=== PATIENT | male | born 1945 | race Caucasian/White ===

== ENCOUNTER 2018-08-26 09:43 | Emergency (ER) | payer MEDICARE, BC ==
[2018-08-26 10:15] VITALS: RESP 18; TEMP 98.3
[2018-08-26] MEDS ORDERED: SODIUM CHLORIDE 0.9% 1,000 ML IV STA (10:33)
--- NOTE | 2018-08-26 10:37 | ED ---
General Adult HPI - General Chief complaint: Nausea/Vomiting/Diarrhea Stated complaint: diarrhea Time Seen by Provider: 08/26/18 10:21 Source: patient, RN notes reviewed Mode of arrival: ambulatory Limitations: no limitations - History of Present Illness Initial comments: Patient 73-year-old male presented to the emergency room today with chief complaint of diarrhea times one week. Patient does admit that he's been having episodes for 5 times per day. He does admit that he's had some cramping in lower abdomen greater on the right side. He states it's a 3/10. He does admit that he's felt that his abdomen has been somewhat decreased. Patient's states does not drink enough fluids. Patient was also admits that he's had some confusion. States the 17th turning the ER. States that he was using a car came to try to open up the house door. Patient does admit that he did notice some new symptoms the other day. States this feels better today. Patient denies any recent fever, chills, shortness of breath, chest pain, back pain, nausea or vomiting, numbness or tingling, dysuria or hematuria, constipation, headaches or visual changes, or any other complaints. - Related Data Home Medications Medication Instructions Recorded Confirmed Aspirin EC [Ecotrin] 325 mg PO DAILY 08/26/18 08/26/18 Carvedilol [Coreg] 12.5 mg PO BID 08/26/18 08/26/18 Midodrine [ProAmatine] 5 mg PO TID 08/26/18 08/26/18 Omeprazole 20 mg PO DAILY 08/26/18 08/26/18 Pravastatin Sodium [Pravachol] 40 mg PO DAILY 08/26/18 08/26/18 amLODIPine [Norvasc] 10 mg PO DAILY 08/26/18 08/26/18 Previous Rx's Medication Instructions Recorded Loperamide [Imodium] 2 mg PO DIRECTED #20 capsule 08/26/18 Ondansetron Odt [Zofran ODT] 4 mg PO Q8HR PRN #20 tab 08/26/18 Allergies Allergy/AdvReac Type Severity Reaction Status Date / Time morphine AdvReac Confusion Verified 08/26/18 10:29 Review of Systems ROS Statement: Those systems with pertinent positive or pertinent negative responses have been documented in the HPI. ROS Other: All systems not noted in ROS Statement are negative. Past Medical History Past Medical History: Hyperlipidemia, Hypertension, Myocardial Infarction ([place]) Additional Past Medical History / Comment(s): Cancer of head, neck, throat- resolved. History of Any Multi-Drug Resistant Organisms: None Reported Past Surgical History: Heart Catheterization With Stent Past Psychological History: No Psychological Hx Reported Smoking Status: Never smoker Past Alcohol Use History: None Reported Past Drug Use History: None Reported General Exam - General Exam Comments Initial Comments: General: The patient is awake and alert, in no distress, and does not appear acutely ill. Eye: Pupils are equal, round and reactive to light. Extra-ocular movements are intact. No nystagmus. There is normal conjunctiva bilaterally. No signs of icterus. Ears, nose, mouth and throat: There are moist mucous membranes and no oral lesions. Neck: The neck is supple, there is no tenderness or JVD. Cardiovascular: There is a regular rate and rhythm. No murmur, rub or gallop is appreciated. Respiratory: Lungs are clear to auscultation, respirations are non-labored, breath sounds are equal. No wheezes, stridor, rales, or rhonchi. Gastrointestinal: Soft on palpation. Patient does have tenderness right lower quadrant. No rebound, guarding or CVA tenderness. Musculoskeletal: Normal ROM, no tenderness. Sensation intact. Strength 5/5. Pulses equal bilaterally 2+. Neurological: A&O x 3. CN II-XII intact, There are no obvious motor or sensory deficits. Coordination appears grossly intact. Speech is normal. Skin: Skin is warm and dry and no rashes or lesions are noted. Psychiatric: Cooperative, appropriate mood & affect, normal judgment. Limitations: no limitations Course Vital Signs 08/26/18 08/26/18 10:09 12:57 Temperature 98.3 F Pulse Rate 86 100 Respiratory 18 18 Rate Blood Pressure 91/57 152/102 O2 Sat by Pulse 97 98 Oximetry Medical Decision Making - Medical Decision Making Patient's exam at this time shows no signs of distress. He is feeling better in the emergency room with IV fluids. Patient's CT of the abdomen and pelvis show evidence of colitis. Results were discussed with the patient. Patient's labs been reviewed. Discussed with attending physician Dr. Coffey. At this time patient discharged home. Patient treated with Imodium for diarrhea and Zofran for nausea. Advised following up with the family physician over the next 2 days return if symptoms increase worsen or for any other concerns. - Lab Data Result diagrams: 08/26/18 10:45 08/26/18 10:45 Lab Results 08/26/18 08/26/18 08/26/18 Range/Units 10:45 10:45 10:45 WBC 8.8 (3.8-10.6) k/uL RBC 4.58 (4.30-5.90) m/uL Hgb 14.3 (13.0-17.5) gm/dL Hct 43.2 (39.0-53.0) % MCV 94.4 (80.0-100.0) fL MCH 31.3 (25.0-35.0) pg MCHC 33.2 (31.0-37.0) g/dL RDW 13.1 (11.5-15.5) % Plt Count 210 (150-450) k/uL Neutrophils % 83 % Lymphocytes % 8 % Monocytes % 6 % Eosinophils % 0 % Basophils % 0 % Neutrophils # 7.3 (1.3-7.7) k/uL Lymphocytes # 0.7 L (1.0-4.8) k/uL Monocytes # 0.6 (0-1.0) k/uL Eosinophils # 0.0 (0-0.7) k/uL Basophils # 0.0 (0-0.2) k/uL PT 10.4 (9.0-12.0) sec INR 1.1 (<1.2) APTT 26.7 (22.0-30.0) sec Sodium 134 L (137-145) mmol/L Potassium 4.3 (3.5-5.1) mmol/L Chloride 101 (98-107) mmol/L Carbon Dioxide 24 (22-30) mmol/L Anion Gap 9 mmol/L BUN 24 H (9-20) mg/dL Creatinine 0.95 (0.66-1.25) mg/dL Est GFR (CKD-EPI)AfAm >90 (>60 ml/min/1.73 sqM) Est GFR (CKD-EPI)NonAf 78 (>60 ml/min/1.73 sqM) Glucose 110 H (74-99) mg/dL Calcium 8.9 (8.4-10.2) mg/dL Total Bilirubin 0.7 (0.2-1.3) mg/dL AST 25 (17-59) U/L ALT 30 (21-72) U/L Alkaline Phosphatase 83 (38-126) U/L Total Protein 6.7 (6.3-8.2) g/dL Albumin 3.5 (3.5-5.0) g/dL Amylase <30 L (30-110) U/L Lipase 25 (23-300) U/L Urine Color Urine Appearance (Clear) Urine pH (5.0-8.0) Ur Specific [place] (1.001-1.035) Urine Protein (Negative) Urine Glucose (UA) (Negative) Urine Ketones (Negative) Urine Blood (Negative) Urine Nitrite (Negative) Urine Bilirubin (Negative) Urine Urobilinogen (<2.0) mg/dL Ur Leukocyte Esterase (Negative) Urine RBC (0-5) /hpf Urine WBC (0-5) /hpf Ur Squamous Epith Cells (0-4) /hpf Urine Mucus (None) /hpf 08/26/18 Range/Units 12:54 WBC (3.8-10.6) k/uL RBC (4.30-5.90) m/uL Hgb (13.0-17.5) gm/dL Hct (39.0-53.0) % MCV (80.0-100.0) fL MCH (25.0-35.0) pg MCHC (31.0-37.0) g/dL RDW (11.5-15.5) % Plt Count (150-450) k/uL Neutrophils % % Lymphocytes % % Monocytes % % Eosinophils % % Basophils % % Neutrophils # (1.3-7.7) k/uL Lymphocytes # (1.0-4.8) k/uL Monocytes # (0-1.0) k/uL Eosinophils # (0-0.7) k/uL Basophils # (0-0.2) k/uL PT (9.0-12.0) sec INR (<1.2) APTT (22.0-30.0) sec Sodium (137-145) mmol/L Potassium (3.5-5.1) mmol/L Chloride (98-107) mmol/L Carbon Dioxide (22-30) mmol/L Anion Gap mmol/L BUN (9-20) mg/dL Creatinine (0.66-1.25) mg/dL Est GFR (CKD-EPI)AfAm (>60 ml/min/1.73 sqM) Est GFR (CKD-EPI)NonAf (>60 ml/min/1.73 sqM) Glucose (74-99) mg/dL Calcium (8.4-10.2) mg/dL Total Bilirubin (0.2-1.3) mg/dL AST (17-59) U/L ALT (21-72) U/L Alkaline Phosphatase (38-126) U/L Total Protein (6.3-8.2) g/dL Albumin (3.5-5.0) g/dL Amylase (30-110) U/L Lipase (23-300) U/L Urine Color Yellow Urine Appearance Clear (Clear) Urine pH 5.5 (5.0-8.0) Ur Specific [place] 1.011 (1.001-1.035) Urine Protein 1+ H (Negative) Urine Glucose (UA) Negative (Negative) Urine Ketones Negative (Negative) Urine Blood Trace H (Negative) Urine Nitrite Negative (Negative) Urine Bilirubin Negative (Negative) Urine Urobilinogen <2.0 (<2.0) mg/dL Ur Leukocyte Esterase Negative (Negative) Urine RBC 1 (0-5) /hpf Urine WBC <1 (0-5) /hpf Ur Squamous Epith Cells <1 (0-4) /hpf Urine Mucus Rare H (None) /hpf Disposition Clinical Impression: Colitis Disposition: HOME SELF-CARE Condition: Good Instructions: Colitis (ED) Additional Instructions: Please use medication as discussed. Please follow-up with family doctor in the next 2 days of symptoms have not improved. Please return to emergency room if the symptoms increase or worsen or for any other concerns. Prescriptions: Loperamide [Imodium] 2 mg PO DIRECTED #20 capsule Ondansetron Odt [Zofran ODT] 4 mg PO Q8HR PRN #20 tab PRN Reason: Nausea Is patient prescribed a controlled substance at d/c from ED?: No Referrals: Gerald Nguyen MD [Primary Care Provider] - 1-2 days Time of Disposition: 14:11
[2018-08-26 11:31] LABS: Basophils % (A) 0 %; Eosinophils % (A) 0 %; HCT 43.2 % (39.0-53.0); HGB 14.3 gm/dL (13.0-17.5); Lymphocytes # (A) 0.7 k/uL (1.0-4.8); Lymphocytes % (A) 8 %; MCH 31.3 pg (25.0-35.0); MCHC 33.2 g/dL (31.0-37.0); MCV 94.4 fL (80.0-100.0); Mean Platelet Volume 7.3; Monocytes # (A) 0.6 k/uL (0-1.0); Monocytes % (A) 6 %; Neutrophils # (A) 7.3 k/uL (1.3-7.7); Neutrophils % (A) 83 %; Platelet Count 210 k/uL (150-450); RBC 4.58 m/uL (4.30-5.90); RDW 13.1 % (11.5-15.5); WBC 8.8 k/uL (3.8-10.6)
[2018-08-26 11:47] LABS: ALT 30 U/L (21-72); AST 25 U/L (17-59); Albumin 3.5 g/dL (3.5-5.0); Alkaline Phosphatase 83 U/L (38-126); Amylase <30 U/L (30-110); Anion Gap 9 mmol/L; Blood Urea Nitrogen 24 mg/dL (9-20); Calcium 8.9 mg/dL (8.4-10.2); Carbon Dioxide 24 mmol/L (22-30); Chloride 101 mmol/L (98-107); Glucose 110 mg/dL (74-99); Lipase 25 U/L (23-300); Potassium 4.3 mmol/L (3.5-5.1); Sodium 134 mmol/L (137-145); Total Bilirubin 0.7 mg/dL (0.2-1.3); Total Protein 6.7 g/dL (6.3-8.2)
[2018-08-26 11:55] LABS: INR 1.1 (<1.2); Partial Thromboplastin Time 26.7 sec (22.0-30.0); Prothrombin Time 10.4 sec (9.0-12.0)
[2018-08-26 13:13] LABS: Appearance,Urine Clear (Clear); Bilirubin,Urine Negative (Negative); Blood,Urine Trace (Negative); Color,Urine Yellow; Glucose,Urine (UA) Negative (Negative); Ketones,Urine Negative (Negative); Leukocyte Esterase,Urine Negative (Negative); Mucus,Urine Rare /hpf; Nitrite,Urine Negative (Negative); PH, Urine 5.5 (5.0-8.0); Protein,Urine 1+ (Negative); RBC,Urine 1 /hpf (0-5); Specific Gravity,Urine 1.011 (1.001-1.035); Squamous Epithelial Cell,Urine <1 /hpf (0-4); Urobilinogen,Urine <2.0 mg/dL (<2.0)
--- NOTE | 2018-08-26 13:20 | CT ---
EXAMINATION TYPE: CT abdomen pelvis w con DATE OF EXAM: 08/26/2018 COMPARISON: None HISTORY: Periumbilical pain and diarrhea. CT DLP: 749.6 mGycm Automated exposure control for dose reduction was used. TECHNIQUE: Helical acquisition of images from the lung bases through the pelvis have been completed. CONTRAST: Performed without Oral Contrast and with IV Contrast, patient injected with 100 mL of Isovue 300. FINDINGS: Small umbilical hernia contains fat. LUNG BASES: Some probable dependent atelectatic changes are present. Nodular density in axial image 1 in the left upper lobe measures only 2 to 3 mm laterally, shows some questionable some central incre ased density AORTA: No significant abnormality is appreciated. LIVER/GB: Mild prominence of the intrahepatic biliary ducts, there is no evident mass, gallbladder is somewhat distended PANCREAS: No significant abnormality is seen. SPLEEN: No significant abnormality is seen. ADRENALS: No significant abnormality is seen. KIDNEYS: No significant abnormality is seen. REPRODUCTIVE ORGANS: No significant abnormality is seen BOWEL: Colonic wall thickening is present. Fluid-filled appearance is noted within multiple loops of colon. Appendix is normal FREE AIR: No Free Air visible. ASCITES: None visible. PELVIC ADENOPATHY: None visualized. RETROPERITONEAL ADENOPATHY: No Retroperitoneal Adenopathy visible. URINARY BLADDER: No significant abnormality is seen. OSSEOUS STRUCTURES: Degenerative disc changes are present, there is facet arthropathy especially at the lower lumbar spine. Multilevel Schmorl's node formation in the visualized spine. IMPRESSION: CORRELATE FOR POSSIBLE COLITIS. Follow-up as indicated.
[2018-08-26 14:21] VITALS: BP 145/87; PULSE 78
== END 2018-08-26 14:20 | disposition home or self-care (01) ==
LOC: EC 09:43
DX: K52.9 Noninfective gastroenteritis and colitis, unspecified (principal); R41.0 Disorientation, unspecified; E78.5 Hyperlipidemia, unspecified; I10 Essential (primary) hypertension; I25.2 Old myocardial infarction; Z85.89 Personal history of malignant neoplasm of other organs and systems; Z79.82 Long term (current) use of aspirin; Z79.899 Other long term (current) drug therapy; Z88.5 Allergy status to narcotic agent; Z95.5 Presence of coronary angioplasty implant and graft
CPT/HCPCS: 99284; 96360; 36415; 80053; 82150; 83690; 85025; 85610; 85730; 81001; 74177; Q9967

== ENCOUNTER → 2019-04-07 | Outpatient (CLI) | payer MEDICARE, BC ==
[2019-04-07 13:15] LABS: Basophils # (A) 0.1 k/uL (0-0.2); Basophils % (A) 1 %; Eosinophils # (A) 0.2 k/uL (0-0.7); Eosinophils % (A) 3 %; HCT 45.1 % (39.0-53.0); HGB 14.3 gm/dL (13.0-17.5); Lymphocytes # (A) 1.1 k/uL (1.0-4.8); Lymphocytes % (A) 15 %; MCHC 31.7 g/dL (31.0-37.0); MCV 94.6 fL (80.0-100.0); Mean Platelet Volume 7.2; Monocytes # (A) 0.3 k/uL (0-1.0); Monocytes % (A) 4 %; Neutrophils # (A) 5.4 k/uL (1.3-7.7); Neutrophils % (A) 76 %; Platelet Count 298 k/uL (150-450); RBC 4.76 m/uL (4.30-5.90); RDW 14.7 % (11.5-15.5); WBC 7.2 k/uL (3.8-10.6)
[2019-04-07 19:12] LABS: African American GFR (CKD) 68.1 (60.0-200.0); Albumin 4.5 g/dL (3.80-4.90); Albumin/Globulin Ratio 1.88 (1.60-3.17); Anion Gap 8.6 mmol/L (4.00-12.00); BUN/Creat Ratio 21.67 Ratio (12.00-20.00); Calcium 9.4 mg/dL (8.7-10.3); Carbon Dioxide 28.4 mmol/L (21.6-31.8); Globulin 2.4 g/dL (1.6-3.3); Potassium 4.7 mmol/L (3.5-5.5); Total Bilirubin 0.5 mg/dL (0.2-1.2); Total Protein 6.9 g/dL (6.2-8.2)
[2019-04-07 19:18] LABS: T4, Free (Free Thyroxine) 1.3 ng/dL (0.80-1.80)
[2019-04-07 20:21] LABS: Vitamin D 25 Hydroxy <4.2 ng/mL (30.0-100.0)
== END | disposition home or self-care (01) ==
LOC: LABWHC1 12:25
PROVIDERS: ATTEND Nurse Practitioner Acute Care
DX: R41.3 Other amnesia (principal); R51 Headache; R55 Syncope and collapse; E55.9 Vitamin D deficiency, unspecified
CPT/HCPCS: 36415; 80053; 82306; 82607; 84207; 84439; 84443; 84481; 85025

== ENCOUNTER 2019-12-23 09:47 | Inpatient (IN) | payer MEDICARE, BC ==
[2019-12-23] MEDS ORDERED: SODIUM CHLORIDE 0.9% 500 ML 500 ML IV STA (10:20)
[2019-12-23] MEDS ORDERED: IPRATROPIUM-ALBUTEROL 3 ML NEB INHALATION STA (11:02)
--- NOTE | 2019-12-23 11:23 | XR ---
EXAMINATION TYPE: XR chest 2V DATE OF EXAM: 12/23/2019 COMPARISON: None HISTORY: 74-year-old male shortness of breath, cough, difficulty breathing TECHNIQUE: AP and lateral views FINDINGS: Heart normal size. Mild elongation thoracic aorta. Mild interstitial prominence as a chronic appearan ce. Nodularity of the left base, suspected nipple shadow. Follow-up can be performed utilizing nipple markers. Otherwise, no consolidation or pleural effusion. IMPRESSION: No acute process seen. Left basilar nodule, suspected nipple shadow. Follow-up in 4-6 weeks utilizing nipple markers to reassess.
[2019-12-23 11:28] LABS: Basophils % (A) 0 %; Eosinophils % (A) 0 %; HCT 42.2 % (39.0-53.0); Lymphocytes # (A) 0.7 k/uL (1.0-4.8); Lymphocytes % (A) 5 %; MCH 30.6 pg (25.0-35.0); MCHC 33.2 g/dL (31.0-37.0); MCV 92.4 fL (80.0-100.0); Mean Platelet Volume 7.5; Monocytes # (A) 0.3 k/uL (0-1.0); Monocytes % (A) 2 %; Neutrophils # (A) 14.4 k/uL (1.3-7.7); Neutrophils % (A) 93 %; Platelet Count 456 k/uL (150-450); RBC 4.57 m/uL (4.30-5.90); RDW 12.7 % (11.5-15.5); WBC 15.5 k/uL (3.8-10.6)
[2019-12-23 11:30] LABS: Albumin 3.7 g/dL (3.5-5.0); Calcium 9.3 mg/dL (8.4-10.2); Potassium 4.8 mmol/L (3.5-5.1); Total Bilirubin 0.4 mg/dL (0.2-1.3)
[2019-12-23 11:35] LABS: INR 1.1 (<1.2); Prothrombin Time 10.9 sec (9.0-12.0)
--- NOTE | 2019-12-23 11:52 | ED ---
General Adult HPI - General Chief complaint: Upper Respiratory Infection Stated complaint: pneumonia Time Seen by Provider: 12/23/19 10:20 Source: patient, family, RN notes reviewed Mode of arrival: ambulatory Limitations: no limitations - History of Present Illness Initial comments: 34-year-old male presents emergency Department chief complaint of increasing shortness breath, cough congestion. Patient has been sick for last 3 weeks. Patient has a productive cough she has been on antibiotics in which they recently increased his antibiotics and steroids. Patient states that helping. Family brings notices had increased shortness of breath also given leg swelling. Denies any chest pain he's had intermittent fevers. Patient was sent over emergency Department from PCPs office. Patient denies any leg swelling, abdominal pain. Patient has a history of throat, neck cancer. Patient states this was several years ago. - Related Data Home Medications Medication Instructions Recorded Confirmed Aspirin EC [Ecotrin] 325 mg PO DAILY 08/26/18 08/26/18 Carvedilol [Coreg] 12.5 mg PO BID 08/26/18 08/26/18 Midodrine [ProAmatine] 5 mg PO TID 08/26/18 08/26/18 Omeprazole 20 mg PO DAILY 08/26/18 08/26/18 Pravastatin Sodium [Pravachol] 40 mg PO DAILY 08/26/18 08/26/18 amLODIPine [Norvasc] 10 mg PO DAILY 08/26/18 08/26/18 Previous Rx's Medication Instructions Recorded Loperamide [Imodium] 2 mg PO DIRECTED #20 capsule 08/26/18 Ondansetron Odt [Zofran ODT] 4 mg PO Q8HR PRN #20 tab 08/26/18 Allergies Allergy/AdvReac Type Severity Reaction Status Date / Time morphine AdvReac Confusion Verified 08/26/18 10:29 Review of Systems ROS Statement: Those systems with pertinent positive or pertinent negative responses have been documented in the HPI. ROS Other: All systems not noted in ROS Statement are negative. Past Medical History Past Medical History: Hyperlipidemia, Hypertension, Myocardial Infarction ([place]) Additional Past Medical History / Comment(s): Cancer of head, neck, throat-resolved. History of Any Multi-Drug Resistant Organisms: None Reported Past Surgical History: Heart Catheterization With Stent Past Psychological History: No Psychological Hx Reported Smoking Status: Never smoker Past Alcohol Use History: None Reported Past Drug Use History: None Reported General Exam Limitations: no limitations General appearance: alert, in no apparent distress Head exam: Present: atraumatic, normocephalic, normal inspection Eye exam: Present: normal appearance, PERRL, EOMI. Absent: scleral icterus, conjunctival injection, periorbital swelling ENT exam: Present: normal exam, normal oropharynx, mucous membranes moist, TM's normal bilaterally Neck exam: Present: normal inspection, full ROM. Absent: tenderness, meningismus, lymphadenopathy Respiratory exam: Present: wheezes, rhonchi. Absent: respiratory distress, rales, stridor Cardiovascular Exam: Present: regular rate, normal rhythm, normal heart sounds. Absent: systolic murmur, diastolic murmur, rubs, gallop, clicks GI/Abdominal exam: Present: soft, normal bowel sounds. Absent: distended, tenderness, guarding, rebound, rigid Course Vital Signs 12/23/19 12/23/19 12/23/19 10:06 10:46 10:50 Temperature 97.7 F Pulse Rate 85 89 Respiratory 18 18 18 Rate Blood Pressure 95/63 140/101 O2 Sat by Pulse 96 97 Oximetry 12/23/19 12/23/19 11:14 11:35 Temperature Pulse Rate 91 93 Respiratory Rate Blood Pressure O2 Sat by Pulse Oximetry Medical Decision Making - Medical Decision Making 74-year-old male presented for dyspnea. Patient had persistent wheezing, exertional dyspnea difficulty ambulating without shortness of breath or talking or shortness of breath. Patient will be admitted for tracheobronchitis fell outpatient treatment. - Lab Data Result diagrams: 12/23/19 10:55 12/23/19 10:55 Lab Results 12/23/19 12/23/19 12/23/19 Range/Units 10:55 10:55 10:55 WBC 15.5 H (3.8-10.6) k/uL RBC 4.57 (4.30-5.90) m/uL Hgb 14.0 (13.0-17.5) gm/dL Hct 42.2 (39.0-53.0) % MCV 92.4 (80.0-100.0) fL MCH 30.6 (25.0-35.0) pg MCHC 33.2 (31.0-37.0) g/dL RDW 12.7 (11.5-15.5) % Plt Count 456 H (150-450) k/uL Neutrophils % 93 % Lymphocytes % 5 % Monocytes % 2 % Eosinophils % 0 % Basophils % 0 % Neutrophils # 14.4 H (1.3-7.7) k/uL Lymphocytes # 0.7 L (1.0-4.8) k/uL Monocytes # 0.3 (0-1.0) k/uL Eosinophils # 0.0 (0-0.7) k/uL Basophils # 0.0 (0-0.2) k/uL PT (9.0-12.0) sec INR (<1.2) APTT (22.0-30.0) sec Sodium 134 L (137-145) mmol/L Potassium 4.8 (3.5-5.1) mmol/L Chloride 102 (98-107) mmol/L Carbon Dioxide 21 L (22-30) mmol/L Anion Gap 11 mmol/L BUN 34 H (9-20) mg/dL Creatinine 1.04 (0.66-1.25) mg/dL Est GFR (CKD-EPI)AfAm 81 (>60 ml/min/1.73 sqM) Est GFR (CKD-EPI)NonAf 70 (>60 ml/min/1.73 sqM) Glucose 143 H (74-99) mg/dL Plasma Lactic Acid Elvin 1.3 (0.7-2.0) mmol/L Calcium 9.3 (8.4-10.2) mg/dL Magnesium 2.0 (1.6-2.3) mg/dL Total Bilirubin 0.4 (0.2-1.3) mg/dL AST 18 (17-59) U/L ALT 12 (4-49) U/L Alkaline Phosphatase 93 (38-126) U/L Troponin I (0.000-0.034) ng/mL NT-Pro-B Natriuret Pep pg/mL Total Protein 7.0 (6.3-8.2) g/dL Albumin 3.7 (3.5-5.0) g/dL Influenza Type A RNA (Not Detectd) Influenza Type B (PCR) (Not Detectd) 12/23/19 12/23/19 12/23/19 Range/Units 10:55 10:55 10:55 WBC (3.8-10.6) k/uL RBC (4.30-5.90) m/uL Hgb (13.0-17.5) gm/dL Hct (39.0-53.0) % MCV (80.0-100.0) fL MCH (25.0-35.0) pg MCHC (31.0-37.0) g/dL RDW (11.5-15.5) % Plt Count (150-450) k/uL Neutrophils % % Lymphocytes % % Monocytes % % Eosinophils % % Basophils % % Neutrophils # (1.3-7.7) k/uL Lymphocytes # (1.0-4.8) k/uL Monocytes # (0-1.0) k/uL Eosinophils # (0-0.7) k/uL Basophils # (0-0.2) k/uL PT 10.9 (9.0-12.0) sec INR 1.1 (<1.2) APTT 23.0 (22.0-30.0) sec Sodium (137-145) mmol/L Potassium (3.5-5.1) mmol/L Chloride (98-107) mmol/L Carbon Dioxide (22-30) mmol/L Anion Gap mmol/L BUN (9-20) mg/dL Creatinine (0.66-1.25) mg/dL Est GFR (CKD-EPI)AfAm (>60 ml/min/1.73 sqM) Est GFR (CKD-EPI)NonAf (>60 ml/min/1.73 sqM) Glucose (74-99) mg/dL Plasma Lactic Acid Elvin (0.7-2.0) mmol/L Calcium (8.4-10.2) mg/dL Magnesium (1.6-2.3) mg/dL Total Bilirubin (0.2-1.3) mg/dL AST (17-59) U/L ALT (4-49) U/L Alkaline Phosphatase (38-126) U/L Troponin I <0.012 (0.000-0.034) ng/mL NT-Pro-B Natriuret Pep 423 pg/mL Total Protein (6.3-8.2) g/dL Albumin (3.5-5.0) g/dL Influenza Type A RNA (Not Detectd) Influenza Type B (PCR) (Not Detectd) 12/23/19 Range/Units 11:10 WBC (3.8-10.6) k/uL RBC (4.30-5.90) m/uL Hgb (13.0-17.5) gm/dL Hct (39.0-53.0) % MCV (80.0-100.0) fL MCH (25.0-35.0) pg MCHC (31.0-37.0) g/dL RDW (11.5-15.5) % Plt Count (150-450) k/uL Neutrophils % % Lymphocytes % % Monocytes % % Eosinophils % % Basophils % % Neutrophils # (1.3-7.7) k/uL Lymphocytes # (1.0-4.8) k/uL Monocytes # (0-1.0) k/uL Eosinophils # (0-0.7) k/uL Basophils # (0-0.2) k/uL PT (9.0-12.0) sec INR (<1.2) APTT (22.0-30.0) sec Sodium (137-145) mmol/L Potassium (3.5-5.1) mmol/L Chloride (98-107) mmol/L Carbon Dioxide (22-30) mmol/L Anion Gap mmol/L BUN (9-20) mg/dL Creatinine (0.66-1.25) mg/dL Est GFR (CKD-EPI)AfAm (>60 ml/min/1.73 sqM) Est GFR (CKD-EPI)NonAf (>60 ml/min/1.73 sqM) Glucose (74-99) mg/dL Plasma Lactic Acid [place] (0.7-2.0) mmol/L Calcium (8.4-10.2) mg/dL Magnesium (1.6-2.3) mg/dL Total Bilirubin (0.2-1.3) mg/dL AST (17-59) U/L ALT (4-49) U/L Alkaline Phosphatase (38-126) U/L Troponin I (0.000-0.034) ng/mL NT-Pro-B Natriuret Pep pg/mL Total Protein (6.3-8.2) g/dL Albumin (3.5-5.0) g/dL Influenza Type A RNA Not Detected (Not Detectd) Influenza Type B (PCR) Not Detected (Not Detectd) Disposition Clinical Impression: Tracheobronchitis, Acute bronchospasm, Dyspnea, Failure of outpatient treatment Disposition: ADMITTED IP TO THIS HOSP Condition: Fair Referrals: Gerald Nguyen MD [Primary Care Provider] - 1-2 days
[2019-12-23] MEDS ORDERED: methylPREDNISolone SOD SUCCI 125 MG/2 ML VIAL IV STA (13:02)
[2019-12-23] MEDS ORDERED: AZITHROMYCIN 500 MG in SODIUM CHLORIDE 0.9% 250 ML IVPB STA (13:03)
[2019-12-23] MEDS ORDERED: cefTRIAXone IN SWFI 1,000 MG/10 ML SYRINGE IVP STA (13:03)
--- NOTE | 2019-12-23 15:27 | P.CNPUL ---
History of Present Illness Consult date: 12/23/19 Requesting physician: Reji Irby Reason for consult: dyspnea, cough Chief complaint: Wheezing for the last 3 weeks History of present illness: This is a 74-year-old white male with history of throat cancer, diagnosed and treated over 20 years ago. Patient had surgery done at the [facility]. He never smoked. Patient is known to have history of hypertension, GERD, hypercholesterolemia, presented to his primary care physician recently with 3 weeks history of cough and wheezing. Cough is described as productive with whitish phlegm. But mostly the wheezing has been persistent. Patient denies any specific exposure. Denies any previous history of COPD or asthmatic bronchitis or bronchial asthma. Denies any active GERD symptoms. Patient was given by his primary care physician a course of antibiotics and steroids burst and taper. However has not been making much improvement. Hence the patient was sent to the ER. Chest x-ray showed no evidence of active disease. There was a questionable left lung nodule but seems to be more of a nipple shadow. His CBC showed leukocytosis with WBC count of 15.5. Hemoglobin 14.0. Electrolytes were normal. Liver profile was normal. Lactic acid was normal. Influenza screen was negative. Patient was admitted, and this consult was initiated. Review of Systems Constitutional: Negative, denies fever chills or weight loss. HEENT: Negative.. Pulmonary: As noted in HPI, mostly cough and wheezing. Cardiac: Denies any chest pain or orthopnea PND. GI: Denies any nausea vomiting abdominal pain melena or hematemesis. Genitourinary: Denies any dysuria hematuria frequency urgency. Skin negative denies any rashes. Hematologic: No clotting bleeding or bruising Neurologic: Denies headache blurred vision dizziness or syncope. Endocrine: Denies any heat or cold intolerance. Musculoskeletal: Denies any muscle weakness or limitation in range of motion. Psychiatric: Denies any symptoms of active depression. Past Medical History Past Medical History: GERD/Reflux, Hyperlipidemia, Hypertension, Myocardial Infarction ([place]), Prostate Disorder, Rheumatoid Arthritis ([place]) Additional Past Medical History / Comment(s): Cancer of head, neck, throat- resolved, had in 1999 did receive radiation, hypotension (BP fluctuates a lot), Last Myocardial Infarction Date:: 10-29-01 History of Any Multi-Drug Resistant Organisms: None Reported Past Surgical History: Heart Catheterization With Stent Additional Past Surgical History / Comment(s): had a carotid stent placed during CA treatment. 42 lymph nodes removed. Date of Last Stent Placement:: 10-29-01 Past Psychological History: No Psychological Hx Reported Smoking Status: Never smoker Past Alcohol Use History: None Reported Past Drug Use History: None Reported - Past Family History Father Additional Family Medical History / Comment(s): heart disease Mother Additional Family Medical History / Comment(s): heart disease Medications and Allergies Home Medications Medication Instructions Recorded Confirmed Type Omeprazole 20 mg PO DAILY 08/26/18 12/23/19 History Pravastatin Sodium [Pravachol] 40 mg PO DAILY 08/26/18 12/23/19 History Albuterol Nebulized [Ventolin 2.5 mg INHALATION RT-TID PRN 12/23/19 12/23/19 History Nebulized] Carvedilol [Coreg] 3.125 mg PO BID 12/23/19 12/23/19 History Gas Relief 1 tab PO DAILY PRN 12/23/19 12/23/19 History HYDROcodone/APAP 5-325MG [[place] 1 tab PO BID PRN 12/23/19 12/23/19 History 5-325] Levofloxacin [Levaquin] 500 mg PO DAILY 12/23/19 12/23/19 History Midodrine HCl [ProAmantine] 2.5 mg PO TID 12/23/19 12/23/19 History Naproxen 500 mg PO BID PRN 12/23/19 12/23/19 History Renew Life 1 tab PO DAILY 12/23/19 12/23/19 History Tamsulosin HCl [Flomax] 0.4 mg PO BID 12/23/19 12/23/19 History amLODIPine [Norvasc] 2.5 mg PO DAILY 12/23/19 12/23/19 History predniSONE See Taper PO DAILY 12/23/19 12/23/19 History Allergies Allergy/AdvReac Type Severity Reaction Status Date / Time morphine AdvReac Confusion Verified 12/23/19 14:12 Physical Exam Vitals: Vital Signs Temp Pulse Pulse Resp BP BP Pulse Ox 12/23/19 15:00 98.4 F 72 16 136/56 94 L 12/23/19 14:09 95/68 12/23/19 13:26 89 16 141/95 98 12/23/19 11:35 93 12/23/19 11:14 91 12/23/19 10:50 18 12/23/19 10:46 89 18 140/101 97 12/23/19 10:06 97.7 F 85 18 95/63 96 Intake and Output 12/23/19 12/23/19 12/23/19 06:59 14:59 22:59 Other: Weight 69.4 kg Physical Exam: Revealed a 74-year-old white male in no distress. Head: Atraumatic, normocephalic. HEENT:[Neck is supple.] [No neck masses.] [No thyromegaly.] [No JVD.] Chest: [Symmetrical chest expansion, diffuse rhonchi and wheezes noted bilaterally more so on forced expiratory maneuver. Cardiac Exam: [Normal S1 and S2, no S3 gallop, no murmur.] Abdomen: [Soft, nontender, no megaly, no rebound, no guarding, normal bowel sounds.] Extremities: [No clubbing, no edema, no cyanosis.] Neurological Exam: [No focal neurologic deficit.] Results - Laboratory Findings CBC and BMP: 12/23/19 10:55 12/23/19 10:55 PT/INR, D-dimer PT 10.9 sec (9.0-12.0) 12/23/19 10:55 INR 1.1 (<1.2) 12/23/19 10:55 Abnormal lab findings: Abnormal Labs 12/23/19 12/23/19 10:55 10:55 WBC 15.5 H Plt Count 456 H Neutrophils # 14.4 H Lymphocytes # 0.7 L Sodium 134 L Carbon Dioxide 21 L BUN 34 H Glucose 143 H - Diagnostic Findings Chest x-ray: image reviewed (Chest x-ray is basically unremarkable, left lower lobe nodule likely a nipple shadow.) Assessment and Plan Assessment: Impression: Acute tracheobronchitis and reactive bronchospasm. Failed outpatient therapy. History of head and neck cancer, diagnosed and treated over 20 years ago. Benign essential hypertension History of coronary artery disease and previous [place], previous stent placement. Dyslipidemia. Recommendation: Antibiotics, patient is presently on Rocephin and Zithromax. Steroids patient is presently on methylprednisolone 60 mg IV push every 6 hours. Bronchodilators/add Pulmicort. Consider bronchoscopy if the patient does not improve in the next 48 hours. Resume home meds including Coreg. And resume pravastatin. We will reevaluate the patient in the next 24 hours, and depending on his response to treatment further decisions to be made. Time with Patient: Greater than 30
[2019-12-23] MEDS: MIDODRINE 5 MG TAB PO SCH ×2 (16:24→21:09)
[2019-12-23 16:31] LABS: Glucose,Whole Blood 158 mg/dL (75-99)
[2019-12-23] MEDS: CARVEDILOL 12.5 MG TAB PO SCH (16:56)
[2019-12-23] MEDS: INSULIN ASPART (NovoLOG) 100 UNIT/ML VIAL SQ SCH ×2 (16:56→21:10)
[2019-12-23] MEDS ORDERED: methylPREDNISolone SOD SUCCI 125 MG/2 ML VIAL IV SCH (18:00)
[2019-12-23] MEDS: IPRATROPIUM-ALBUTEROL 3 ML NEB INHALATION SCH ×2 (18:57→18:58)
[2019-12-23] MEDS: BUDESONIDE 1 MG/2 ML NEBU INHALATION SCH (18:58)
[2019-12-23 20:07] LABS: Glucose,Whole Blood 148 mg/dL (75-99)
[2019-12-23] MEDS: ENOXAPARIN 40 MG/0.4 ML SYRINGE SQ SCH (21:17)
--- NOTE | 2019-12-23 21:17 | P.HPIM ---
History of Present Illness H&P Date: 12/23/19 Chief Complaint: Congested cough History of presenting complaint: This is a very pleasant [address] HUNT. Chronic stable medical conditions include GERD, hypertension, hyperlipidemia, coronary artery distended, rheumatoid arthritis. Patient also had a history of head and neck cancer back in 1999 treated with radiation treatment. Patient for 2 weeks has been struggling with wheezing shortness of breath cough congestion and clear sputum. Has a course of antibiotic steroids by his family doctor. Not much improvement. Because of steroids appetite is actually rather good. Significant congested still hence admitted for the same. No muscle achiness. Review of systems: GEN.: Tired EYES: None HEENT: None NECK: None RESPIRATORY: As above] CARDIOVASCULAR: None GASTROINTESTINAL: None GENITOURINARY: None MUSCULOSKELETAL: Joint pains LYMPHATICS: None HEMATOLOGICAL: None PSYCHIATRY: None NEUROLOGICAL: None Past medical history to include: GERD, hyperlipidemia, hypertension, rheumatoid arthritis, head neck and throat cancer resolved in 1999 and radiation treatment, prostate disorder, carotid stent, coronary artery disease with stent Social history: Does not smoke or drink alcohol. . Retired from [employer] Physical examination: VITAL SIGNS: BMI 97.7, 85, 18, 140/101, 97% on room air GENERAL: BMI 24, sitting up, not in distress. EYES: Pupils equal. Conjunctiva normal. HEENT: External appearance of nose and ears normal, oral cavity grossly normal. NECK: JVD not raised; masses not palpable. HEART: First and second heart sounds are normal; no edema. LUNGS: Respiratory rate increased, decreased breath sound expiratory coarse crackles. ABDOMEN: Soft, nontender, liver spleen not palpable, no masses palpable. PSYCH: Alert and oriented x3; mood and affect normal. NEUROLOGICAL: Cranial nerves grossly intact; no facial asymmetry, power and sensation grossly intact. LYMPHATICS: No lymph nodes palpable in the axilla and neck Investigations: White count 15.5 hemoglobin 14 platelets 456 potassium 4.8 bun 34 creatinine 1.04 ProBNP 423 troponin I negative Influenza A and B both negative Chest x-ray film personally reviewed by me-some scanty infiltrate EKG tracing personally reviewed by me-normal sinus rhythm Assessment: -This is a patient with 2 weeks of respiratory symptoms including cough congestion clear sputum no fever or chills. Has received antibiotic steroids as an outpatient. No fevers. Appetite is good. Patient most likely is had a viral pneumonitis. Patient still congested in the chest. Clear sputum. Antibiotics may be of little benefit. Often times this can on a course of 4-5 weeks. -GERD -Essential hypertension -Hyperlipidemia -Coronary artery disease with stent -Rheumatoid arthritis Plan: Patient be started on bronchodilators, IV and inhaled steroids. Add Mucinex 1200 mg twice a day. Also has some Claritin-D. Other home medications resumed. Lovenox for DVT prophylaxis. Care was discussed with the patient question were answered. Past Medical History Past Medical History: GERD/Reflux, Hyperlipidemia, Hypertension, Myocardial Infarction ([place]), Prostate Disorder, Rheumatoid Arthritis (RA) Additional Past Medical History / Comment(s): Cancer of head, neck, throat- resolved, had in 1999 did receive radiation, hypotension (BP fluctuates a lot), Last Myocardial Infarction Date:: 10-29-01 History of Any Multi-Drug Resistant Organisms: None Reported Past Surgical History: Heart Catheterization With Stent Additional Past Surgical History / Comment(s): had a carotid stent placed during CA treatment. 42 lymph nodes removed. Date of Last Stent Placement:: 10-29-01 Past Psychological History: No Psychological Hx Reported Smoking Status: Never smoker Past Alcohol Use History: None Reported Past Drug Use History: None Reported - Past Family History Father Additional Family Medical History / Comment(s): heart disease Mother Additional Family Medical History / Comment(s): heart disease Medications and Allergies Home Medications Medication Instructions Recorded Confirmed Type Omeprazole 20 mg PO DAILY 08/26/18 12/23/19 History Pravastatin Sodium [Pravachol] 40 mg PO DAILY 08/26/18 12/23/19 History Albuterol Nebulized [Ventolin 2.5 mg INHALATION RT-TID PRN 12/23/19 12/23/19 History Nebulized] Carvedilol [Coreg] 3.125 mg PO BID 12/23/19 12/23/19 History Gas Relief 1 tab PO DAILY PRN 12/23/19 12/23/19 History HYDROcodone/APAP 5-325MG [[place] 1 tab PO BID PRN 12/23/19 12/23/19 History 5-325] Levofloxacin [Levaquin] 500 mg PO DAILY 12/23/19 12/23/19 History Midodrine HCl [ProAmantine] 2.5 mg PO TID 12/23/19 12/23/19 History Naproxen 500 mg PO BID PRN 12/23/19 12/23/19 History Renew Life 1 tab PO DAILY 12/23/19 12/23/19 History Tamsulosin HCl [Flomax] 0.4 mg PO BID 12/23/19 12/23/19 History amLODIPine [Norvasc] 2.5 mg PO DAILY 12/23/19 12/23/19 History predniSONE See Taper PO DAILY 12/23/19 12/23/19 History Allergies Allergy/AdvReac Type Severity Reaction Status Date / Time morphine AdvReac Confusion Verified 12/23/19 14:12 Physical Exam Vitals: Vital Signs Temp Pulse Pulse Resp BP BP Pulse Ox 12/23/19 19:13 80 12/23/19 18:59 78 12/23/19 15:00 98.4 F 72 16 136/56 94 L 12/23/19 14:09 95/68 12/23/19 13:26 89 16 141/95 98 12/23/19 11:35 93 12/23/19 11:14 91 12/23/19 10:50 18 12/23/19 10:46 89 18 140/101 97 12/23/19 10:06 97.7 F 85 18 95/63 96 Intake and Output 12/23/19 12/23/19 12/23/19 06:59 14:59 22:59 Intake Total 220 Balance 220 Intake: Oral 220 Other: Weight 69.4 kg Results CBC & Chem 7: 12/23/19 10:55 12/23/19 10:55 Labs: Abnormal Lab Results - Last 24 Hours (Table) 12/23/19 12/23/19 12/23/19 Range/Units 10:55 10:55 16:29 WBC 15.5 H (3.8-10.6) k/uL Plt Count 456 H (150-450) k/uL Neutrophils # 14.4 H (1.3-7.7) k/uL Lymphocytes # 0.7 L (1.0-4.8) k/uL Sodium 134 L (137-145) mmol/L Carbon Dioxide 21 L (22-30) mmol/L BUN 34 H (9-20) mg/dL Glucose 143 H (74-99) mg/dL POC Glucose (mg/dL) 158 H (75-99) mg/dL 12/23/19 Range/Units 20:03 WBC (3.8-10.6) k/uL Plt Count (150-450) k/uL Neutrophils # (1.3-7.7) k/uL Lymphocytes # (1.0-4.8) k/uL Sodium (137-145) mmol/L Carbon Dioxide (22-30) mmol/L BUN (9-20) mg/dL Glucose (74-99) mg/dL POC Glucose (mg/dL) 148 H (75-99) mg/dL Thrombosis Risk Factor Assmnt - Choose All That Apply Any of the Below Risk Factors Present?: Yes Each Factor Represents 1 point: Serious lung disease incl. pneumonia (< 1month) Each Risk Factor Represents 3 Points: Age 75 years or older Other congenital or acquired thrombophilia - If yes, enter type in comment: No Thrombosis Risk Factor Assessment Total Risk Factor Score: 4 Thrombosis Risk Factor Assessment Level: Moderate Risk
[2019-12-23] MEDS: LORATADINE-PSEUDOEPH 5-120 MG 1 EACH TAB.ER.12H PO SCH (21:44)
[2019-12-23] MEDS: guaiFENesin 600 MG TABLET.ER PO SCH (22:09)
[2019-12-23] MEDS: methylPREDNISolone SOD SUCCI 40 MG/ML 1 ML VIAL IV SCH (23:17)
[2019-12-24 06:49] LABS: Glucose,Whole Blood 182 mg/dL (75-99)
[2019-12-24] MEDS: BUDESONIDE 1 MG/2 ML NEBU INHALATION SCH ×2 (07:19→19:20)
[2019-12-24] MEDS: IPRATROPIUM-ALBUTEROL 3 ML NEB INHALATION SCH ×4 (07:19→19:20)
[2019-12-24] MEDS: CARVEDILOL 12.5 MG TAB PO SCH ×2 (07:35→16:44)
[2019-12-24] MEDS: amLODIPine 10 MG TAB PO SCH (07:35)
[2019-12-24] MEDS: AZITHROMYCIN 500 MG TAB PO SCH (07:35)
[2019-12-24] MEDS: methylPREDNISolone SOD SUCCI 40 MG/ML 1 ML VIAL IV SCH (07:36)
[2019-12-24] MEDS: MIDODRINE 5 MG TAB PO SCH ×3 (07:36→21:00)
[2019-12-24] MEDS: guaiFENesin 600 MG TABLET.ER PO SCH ×2 (07:36→21:00)
[2019-12-24] MEDS: PRAVASTATIN SODIUM 40 MG TAB PO SCH (07:36)
[2019-12-24] MEDS: LORATADINE-PSEUDOEPH 5-120 MG 1 EACH TAB.ER.12H PO SCH ×2 (07:36→21:00)
[2019-12-24] MEDS: ENOXAPARIN 40 MG/0.4 ML SYRINGE SQ SCH (07:36)
[2019-12-24] MEDS: INSULIN ASPART (NovoLOG) 100 UNIT/ML VIAL SQ SCH ×4 (07:37→21:00)
[2019-12-24 11:41] LABS: Glucose,Whole Blood 155 mg/dL (75-99)
--- NOTE | 2019-12-24 12:08 | P.PN ---
Subjective Progress Note Date: 12/24/19 Principal diagnosis: Acute tracheobronchitis and reactive bronchospasm. This is a 74-year-old white male with history of throat cancer, diagnosed and treated over 20 years ago. Patient had surgery done at the [facility]. He never smoked. Patient is known to have history of hypertension, GERD, hypercholesterolemia, presented to his primary care physician recently with 3 weeks history of cough and wheezing. Cough is described as productive with whitish phlegm. But mostly the wheezing has been persistent. Patient denies any specific exposure. Denies any previous history of COPD or asthmatic bronchitis or bronchial asthma. Denies any active GERD symptoms. Patient was given by his primary care physician a course of antibiotics and steroids burst and taper. However has not been making much improvement. Hence the patient was sent to the ER. Chest x-ray showed no evidence of active disease. There was a questionable left lung nodule but seems to be more of a nipple shadow. His CBC showed leukocytosis with WBC count of 15.5. Hemoglobin 14.0. Electrolytes were normal. Liver profile was normal. Lactic acid was normal. Influenza screen was negative. Patient was admitted, and this consult was initiated. Reevaluated today on 12/24/2019, patient is about the same. Continues to cough and wheeze. Cough is productive with whitish phlegm, denies any fever no chills no hemoptysis no chest pain. Patient feels chest tightness mostly. Patient r emains on antibiotics, steroids, bronchodilators, minimal improvement if any. Hence I discussed with the patient that if he continues to do the same over the next 24 hours, we will likely arrange for bronchoscopy and airways evaluation early Sunday. Objective - Vital Signs Vital signs: Vital Signs Temp 97.4 F L 12/24/19 04:30 Pulse 76 12/24/19 10:55 Resp 20 12/24/19 04:30 BP 150/89 12/24/19 04:30 Pulse Ox 98 12/24/19 04:30 Intake & Output 12/23/19 12/24/19 12/24/19 18:59 06:59 18:59 Intake Total 220 400 390 Balance 220 400 390 Weight 69.4 kg Intake: Oral 220 400 390 Other: Voiding Method Toilet # Voids 1 2 - Exam Physical Exam: Revealed a 74-year-old white male in no distress. Head: Atraumatic, normocephalic. HEENT:[Neck is supple.] [No neck masses.] [No thyromegaly.] [No JVD.] Postsurgical changes noted in the neck area on the right side. Chest: [Symmetrical chest expansion, diffuse rhonchi and wheezes noted bilatera lly more so on forced expiratory maneuver. Cardiac Exam: [Normal S1 and S2, no S3 gallop, no murmur.] Abdomen: [Soft, nontender, no megaly, no rebound, no guarding, normal bowel sounds.] Extremities: [No clubbing, no edema, no cyanosis.] Neurological Exam: [No focal neurologic deficit.] Psychiatric: Normal mood, affect and normal mental status examination. Skin: No rashes. - Labs CBC & Chem 7: 12/23/19 10:55 12/23/19 10:55 Labs: Abnormal Lab Results - Last 24 Hours (Table) 12/23/19 12/23/19 12/24/19 Range/Units 16:29 20:03 06:47 POC Glucose (mg/dL) 158 H 148 H 182 H (75-99) mg/dL 12/24/19 Range/Units 11:39 POC Glucose (mg/dL) 155 H (75-99) mg/dL Assessment and Plan Assessment: Impression: Acute tracheobronchitis and reactive bronchospasm. Failed outpatient therapy. History of head and neck cancer, diagnosed and treated over 20 years ago. Benign essential hypertension History of coronary artery disease and previous [place], previous stent placement. Dyslipidemia. Recommendation: Continue antibiotics, bronchodilators, steroids. Consider bronchoscopy if the patient does not improve in the next 24 hours.. Resume home meds . Not ready for any discharge planning at this point, Will likely consider bronchoscopy next Sunday. Time with Patient: Less than 30
[2019-12-24] MEDS: methylPREDNISolone SOD SUCCI 125 MG/2 ML VIAL IV SCH ×2 (16:44→23:34)
[2019-12-24 16:47] LABS: Glucose,Whole Blood 95 mg/dL (75-99)
[2019-12-24 19:57] LABS: Glucose,Whole Blood 172 mg/dL (75-99)
--- NOTE | 2019-12-24 20:38 | P.PN ---
Progress Note - Text Progress Note Date: 12/24/19 Chief Complaint: Congested cough History of presenting complaint: This is a very pleasant [address] HUNT. Chronic stable medical conditions include GERD, hypertension, hyperlipidemia, coronary artery distended, rheumatoid arthritis. Patient also had a history of head and neck cancer back in 1999 treated with radiation treatment. Patient for 2 weeks has been struggling with wheezing shortness of breath cough congestion and clear sputum. Has a course of antibiotic steroids by his family doctor. Not much improvement. Because of steroids appetite is actually rather good. Significant congested still hence admitted for the same. No muscle achiness. Admitted with bilateral pneumonitis and secondary bronchospasm. Today-feeling a bit better. Some patchiness in the chest. Sitting up in a chair. Did tolerate some breakfast. She'll bit congested. Review of systems: Was done for constitutional, cardiovascular, GI, pulmonary. relevant finding as above Active Medications Albuterol/Ipratropium (Duoneb 0.5 Mg-3 Mg/3 Ml Soln) 3 ml INHALATION RT-QID [facility] Last Admin: 12/24/19 19:20 Dose: 3 ml Documented by: Amlodipine Besylate (Norvasc) 10 mg PO DAILY [facility] Last Admin: 12/24/19 07:35 Dose: 10 mg Documented by: Azithromycin (Zithromax) 500 mg PO DAILY [facility] Last Admin: 12/24/19 07:35 Dose: 500 mg Documented by: Budesonide (Pulmicort) 1 mg INHALATION RT-BID [facility] Last Admin: 12/24/19 19:20 Dose: 1 mg Documented by: Carvedilol (Coreg) 12.5 mg PO BID-W/MEALS [facility] Last Admin: 12/24/19 16:44 Dose: 12.5 mg Documented by: Enoxaparin Sodium (Lovenox) 40 mg SQ DAILY [facility] Last Admin: 12/24/19 07:36 Dose: 40 mg Documented by: Guaifenesin (Mucinex) 1,200 mg PO Q12HR [facility] Last Admin: 12/24/19 07:36 Dose: 1,200 mg Documented by: Ceftriaxone Sodium 1 gm/ (Sodium Chloride) 50 mls @ 100 mls/hr IVPB Q24HR [facility] Last Admin: 12/24/19 07:36 Dose: 100 mls/hr Documented by: Insulin Aspart (Novolog) 0 unit SQ ACHS [facility]; Protocol Last Admin: 12/24/19 16:45 Dose: Not Given Documented by: Loratadine/Pseudoephedrine Sulfate (Claritin-D 12 Hr) 1 each PO Q12HR [facility] Last Admin: 12/24/19 07:36 Dose: 1 each Documented by: Methylprednisolone Sodium Succinate (Solu-Medrol) 60 mg IV Q6HR [facility] Last Admin: 12/24/19 16:44 Dose: 60 mg Documented by: Midodrine (Proamatine) 5 mg PO TID [facility] Last Admin: 12/24/19 15:00 Dose: 5 mg Documented by: Pravastatin Sodium (Pravachol) 40 mg PO DAILY [facility] Last Admin: 12/24/19 07:36 Dose: 40 mg Documented by: Physical examination: VITAL SIGNS: 97.4, 93, 20, 150/89, 98% on 2 L GENERAL: Sitting on a chair, breathing a bit better EYES: Pupils equal. Conjunctiva normal. HEENT: External appearance of nose and ears normal, oral cavity grossly normal. NECK: JVD not raised; masses not palpable. HEART: First and second heart sounds are normal; no edema. LUNGS: Respiratory rate increased, decreased breath sound less crackles. ABDOMEN: Soft, nontender, liver spleen not palpable, no masses palpable. PSYCH: Alert and oriented x3; mood and affect normal. Investigations: White count 15.5 hemoglobin 14 platelets 456 potassium 4.8 bun 34 creatinine 1.04 ProBNP 423 troponin I negative Influenza A and B both negative Chest x-ray film personally reviewed by me-some scanty infiltrate EKG tracing personally reviewed by me-normal sinus rhythm Assessment: -This is a patient with 2 weeks of respiratory symptoms including cough congestion clear sputum no fever or chills. Has received antibiotic steroids as an outpatient. No fevers. Appetite is good. Patient most likely is had a viral pneumonitis. Patient still congested in the chest. Clear sputum. Antibiotics may be of little benefit. Often times this can on a course of 4-5 weeks. -GERD -Essential hypertension -Hyperlipidemia -Coronary artery disease with stent -Rheumatoid arthritis Plan: Continue current medication treatment plan. We'll make the oxygen humidified. Told the patient chooses respiratory spirometer. Continue with bronchodilator steroids antibiotics. Discussed with the patient
[2019-12-25] MEDS: methylPREDNISolone SOD SUCCI 125 MG/2 ML VIAL IV SCH ×4 (05:43→23:24)
[2019-12-25 07:23] LABS: Glucose,Whole Blood 157 mg/dL (75-99)
[2019-12-25] MEDS: ENOXAPARIN 40 MG/0.4 ML SYRINGE SQ SCH (07:48)
[2019-12-25] MEDS: guaiFENesin 600 MG TABLET.ER PO SCH ×2 (07:48→20:43)
[2019-12-25] MEDS: amLODIPine 10 MG TAB PO SCH (07:48)
[2019-12-25] MEDS: PRAVASTATIN SODIUM 40 MG TAB PO SCH (07:48)
[2019-12-25] MEDS: MIDODRINE 5 MG TAB PO SCH ×3 (07:49→20:43)
[2019-12-25] MEDS: CARVEDILOL 12.5 MG TAB PO SCH ×2 (07:49→16:29)
[2019-12-25] MEDS: AZITHROMYCIN 500 MG TAB PO SCH (07:49)
[2019-12-25] MEDS: INSULIN ASPART (NovoLOG) 100 UNIT/ML VIAL SQ SCH ×4 (07:49→21:14)
[2019-12-25] MEDS: LORATADINE-PSEUDOEPH 5-120 MG 1 EACH TAB.ER.12H PO SCH ×2 (07:50→20:41)
[2019-12-25] MEDS: IPRATROPIUM-ALBUTEROL 3 ML NEB INHALATION SCH ×4 (08:06→20:25)
[2019-12-25] MEDS: BUDESONIDE 1 MG/2 ML NEBU INHALATION SCH ×2 (08:06→20:25)
[2019-12-25 11:50] LABS: Glucose,Whole Blood 163 mg/dL (75-99)
--- NOTE | 2019-12-25 13:27 | P.PN ---
Subjective Progress Note Date: 12/25/19 Principal diagnosis: Acute tracheobronchitis and reactive bronchospasm. This is a 74-year-old white male with history of throat cancer, diagnosed and treated over 20 years ago. Patient had surgery done at the [facility]. He never smoked. Patient is known to have history of hypertension, GERD, hypercholesterolemia, presented to his primary care physician recently with 3 weeks history of cough and wheezing. Cough is described as productive with whitish phlegm. But mostly the wheezing has been persistent. Patient denies any specific exposure. Denies any previous history of COPD or asthmatic bronchitis or bronchial asthma. Denies any active GERD symptoms. Patient was given by his primary care physician a course of antibiotics and steroids burst and taper. However has not been making much improvement. Hence the patient was sent to the ER. Chest x-ray showed no evidence of active disease. There was a questionable left lung nodule but seems to be more of a nipple shadow. His CBC showed leukocytosis with WBC count of 15.5. Hemoglobin 14.0. Electrolytes were normal. Liver profile was normal. Lactic acid was normal. Influenza screen was negative. Patient was admitted, and this consult was initiated. Reevaluated today on 12/24/2019, patient is about the same. Continues to cough and wheeze. Cough is productive with whitish phlegm, denies any fever no chills no hemoptysis no chest pain. Patient feels chest tightness mostly. Patient r emains on antibiotics, steroids, bronchodilators, minimal improvement if any. Hence I discussed with the patient that if he continues to do the same over the next 24 hours, we will likely arrange for bronchoscopy and airways evaluation early Sunday. Patient was reevaluated today on 12/25/2019, slight improvement, nonetheless, the patient continues to have cough and wheezing. On physical examination definite wheezing bilaterally. Patient is slightly improved with steroids and bronchodilators, and I will go ahead and recommended bronchoscopy and evaluation of his airways. In the meantime I will recommend a jean-baptiste CT of the chest. Objective - Vital Signs Vital signs: Vital Signs Temp 97.7 F 12/25/19 05:16 Pulse 84 12/25/19 11:57 Resp 20 12/25/19 08:00 BP 103/65 12/25/19 05:16 Pulse Ox 95 12/25/19 05:16 Intake & Output 02/12/25/19 12/25/19 18:59 06:59 18:59 Intake Total 390 600 Balance 390 600 Intake: Oral 390 600 Other: Voiding Method Toilet Toilet Toilet # Voids 2 1 - Exam Physical Exam: Revealed a 74-year-old white male in no distress. Head: Atraumatic, normocephalic. HEENT:[Neck is supple.] [No neck masses.] [No thyromegaly.] [No JVD.] Postsurgical changes noted in the neck area on the right side. Chest: [Symmetrical chest expansion, rhonchi and wheezes persist bilaterally. Cardiac Exam: [Normal S1 and S2, no S3 gallop, no murmur.] Abdomen: [Soft, nontender, no megaly, no rebound, no guarding, normal bowel sounds.] Extremities: [No clubbing, no edema, no cyanosis.] Neurological Exam: [No focal neurologic deficit.] Psychiatric: Normal mood, affect and normal mental status examination. Skin: No rashes. - Labs CBC & Chem 7: 12/23/19 10:55 12/23/19 10:55 Labs: Abnormal Lab Results - Last 24 Hours (Table) 12/24/19 12/25/19 12/25/19 Range/Units 19:53 07:08 11:44 POC Glucose (mg/dL) 172 H 157 H 163 H (75-99) mg/dL Microbiology - Last 24 Hours (Table) 12/23/19 10:55 Blood Culture - Preliminary Blood No Growth after 48 hours Assessment and Plan Assessment: Impression: Acute tracheobronchitis and reactive bronchospasm. Failed outpatient therapy. History of head and neck cancer, diagnosed and treated over 20 years ago. Benign essential hypertension History of coronary artery disease and previous [place], previous stent placement. Dyslipidemia. Recommendation: Continue antibiotics, bronchodilators, steroids. Arrange for a high-resolution CT of the chest today. Patient was made aware that he is improved a bit, but not as much as expected, hence he is agreeable to proceed with bronchoscopy and airways evaluation tomorrow. If the patient makes a significant improvement in the next 24 hours, then we'll cancel bronchoscopy. Time with Patient: Less than 30
[2019-12-25 17:08] LABS: Glucose,Whole Blood 209 mg/dL (75-99)
[2019-12-25 21:11] LABS: Glucose,Whole Blood 149 mg/dL (75-99)
--- NOTE | 2019-12-25 23:01 | P.PN ---
Progress Note - Text Progress Note Date: 12/25/19 Chief Complaint: Congested cough History of presenting complaint: This is a very pleasant [address] HUNT. Chronic stable medical conditions include GERD, hypertension, hyperlipidemia, coronary artery disease, rheumatoid arthritis. Patient also had a history of head and neck cancer back in 1999 treated with radiation treatment. Patient for 2 weeks has been struggling with wheezing shortness of breath cough congestion and clear sputum. Has a course of antibiotic steroids by his family doctor. Not much improvement. Because of steroids appetite is actually rather good. Significant congested still hence admitted for the same. No muscle achiness. Admitted with bilateral pneumonitis and secondary bronchospasm. Today-still rather congested. Sitting up, short of breath. Did tolerate some diet. Review of systems: Was done for constitutional, cardiovascular, GI, pulmonary. relevant finding as above Active Medications Albuterol/Ipratropium (Duoneb 0.5 Mg-3 Mg/3 Ml Soln) 3 ml INHALATION RT-QID [facility] Last Admin: 12/25/19 20:25 Dose: 3 ml Documented by: Amlodipine Besylate (Norvasc) 10 mg PO DAILY [facility] Last Admin: 12/25/19 07:48 Dose: 10 mg Documented by: Azithromycin (Zithromax) 500 mg PO DAILY [facility] Last Admin: 12/25/19 07:49 Dose: 500 mg Documented by: Budesonide (Pulmicort) 1 mg INHALATION RT-BID [facility] Last Admin: 12/25/19 20:25 Dose: 1 mg Documented by: Carvedilol (Coreg) 12.5 mg PO BID-W/MEALS [facility] Last Admin: 12/25/19 16:29 Dose: 12.5 mg Documented by: Enoxaparin Sodium (Lovenox) 40 mg SQ DAILY [facility] Last Admin: 12/25/19 07:48 Dose: Not Given Documented by: Guaifenesin (Mucinex) 1,200 mg PO Q12HR [facility] Last Admin: 12/25/19 20:43 Dose: 1,200 mg Documented by: Ceftriaxone Sodium 1 gm/ (Sodium Chloride) 50 mls @ 100 mls/hr IVPB Q24HR [facility] Last Admin: 12/25/19 07:47 Dose: 100 mls/hr Documented by: Insulin Aspart (Novolog) 0 unit SQ ACHS [facility]; Protocol Last Admin: 12/25/19 21:14 Dose: 2 unit Documented by: Loratadine/Pseudoephedrine Sulfate (Claritin-D 12 Hr) 1 each PO Q12HR [facility] Last Admin: 12/25/19 20:41 Dose: Not Given Documented by: Methylprednisolone Sodium Succinate (Solu-Medrol) 60 mg IV Q6HR [facility] Last Admin: 12/25/19 17:10 Dose: 60 mg Documented by: Midodrine (Proamatine) 5 mg PO TID [facility] Last Admin: 12/25/19 20:43 Dose: 5 mg Documented by: Pantoprazole Sodium (Protonix) 40 mg PO AC-BRKFST [facility] Pravastatin Sodium (Pravachol) 40 mg PO DAILY [facility] Last Admin: 12/25/19 07:48 Dose: 40 mg Documented by: Physical examination: VITAL SIGNS: 97, 84, 20, 103/69, 97% on room air GENERAL: Sitting on a chair, congested chest EYES: Pupils equal. Conjunctiva normal. HEENT: External appearance of nose and ears normal, oral cavity grossly normal. NECK: JVD not raised; masses not palpable. HEART: First and second heart sounds are normal; no edema. LUNGS: Respiratory rate increased, decreased breath sound crackles still present. ABDOMEN: Soft, nontender, liver spleen not palpable, no masses palpable. PSYCH: Alert and oriented x3; mood and affect normal. Investigations: White count 15.5 hemoglobin 14 platelets 456 potassium 4.8 bun 34 creatinine 1.04 ProBNP 423 troponin I negative Influenza A and B both negative Chest x-ray film personally reviewed by me-some scanty infiltrate EKG tracing personally reviewed by me-normal sinus rhythm Assessment: -Probable viral pneumonitis was still significant chest congestion. Slow to respond.. -GERD -Essential hypertension -Hyperlipidemia -Coronary artery disease with stent -Rheumatoid arthritis Plan: Discussed with patient. Agree with pulmonary with proceeding with bronchoscopy with lavage. Other medications including steroids to continue.
[2019-12-26] MEDS: methylPREDNISolone SOD SUCCI 125 MG/2 ML VIAL IV SCH ×3 (05:11→17:10)
[2019-12-26] MEDS: INSULIN ASPART (NovoLOG) 100 UNIT/ML VIAL SQ SCH ×4 (07:05→20:45)
[2019-12-26] MEDS: ENOXAPARIN 40 MG/0.4 ML SYRINGE SQ SCH (07:08)
[2019-12-26 07:17] LABS: Glucose,Whole Blood 167 mg/dL (75-99)
[2019-12-26] MEDS: LORATADINE-PSEUDOEPH 5-120 MG 1 EACH TAB.ER.12H PO SCH ×2 (07:45→20:29)
[2019-12-26] MEDS: guaiFENesin 600 MG TABLET.ER PO SCH ×2 (07:48→20:35)
[2019-12-26] MEDS: MIDODRINE 5 MG TAB PO SCH ×3 (07:49→20:35)
[2019-12-26] MEDS: AZITHROMYCIN 500 MG TAB PO SCH (07:49)
[2019-12-26] MEDS: amLODIPine 10 MG TAB PO SCH (07:49)
[2019-12-26] MEDS: PANTOPRAZOLE 40 MG TABLET PO SCH (07:50)
[2019-12-26] MEDS: PRAVASTATIN SODIUM 40 MG TAB PO SCH (07:50)
[2019-12-26] MEDS: CARVEDILOL 12.5 MG TAB PO SCH ×2 (07:50→16:04)
[2019-12-26] MEDS: BUDESONIDE 1 MG/2 ML NEBU INHALATION SCH ×2 (08:45→20:14)
[2019-12-26] MEDS: IPRATROPIUM-ALBUTEROL 3 ML NEB INHALATION SCH ×4 (08:45→20:14)
[2019-12-26 11:11] LABS: Glucose,Whole Blood 154 mg/dL (75-99)
--- NOTE | 2019-12-26 11:56 | P.PN ---
Subjective Progress Note Date: 12/26/19 Principal diagnosis: Acute tracheobronchitis and reactive bronchospasm This is a 74-year-old white male with history of throat cancer, diagnosed and treated over 20 years ago. Patient had surgery done at the [facility]. He never smoked. Patient is known to have history of hypertension, GERD, hypercholesterolemia, presented to his primary care physician recently with 3 weeks history of cough and wheezing. Cough is described as productive with whitish phlegm. But mostly the wheezing has been persistent. Patient denies any specific exposure. Denies any previous history of COPD or asthmatic bronchitis or bronchial asthma. Denies any active GERD symptoms. Patient was given by his primary care physician a course of antibiotics and steroids burst and taper. However has not been making much improvement. Hence the patient was sent to the ER. Chest x-ray showed no evidence of active disease. There was a questionable left lung nodule but seems to be more of a nipple shadow. His CBC showed leukocytosis with WBC count of 15.5. Hemoglobin 14.0. Electrolytes were normal. Liver profile was normal. Lactic acid was normal. Influenza screen was negative. Patient was admitted, and this consult was initiated. Reevaluated today on 12/24/2019, patient is about the same. Continues to cough and wheeze. Cough is productive with whitish phlegm, denies any fever no chills no hemoptysis no chest pain. Patient feels chest tightness mostly. Patient r emains on antibiotics, steroids, bronchodilators, minimal improvement if any. Hence I discussed with the patient that if he continues to do the same over the next 24 hours, we will likely arrange for bronchoscopy and airways evaluation early Sunday. Patient was reevaluated today on 12/25/2019, slight improvement, nonetheless, the patient continues to have cough and wheezing. On physical examination definite wheezing bilaterally. Patient is slightly improved with steroids and bronchodilators, and I will go ahead and recommended bronchoscopy and evaluation of his airways. In the meantime I will recommend a jean-baptiste CT of the chest. The patient is seen today 12/26/2019 in follow-up on the regular medical floor. He is currently awake and alert in no acute distress. Breathing a bit easier t nehemias compared to yesterday. Not quite back to his baseline. Maintaining O2 saturations in the 90s on room air. He's afebrile. Hemodynamically stable. Blood culture reveals no growth. Blood glucose 154. He is continued on bronchodilators, Solu-Medrol, Mucinex, Claritin, ceftriaxone and azithromycin. Objective - Vital Signs Vital signs: Vital Signs Temp 98.0 F 12/26/19 05:20 Pulse 86 12/26/19 10:14 Resp 18 12/26/19 08:25 BP 115/76 12/26/19 10:14 Pulse Ox 97 12/26/19 08:47 Intake & Output 12/25/19 12/26/19 12/26/19 18:59 06:59 18:59 Other: Voiding Method Toilet Toilet Toilet # Voids 2 2 - Exam GENERAL EXAM: Alert, pleasant 74-year-old gentleman, on room air, comfortable in no apparent distress. HEAD: Normocephalic. EYES: Normal reaction of pupils, equal size. NOSE: Clear with pink turbinates. THROAT: No erythema or exudates. NECK: No masses, no JVD. CHEST: No chest wall deformity. LUNGS: Equal air entry with few scattered rhonchi bilaterally CVS: S1 and S2 normal with no audible murmur, regular rhythm. ABDOMEN: No hepatosplenomegaly, normal bowel sounds, no guarding or rigidity. SPINE: No scoliosis or deformity SKIN: No rashes CENTRAL NERVOUS SYSTEM: No focal deficits, tone is normal in all 4 extremities. EXTREMITIES: There is no peripheral edema. No clubbing, no cyanosis. Peripheral pulses are intact. - Labs CBC & Chem 7: 12/23/19 10:55 12/23/19 10:55 Labs: Abnormal Lab Results - Last 24 Hours (Table) 12/25/19 12/25/19 12/26/19 Range/Units 17:06 21:08 07:15 POC Glucose (mg/dL) 209 H 149 H 167 H (75-99) mg/dL 12/26/19 Range/Units 11:09 POC Glucose (mg/dL) 154 H (75-99) mg/dL Microbiology - Last 24 Hours (Table) 12/23/19 10:55 Blood Culture - Preliminary Blood No Growth after 48 hours Assessment and Plan Assessment: Acute tracheobronchitis and reactive bronchospasm. Failed outpatient therapy. History of head and neck cancer, diagnosed and treated over 20 years ago. Benign essential hypertension History of coronary artery disease and previous [place], previous stent placement. Dyslipidemia. Plan: The patient was seen and evaluated by Dr. Liz. Plan is for bronchoscopy with BAL today. Continue the current medications. We'll continue to follow. I, the cosigning physician, performed a history & physical examination of the patient. Lungs sounds with bilateral scattered rhonchi. Maintaining good O2 saturations in the 90s on room air. I discussed the assessment and plan of care with my nurse practitioner, Suha Wiseman. I attest to the above note as dictated by her.
[2019-12-26] MEDS ORDERED: SODIUM CHLORIDE 0.9% 500 ML 500 ML IV ONE (14:55)
[2019-12-26] MEDS ORDERED: PROPOFOL 10 MG/ML 20 ML VIAL IV ONE (14:55)
[2019-12-26] MEDS ORDERED: LIDOCAINE 1% INJ 10MG/ML (20 ML MDV) ONE (14:55)
[2019-12-26] MEDS ORDERED: LIDOCAINE 2% INJ 20 MG/ML INTRATRACH ONE ×2 (14:59→15:06)
[2019-12-26 16:38] LABS: Appearance,BF Cloudy; Color,BF Colorless; Nucleated Cells, Body Fluid 7710 /uL; RBC, Body Fluid 425 /uL
[2019-12-26 16:50] LABS: Polynuclear WBC,Body Fluid 100 %; Total Cells Counted,Body Fluid 100
[2019-12-26 16:58] LABS: Glucose,Whole Blood 189 mg/dL (75-99)
[2019-12-26] MEDS: ALPRAZolam 0.25 MG TAB PO PRN (17:50)
--- NOTE | 2019-12-26 17:50 | P.PN ---
Progress Note - Text Progress Note Date: 12/26/19 Chief Complaint: Congested cough History of presenting complaint: This is a very pleasant [address] HUNT. Chronic stable medical conditions include GERD, hypertension, hyperlipidemia, coronary artery disease, rheumatoid arthritis. Patient also had a history of head and neck cancer back in 1999 treated with radiation treatment. Patient for 2 weeks has been struggling with wheezing shortness of breath cough congestion and clear sputum. Has a course of antibiotic steroids by his family doctor. Not much improvement. Because of steroids appetite is actually rather good. Significant congested still hence admitted for the same. No muscle achiness. Admitted with bilateral pneumonitis and secondary bronchospasm. Today-continues to be congested in the chest. 2 still bit better than since admission. Due for bronchoscopy with lavage this afternoon. and daughter the bedside.. Review of systems: Was done for constitutional, cardiovascular, GI, pulmonary. relevant finding as above Active Medications Albuterol/Ipratropium (Duoneb 0.5 Mg-3 Mg/3 Ml Soln) 3 ml INHALATION RT-QID [facility] Last Admin: 12/26/19 16:05 Dose: 3 ml Documented by: Alprazolam (Xanax) 0.25 mg PO TID PRN PRN Reason: Anxiety Amlodipine Besylate (Norvasc) 10 mg PO DAILY [facility] Last Admin: 12/26/19 07:49 Dose: 10 mg Documented by: Azithromycin (Zithromax) 500 mg PO DAILY [facility] Last Admin: 12/26/19 07:49 Dose: 500 mg Documented by: Budesonide (Pulmicort) 1 mg INHALATION RT-BID [facility] Last Admin: 12/26/19 08:45 Dose: 1 mg Documented by: Carvedilol (Coreg) 12.5 mg PO BID-W/MEALS [facility] Last Admin: 12/26/19 16:04 Dose: 12.5 mg Documented by: Enoxaparin Sodium (Lovenox) 40 mg SQ DAILY [facility] Last Admin: 12/26/19 07:08 Dose: Not Given Documented by: Guaifenesin (Mucinex) 1,200 mg PO Q12HR [facility] Last Admin: 12/26/19 07:48 Dose: 1,200 mg Documented by: Ceftriaxone Sodium 1 gm/ (Sodium Chloride) 50 mls @ 100 mls/hr IVPB Q24HR [facility] Last Admin: 12/26/19 07:23 Dose: 100 mls/hr Documented by: Insulin Aspart (Novolog) 0 unit SQ ACHS [facility]; Protocol Last Admin: 12/26/19 17:11 Dose: 5 unit Documented by: Loratadine/Pseudoephedrine Sulfate (Claritin-D 12 Hr) 1 each PO Q12HR [facility] Last Admin: 12/26/19 07:45 Dose: Not Given Documented by: Methylprednisolone Sodium Succinate (Solu-Medrol) 60 mg IV Q6HR [facility] Last Admin: 12/26/19 17:10 Dose: 60 mg Documented by: Midodrine (Proamatine) 5 mg PO TID [facility] Last Admin: 12/26/19 16:04 Dose: 5 mg Documented by: Pantoprazole Sodium (Protonix) 40 mg PO AC-BRKFST [facility] Last Admin: 12/26/19 07:50 Dose: 40 mg Documented by: Pravastatin Sodium (Pravachol) 40 mg PO DAILY [facility] Last Admin: 12/26/19 07:50 Dose: 40 mg Documented by: Physical examination: VITAL SIGNS: GENERAL: Sitting on a chair, congested chest EYES: Pupils equal. Conjunctiva normal. HEENT: External appearance of nose and ears normal, oral cavity grossly normal. NECK: JVD not raised; masses not palpable. HEART: First and second heart sounds are normal; no edema. LUNGS: Respiratory rate increased, decreased breath sound crackles present. ABDOMEN: Soft, nontender, liver spleen not palpable, no masses palpable. PSYCH: Alert and oriented x3; mood and affect normal. Investigations: White count 15.5 hemoglobin 14 platelets 456 potassium 4.8 bun 34 creatinine 1.04 ProBNP 423 troponin I negative Influenza A and B both negative Chest x-ray film personally reviewed by me-some scanty infiltrate EKG tracing personally reviewed by me-normal sinus rhythm Assessment: -Probable viral pneumonitis was still significant chest congestion. Slow to respond.. -GERD -Essential hypertension -Hyperlipidemia -Coronary artery disease with stent -Rheumatoid arthritis Plan: Continue current medication. Pending bronchoscopy with lavage this afternoon. Discussed with patient and .
--- NOTE | 2019-12-26 17:57 | OP ---
OPERATIVE REPORT OPERATIVE PROCEDURE: Bronchoscopy and bronchoalveolar lavage/random washings. PREOPERATIVE DIAGNOSIS: Tracheobronchitis, reactive bronchospasm. POSTOPERATIVE DIAGNOSIS: Acute tracheitis, acute bronchitis, and foreign body on the epiglottis. ANESTHESIA USED: IV conscious sedation. BRONCHOSCOPY PROCEDURE: The patient was given preparation as per bronchoscopy protocol. Then he was brought into the bronchoscopy suite, placed in a supine position. Oxygen was applied via the Ventimask over his mouth and nasal cannula. We monitored his oxygen saturation continuously. Blood pressure was intermittently monitored and cardiac rhythm was continuously monitored. After adequate IV conscious sedation, the bronchoscope was inserted through the left naris down to the area of the epiglottis and the vocal cords. Upon evaluation of the epiglottis, there was a small 0.5 cm foreign body noted on the epiglottis, blue in color. I was able to remove the foreign body with the tip of the bronchoscope and by washing/irrigation. We eventually removed it from his mouth. Then lidocaine was applied over the vocal cords, and the bronchoscope was advanced further down to the trachea. There was evidence of inflammatory changes around the area of the vocal cords and there were also inflammatory changes noted in the trachea. Purulent secretions were noted in the distal trachea and in the different lobes. Pictures were taken. Random washing and bronchoalveolar lavage was done of the right upper lobe, right middle lobe, right lower lobe, left upper lobe, lingula and left lower lobe. Fluid was sent for different diagnostic studies, including cytology and for cultures. The foreign body removed from the area of the epiglottis was also sent to Pathology. The procedure was well tolerated. No evidence of any immediate complications. At the end of the procedure I performed direct evaluation of the epiglottis by using a GlideScope, and no evidence of significant pathology was noted except for inflammatory changes noted around the epiglottis and the area of the vocal cords. Procedure again was tolerated. No evidence of any immediate complications. MMODL / IJN: [id number] /
[2019-12-26 20:45] LABS: Glucose,Whole Blood 224 mg/dL (75-99)
[2019-12-27] MEDS: methylPREDNISolone SOD SUCCI 125 MG/2 ML VIAL IV SCH ×5 (01:30→23:49)
[2019-12-27] MEDS: ALPRAZolam 0.25 MG TAB PO PRN ×3 (01:34→23:49)
[2019-12-27 07:02] LABS: Glucose,Whole Blood 154 mg/dL (75-99)
[2019-12-27] MEDS: ENOXAPARIN 40 MG/0.4 ML SYRINGE SQ SCH (08:01)
[2019-12-27] MEDS: BUDESONIDE 1 MG/2 ML NEBU INHALATION SCH ×2 (08:22→20:26)
[2019-12-27] MEDS: IPRATROPIUM-ALBUTEROL 3 ML NEB INHALATION SCH ×4 (08:22→20:26)
[2019-12-27] MEDS: PANTOPRAZOLE 40 MG TABLET PO SCH (08:28)
[2019-12-27] MEDS: CARVEDILOL 12.5 MG TAB PO SCH ×2 (08:28→17:28)
[2019-12-27] MEDS: INSULIN ASPART (NovoLOG) 100 UNIT/ML VIAL SQ SCH ×4 (08:28→21:14)
[2019-12-27] MEDS: guaiFENesin 600 MG TABLET.ER PO SCH ×2 (08:28→21:13)
[2019-12-27] MEDS: amLODIPine 10 MG TAB PO SCH (08:28)
[2019-12-27] MEDS: MIDODRINE 5 MG TAB PO SCH ×3 (08:29→21:13)
[2019-12-27] MEDS: PRAVASTATIN SODIUM 40 MG TAB PO SCH (08:29)
[2019-12-27] MEDS: AZITHROMYCIN 500 MG TAB PO SCH (08:29)
[2019-12-27] MEDS: LORATADINE-PSEUDOEPH 5-120 MG 1 EACH TAB.ER.12H PO SCH ×2 (08:30→21:13)
[2019-12-27 11:24] LABS: Glucose,Whole Blood 255 mg/dL (75-99)
--- NOTE | 2019-12-27 12:22 | P.PN ---
Subjective Progress Note Date: 12/27/19 Principal diagnosis: Acute tracheobronchitis and reactive bronchospasm. This is a 74-year-old white male with history of throat cancer, diagnosed and treated over 20 years ago. Patient had surgery done at the [facility]. He never smoked. Patient is known to have history of hypertension, GERD, hypercholesterolemia, presented to his primary care physician recently with 3 weeks history of cough and wheezing. Cough is described as productive with whitish phlegm. But mostly the wheezing has been persistent. Patient denies any specific exposure. Denies any previous history of COPD or asthmatic bronchitis or bronchial asthma. Denies any active GERD symptoms. Patient was given by his primary care physician a course of antibiotics and steroids burst and taper. However has not been making much improvement. Hence the patient was sent to the ER. Chest x-ray showed no evidence of active disease. There was a questionable left lung nodule but seems to be more of a nipple shadow. His CBC showed leukocytosis with WBC count of 15.5. Hemoglobin 14.0. Electrolytes were normal. Liver profile was normal. Lactic acid was normal. Influenza screen was negative. Patient was admitted, and this consult was initiated. Reevaluated today on 12/24/2019, patient is about the same. Continues to cough and wheeze. Cough is productive with whitish phlegm, denies any fever no chills no hemoptysis no chest pain. Patient feels chest tightness mostly. Patient r emains on antibiotics, steroids, bronchodilators, minimal improvement if any. Hence I discussed with the patient that if he continues to do the same over the next 24 hours, we will likely arrange for bronchoscopy and airways evaluation early Sunday. Patient was reevaluated today on 12/25/2019, slight improvement, nonetheless, the patient continues to have cough and wheezing. On physical examination definite wheezing bilaterally. Patient is slightly improved with steroids and bronchodilators, and I will go ahead and recommended bronchoscopy and evaluation of his airways. In the meantime I will recommend a jean-baptiste CT of the chest. Patient was reevaluated today on 12/27/19, slightly better, but continues to have coughing and wheezing. Underwent a bronchoscopy, and the findings were shared with the patient and his yesterday. Patient clearly had significant inflammatory changes in his airways, and in the area around the vocal cords, most likely related to acute infection and clearly the patient must have had radiation change from previous head and neck cancer. 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 Today the patient is not quite ready for discharge planning, I do plan to have a high-resolution CT of the chest on this patient. Objective - Vital Signs Vital signs: Vital Signs Temp 97.0 F L 12/27/19 05:03 Pulse 88 12/27/19 11:38 Resp 20 12/27/19 05:03 BP 114/79 12/27/19 05:03 Pulse Ox 97 12/27/19 05:03 Intake & Output 12/26/19 12/27/19 12/27/19 18:59 06:59 18:59 Intake Total 300 300 Balance 300 300 Intake: IV 300 Oral 300 Other: Voiding Method Toilet Toilet # Voids 3 3 # Bowel Movements 0 - Exam Physical Exam: Revealed a 74-year-old white male in no distress. Head: Atraumatic, normocephalic. HEENT:[Neck is supple.] [No neck masses.] [No thyromegaly.] [No JVD.] Postsurgical changes noted in the neck area on the right side. Chest: [Symmetrical chest expansion, rhonchi and wheezes noted bilaterally. Cardiac Exam: [Normal S1 and S2, no S3 gallop, no murmur.] Abdomen: [Soft, nontender, no megaly, no rebound, no guarding, normal bowel sounds.] Extremities: [No clubbing, no edema, no cyanosis.] Neurological Exam: [No focal neurologic deficit.] Psychiatric: Normal mood, affect and normal mental status examination. Skin: No rashes. - Labs CBC & Chem 7: 12/23/19 10:55 12/23/19 10:55 Labs: Abnormal Lab Results - Last 24 Hours (Table) 12/26/19 12/26/19 12/27/19 Range/Units 16:56 20:43 06:52 POC Glucose (mg/dL) 189 H 224 H 154 H (75-99) mg/dL 12/27/19 Range/Units 11:16 POC Glucose (mg/dL) 255 H (75-99) mg/dL Microbiology - Last 24 Hours (Table) 12/26/19 15:17 Gram Stain - Preliminary Bronchial Washings - Random Bronchial Washings Culture - Preliminary 12/26/19 15:17 Acid Fast Bacilli Culture - Preliminary Bronchial Washings - Random 12/26/19 15:17 Fungal Culture - Preliminary Bronchial Washings - Random 12/23/19 10:55 Blood Culture - Preliminary Blood No Growth after 72 hours Assessment and Plan Assessment: Impression: Acute tracheobronchitis and reactive bronchospasm. Failed outpatient therapy. History of head and neck cancer, diagnosed and treated over 20 years ago. Benign essential hypertension History of coronary artery disease and previous [place], previous stent placement. Dyslipidemia. Status post bronchoscopy and BAL, postoperative day #1 Tracheobronchomalacia. Recommendation: Continue antibiotics, bronchodilators, steroids. Arrange for a high-resolution CT of the chest today. Consider discharge planning in the next 24 hours and outpatient follow-up. We'll reevaluate in a.m. Time with Patient: Less than 30
[2019-12-27] MEDS: ACETAMINOPHEN TAB 325 MG TAB PO PRN (12:38)
[2019-12-27] MEDS: SENNOSIDES 8.6 MG TAB PO SCH (12:38)
--- NOTE | 2019-12-27 13:38 | CT ---
EXAMINATION TYPE: CT chest wo con DATE OF EXAM: 12/27/2019 COMPARISON: None. HISTORY: Chronic cough , history of pharyngeal cancer CT DLP: 293 mGycm. Automated Exposure Control for Dose Reduction was Utilized. TECHNIQUE: CT scan of the thorax is performed without IV contrast. FINDINGS: There is mild upper lobe bronchiectasis present bilaterally. There is some inflammatory bernice nge in the anterior segment of the right upper lobe. This may represent early pneumonia. There is als o patchy groundglass opacity in the apical posterior segment of the left upper lobe. There is atelect atic change present at the lung bases. There is a calcified granuloma in the apical posterior segment of the left upper lobe. There is no significant axillary, mediastinal or hilar adenopathy. There is no pleural or pericardial fluid. The heart is not enlarged. IMPRESSION: 1. MILD BRONCHIECTATIC CHANGE IN THE UPPER LOBES BILATERALLY. 2. EVIDENCE OF OLD GRANULOMATOUS DISEASE. 3. AT LEAST 2 AREAS OF GROUNDGLASS OPACITY WHICH MAY REPRESENT EARLY PNEUMONIA.
[2019-12-27 17:14] LABS: Glucose,Whole Blood 194 mg/dL (75-99)
[2019-12-27 20:11] LABS: Glucose,Whole Blood 208 mg/dL (75-99)
[2019-12-28] MEDS: methylPREDNISolone SOD SUCCI 125 MG/2 ML VIAL IV SCH ×4 (05:46→23:58)
[2019-12-28 06:53] LABS: Glucose,Whole Blood 152 mg/dL (75-99)
[2019-12-28] MEDS: ENOXAPARIN 40 MG/0.4 ML SYRINGE SQ SCH (07:31)
[2019-12-28] MEDS: LORATADINE-PSEUDOEPH 5-120 MG 1 EACH TAB.ER.12H PO SCH ×2 (07:31→20:32)
[2019-12-28] MEDS: IPRATROPIUM-ALBUTEROL 3 ML NEB INHALATION SCH ×4 (07:45→20:44)
[2019-12-28] MEDS: BUDESONIDE 1 MG/2 ML NEBU INHALATION SCH ×2 (07:45→20:44)
[2019-12-28] MEDS: ACETAMINOPHEN TAB 325 MG TAB PO PRN ×2 (08:03→20:36)
[2019-12-28] MEDS: ALPRAZolam 0.25 MG TAB PO PRN ×2 (08:03→20:36)
[2019-12-28] MEDS: INSULIN ASPART (NovoLOG) 100 UNIT/ML VIAL SQ SCH ×4 (08:03→20:32)
[2019-12-28] MEDS: PRAVASTATIN SODIUM 40 MG TAB PO SCH (08:04)
[2019-12-28] MEDS: SENNOSIDES 8.6 MG TAB PO SCH (08:04)
[2019-12-28] MEDS: guaiFENesin 600 MG TABLET.ER PO SCH ×2 (08:04→20:31)
[2019-12-28] MEDS: amLODIPine 10 MG TAB PO SCH (08:04)
[2019-12-28] MEDS: MIDODRINE 5 MG TAB PO SCH ×3 (08:04→20:31)
[2019-12-28] MEDS: PANTOPRAZOLE 40 MG TABLET PO SCH (08:04)
[2019-12-28] MEDS: CARVEDILOL 12.5 MG TAB PO SCH ×2 (08:04→17:43)
[2019-12-28] MEDS: AZITHROMYCIN 500 MG TAB PO SCH (08:04)
[2019-12-28 11:50] LABS: Glucose,Whole Blood 224 mg/dL (75-99)
[2019-12-28] MEDS ORDERED: SODIUM CHLORIDE 0.9% 500 ML 500 ML IV ONE (12:19)
--- NOTE | 2019-12-28 12:51 | P.PN ---
Subjective Progress Note Date: 12/28/19 Principal diagnosis: Acute tracheobronchitis and reactive bronchospasm This is a 74-year-old white male with history of throat cancer, diagnosed and treated over 20 years ago. Patient had surgery done at the [facility]. He never smoked. Patient is known to have history of hypertension, GERD, hypercholesterolemia, presented to his primary care physician recently with 3 weeks history of cough and wheezing. Cough is described as productive with whitish phlegm. But mostly the wheezing has been persistent. Patient denies any specific exposure. Denies any previous history of COPD or asthmatic bronchitis or bronchial asthma. Denies any active GERD symptoms. Patient was given by his primary care physician a course of antibiotics and steroids burst and taper. However has not been making much improvement. Hence the patient was sent to the ER. Chest x-ray showed no evidence of active disease. There was a questionable left lung nodule but seems to be more of a nipple shadow. His CBC showed leukocytosis with WBC count of 15.5. Hemoglobin 14.0. Electrolytes were normal. Liver profile was normal. Lactic acid was normal. Influenza screen was negative. Patient was admitted, and this consult was initiated. Reevaluated today on 12/24/2019, patient is about the same. Continues to cough and wheeze. Cough is productive with whitish phlegm, denies any fever no chills no hemoptysis no chest pain. Patient feels chest tightness mostly. Patient r emains on antibiotics, steroids, bronchodilators, minimal improvement if any. Hence I discussed with the patient that if he continues to do the same over the next 24 hours, we will likely arrange for bronchoscopy and airways evaluation early Sunday. Patient was reevaluated today on 12/25/2019, slight improvement, nonetheless, the patient continues to have cough and wheezing. On physical examination definite wheezing bilaterally. Patient is slightly improved with steroids and bronchodilators, and I will go ahead and recommended bronchoscopy and evaluation of his airways. In the meantime I will recommend a jean-baptiste CT of the chest. The patient is seen today 12/26/2019 in follow-up on the regular medical floor. He is currently awake and alert in no acute distress. Breathing a bit easier t nehemias compared to yesterday. Not quite back to his baseline. Maintaining O2 saturations in the 90s on room air. He's afebrile. Hemodynamically stable. Blood culture reveals no growth. Blood glucose 154. He is continued on bronchodilators, Solu-Medrol, Mucinex, Claritin, ceftriaxone and azithromycin. The patient is seen today 12/28/2019 in follow-up on the regular medical floor. He did undergo bronchoscopy with BAL. Cultures revealed Ladan only thus far. He remains on DuoNeb inhalations, Pulmicort and Perforomist inhalations, IV Solu-Medrol, antibiotics in the form of ceftriaxone and azithromycin. He is still somewhat bronchospastic and wheezy today. He is maintaining good O2 sa turations in the 90s on room air. Objective - Vital Signs Vital signs: Vital Signs Temp 97.6 F 12/28/19 05:19 Pulse 84 12/28/19 11:28 Resp 20 12/28/19 05:19 BP 126/86 12/28/19 07:10 Pulse Ox 98 12/28/19 07:46 Intake & Output 12/27/19 12/28/19 12/28/19 18:59 06:59 18:59 Intake Total 600 300 Balance 600 300 Intake: Oral 600 300 Other: Voiding Method Toilet # Voids 1 2 - Exam GENERAL EXAM: Alert, pleasant 74-year-old gentleman, on room air, comfortable in no apparent distress. HEAD: Normocephalic. EYES: Normal reaction of pupils, equal size. NOSE: Clear with pink turbinates. THROAT: No erythema or exudates. NECK: No masses, no JVD. CHEST: No chest wall deformity. LUNGS: Equal air entry with end expiratory wheeze bilaterally CVS: S1 and S2 normal with no audible murmur, regular rhythm. ABDOMEN: No hepatosplenomegaly, normal bowel sounds, no guarding or rigidity. SPINE: No scoliosis or deformity SKIN: No rashes CENTRAL NERVOUS SYSTEM: No focal deficits, tone is normal in all 4 extremities. EXTREMITIES: There is no peripheral edema. No clubbing, no cyanosis. Peripheral pulses are intact. - Labs CBC & Chem 7: 12/23/19 10:55 12/23/19 10:55 Labs: Abnormal Lab Results - Last 24 Hours (Table) 12/27/19 12/27/19 12/28/19 Range/Units 17:11 20:10 06:43 POC Glucose (mg/dL) 194 H 208 H 152 H (75-99) mg/dL 12/28/19 Range/Units 11:37 POC Glucose (mg/dL) 224 H (75-99) mg/dL Microbiology - Last 24 Hours (Table) 12/26/19 15:17 Gram Stain - Final Bronchial Washings - Random Bronchial Washings Culture - Final Ladan albicans 12/26/19 15:17 Acid Fast Bacilli Smear - Final Bronchial Washings - Random Acid Fast Bacilli Culture - Preliminary 12/23/19 10:55 Blood Culture - Preliminary Blood No Growth after 96 hours Assessment and Plan Assessment: Acute tracheobronchitis and reactive bronchospasm. Failed outpatient therapy. Status post bronchoscopy with BAL. Ladan in the cultures only thus far. History of head and neck cancer, diagnosed and treated over 20 years ago. Benign essential hypertension History of coronary artery disease and previous [place], previous stent placement. Dyslipidemia. Plan: The patient was seen and evaluated by Dr. Liz. He is improved but not quite back to his baseline. Continue the current medications. We'll continue to follow. Probable discharge in the a.m. I, the cosigning physician, performed a history & physical examination of the patient. Lungs sounds with bilateral end expiratory wheeze. Maintaining good O2 saturations in the 90s on room air. I discussed the assessment and plan of care with my nurse practitioner, Suha Wiseman. I attest to the above note as dictated by her.
--- NOTE | 2019-12-28 12:57 | P.PN ---
Progress Note - Text Progress Note Date: 12/28/19 This is for further documentation on this patient, CT of the chest which was done yesterday is strongly suspicious for multilobar areas of pneumonia, not seen on chest x-ray. This is again most likely community-acquired pneumonia. Patient has been treated with Zithromax and Rocephin appropriately. Cultures from the bronchoscopy are pending.
[2019-12-28 16:38] LABS: Glucose,Whole Blood 313 mg/dL (75-99)
[2019-12-28 20:27] LABS: Glucose,Whole Blood 176 mg/dL (75-99)
--- NOTE | 2019-12-28 23:10 | P.PN ---
Subjective Progress Note Date: 12/27/19 Principal diagnosis: acute COPD exacerbation This is a very pleasant [address] HUNT. Chronic stable medical conditions include GERD, hypertension, hyperlipidemia, coronary artery disease, rheumatoid arthritis. Patient also had a history of head and neck cancer back in 1999 treated with radiation treatment. Patient for 2 weeks has been struggling with wheezing shortness of breath cough congestion and clear sputum. Has a course of antibiotic steroids by his family doctor. Not much improvement. Because of steroids appetite is actually rather good. Significant congested still hence admitted for the same. No muscle achiness. Admitted with bilateral pneumonitis and secondary bronchospasm. 12/26/19-continues to be congested in the chest. 2 still bit better than since admission. Due for bronchoscopy with lavage this afternoon. and daughter the bedside.. 12/27/2019 Patient is currently sitting in the bed. Still having exertional short ofbreath, cough and wheezing. Patient had bronchoscopy. BAL fluid cultures showed Ladan. Denied any fever or chills. No complaints of significant sputum production. High-resolution CT of the chest was ordered. Pulmonary is following. Patient is being continued on IV steroids, antibiotics and DuoNeb's and oxygen therapy. Review of systems: Was done for constitutional, cardiovascular, GI, pulmonary. relevant finding as above Active Medications Acetaminophen (Tylenol Tab) 650 mg PO Q6HR PRN PRN Reason: Fever and/ or Pain Last Admin: 12/27/19 12:38 Dose: 650 mg Documented by: Albuterol/Ipratropium (Duoneb 0.5 Mg-3 Mg/3 Ml Soln) 3 ml INHALATION RT-QID [facility] Last Admin: 12/27/19 20:26 Dose: 3 ml Documented by: Alprazolam (Xanax) 0.25 mg PO TID PRN PRN Reason: Anxiety Last Admin: 12/27/19 11:48 Dose: 0.25 mg Documented by: Amlodipine Besylate (Norvasc) 10 mg PO DAILY [facility] Last Admin: 12/27/19 08:28 Dose: 10 mg Documented by: Azithromycin (Zithromax) 500 mg PO DAILY [facility] Last Admin: 12/27/19 08:29 Dose: 500 mg Documented by: Budesonide (Pulmicort) 1 mg INHALATION RT-BID [facility] Last Admin: 12/27/19 20:26 Dose: 1 mg Documented by: Carvedilol (Coreg) 12.5 mg PO BID-W/MEALS [facility] Last Admin: 12/27/19 17:28 Dose: 12.5 mg Documented by: Enoxaparin Sodium (Lovenox) 40 mg SQ DAILY [facility] Last Admin: 12/27/19 08:01 Dose: Not Given Documented by: Guaifenesin (Mucinex) 1,200 mg PO Q12HR [facility] Last Admin: 12/27/19 21:13 Dose: 1,200 mg Documented by: Ceftriaxone Sodium 1 gm/ (Sodium Chloride) 50 mls @ 100 mls/hr IVPB Q24HR [facility] Last Admin: 12/27/19 08:29 Dose: 100 mls/hr Documented by: Insulin Aspart (Novolog) 0 unit SQ [facility]; Protocol Last Admin: 12/27/19 21:14 Dose: 6 unit Documented by: Loratadine/Pseudoephedrine Sulfate (Claritin-D 12 Hr) 1 each PO Q12HR [facility] Last Admin: 12/27/19 21:13 Dose: Not Given Documented by: Methylprednisolone Sodium Succinate (Solu-Medrol) 60 mg IV Q6HR [facility] Last Admin: 12/27/19 17:28 Dose: 60 mg Documented by: Midodrine (Proamatine) 5 mg PO TID [facility] Last Admin: 12/27/19 21:13 Dose: 5 mg Documented by: Pantoprazole Sodium (Protonix) 40 mg PO AC-BRKFST [facility] Last Admin: 12/27/19 08:28 Dose: 40 mg Documented by: Pravastatin Sodium (Pravachol) 40 mg PO DAILY [facility] Last Admin: 12/27/19 08:29 Dose: 40 mg Documented by: Senna (Senokot) 8.6 mg PO DAILY [facility] Last Admin: 12/27/19 12:38 Dose: 8.6 mg Documented by: Objective - Vital Signs Vital signs: Vital Signs Temp 97.6 F 12/27/19 12:29 Pulse 58 L 12/27/19 12:29 Resp 18 12/27/19 12:29 BP 109/73 12/27/19 12:29 Pulse Ox 94 L 12/27/19 12:29 Intake & Output 12/26/19 12/27/19 12/27/19 18:59 06:59 18:59 Intake Total 300 600 Balance 300 600 Intake: IV 300 Oral 600 Other: Voiding Method Toilet Toilet # Voids 3 3 1 # Bowel Movements 0 - Exam PHYSICAL EXAMINATION: Patient is lying in the bed comfortably, no acute distress, awake alert and oriented.. HEENT: Normocephalic. Neck is supple. Pupils reactive. Nostrils clear. Oral cavity is moist. Ears reveal no drainage. Neck reveals no JVD, carotid bruits, or thyromegaly. CHEST EXAMINATION: Trachea is central. Symmetrical expansion. bilateral diffuse wheezing and rhonchi present. CARDIAC: Normal S1, S2 with no gallops. No murmurs ABDOMEN: Soft. Bowel sounds normal. No organomegaly. No abdominal bruits. Extremities: reveal no edema. No clubbing or cyanosis Neurologically awake, alert, oriented x3 with well-coordinated movements. No focal deficits noted Skin: No rash or skin lesions. Psychiatric: Coperative. Nonsuicidal, anxious. Musculoskeletal: No joint swelling or deformity. Normal range of motion. - Labs CBC & Chem 7: 12/23/19 10:55 12/23/19 10:55 Labs: Abnormal Lab Results - Last 24 Hours (Table) 12/26/19 12/26/19 12/27/19 Range/Units 16:56 20:43 06:52 POC Glucose (mg/dL) 189 H 224 H 154 H (75-99) mg/dL 12/27/19 Range/Units 11:16 POC Glucose (mg/dL) 255 H (75-99) mg/dL Microbiology - Last 24 Hours (Table) 12/23/19 10:55 Blood Culture - Preliminary Blood No Growth after 96 hours 12/26/19 15:17 Gram Stain - Preliminary Bronchial Washings - Random Bronchial Washings Culture - Preliminary Ladan albicans 12/26/19 15:17 Acid Fast Bacilli Culture - Preliminary Bronchial Washings - Random 12/26/19 15:17 Fungal Culture - Preliminary Bronchial Washings - Random Assessment and Plan Assessment: -acute tracheobronchitis and reactive bronchospasm -Probable viral pneumonitis was still significant chest congestion. Slow to respond.. -status post bronchoscopy. Postoperative day 1. Cultures showed Ladan. -Tracheobronchomalacia -History of head and neck cancer about 20 years ago. Status post rad. -GERD -Essential hypertension -Hyperlipidemia -Coronary artery disease with stent -Rheumatoid arthritis Plan: Continue current medication. status post bronchoscopy. follow-up culture reports. High-resolution CT was ordered .continued onIV steroids, and DuoNeb's and antibiotics in the form of ceftriaxone and azithromycin. Discussed with patient and . Time with Patient: Greater than 30
--- NOTE | 2019-12-28 23:17 | P.PN ---
Subjective Progress Note Date: 12/28/19 Principal diagnosis: acute COPD exacerbation This is a very pleasant 74 [address] HUNT. Chronic stable medical conditions include GERD, hypertension, hyperlipidemia, coronary artery disease, rheumatoid arthritis. Patient also had a history of head and neck cancer back in 1999 treated with radiation treatment. Patient for 2 weeks has been struggling with wheezing shortness of breath cough congestion and clear sputum. Has a course of antibiotic steroids by his family doctor. Not much improvement. Because of steroids appetite is actually rather good. Significant congested still hence admitted for the same. No muscle achiness. Admitted with bilateral pneumonitis and secondary bronchospasm. 12/26/19-continues to be congested in the chest. 2 still bit better than since admission. Due for bronchoscopy with lavage this afternoon. and daughter the bedside.. 12/27/2019 Patient is currently sitting in the bed. Still having exertional short ofbreath, cough and wheezing. Patient had bronchoscopy. BAL fluid cultures showed Ladan. Denied any fever or chills. No complaints of significant sputum production. High-resolution CT of the chest was ordered. Pulmonary is following. Patient is being continued on IV steroids, antibiotics and DuoNeb's and oxygen therapy. 12/28/2019 Patient says that his breathing is better today. Minimal expiratory wheezing present. Bilateral air entry improved. Patient had high resolution CT showed early pneumonia.atient is being continued on antibiotics in ceftriaxone and azithromycin for possible CAP. patient is currently saturating well on room air. Afebrile. No complaints ofchest pain or worsening shortness of breath. Review of systems: Was done for constitutional, cardiovascular, GI, pulmonary. relevant finding as above Active Medications Acetaminophen (Tylenol Tab) 650 mg PO Q6HR PRN PRN Reason: Fever and/ or Pain Last Admin: 12/27/19 12:38 Dose: 650 mg Documented by: Albuterol/Ipratropium (Duoneb 0.5 Mg-3 Mg/3 Ml Soln) 3 ml INHALATION RT-QID [facility] Last Admin: 12/27/19 20:26 Dose: 3 ml Documented by: Alprazolam (Xanax) 0.25 mg PO TID PRN PRN Reason: Anxiety Last Admin: 12/27/19 11:48 Dose: 0.25 mg Documented by: Amlodipine Besylate (Norvasc) 10 mg PO DAILY [facility] Last Admin: 12/27/19 08:28 Dose: 10 mg Documented by: Azithromycin (Zithromax) 500 mg PO DAILY [facility] Last Admin: 12/27/19 08:29 Dose: 500 mg Documented by: Budesonide (Pulmicort) 1 mg INHALATION RT-BID [facility] Last Admin: 12/27/19 20:26 Dose: 1 mg Documented by: Carvedilol (Coreg) 12.5 mg PO BID-W/MEALS [facility] Last Admin: 12/27/19 17:28 Dose: 12.5 mg Documented by: Enoxaparin Sodium (Lovenox) 40 mg SQ DAILY [facility] Last Admin: 12/27/19 08:01 Dose: Not Given Documented by: Guaifenesin (Mucinex) 1,200 mg PO Q12HR [facility] Last Admin: 12/27/19 21:13 Dose: 1,200 mg Documented by: Ceftriaxone Sodium 1 gm/ (Sodium Chloride) 50 mls @ 100 mls/hr IVPB Q24HR [facility] Last Admin: 12/27/19 08:29 Dose: 100 mls/hr Documented by: Insulin Aspart (Novolog) 0 unit SQ [facility]; Protocol Last Admin: 12/27/19 21:14 Dose: 6 unit Documented by: Loratadine/Pseudoephedrine Sulfate (Claritin-D 12 Hr) 1 each PO Q12HR [facility] Last Admin: 12/27/19 21:13 Dose: Not Given Documented by: Methylprednisolone Sodium Succinate (Solu-Medrol) 60 mg IV Q6HR [facility] Last Admin: 12/27/19 17:28 Dose: 60 mg Documented by: Midodrine (Proamatine) 5 mg PO TID [facility] Last Admin: 12/27/19 21:13 Dose: 5 mg Documented by: Pantoprazole Sodium (Protonix) 40 mg PO AC-BRKFST [facility] Last Admin: 12/27/19 08:28 Dose: 40 mg Documented by: Pravastatin Sodium (Pravachol) 40 mg PO DAILY [facility] Last Admin: 12/27/19 08:29 Dose: 40 mg Documented by: Senna (Senokot) 8.6 mg PO DAILY [facility] Last Admin: 12/27/19 12:38 Dose: 8.6 mg Documented by: Objective - Vital Signs Vital signs: Vital Signs Temp 97.6 F 03/01/20 13:05 Pulse 72 12/28/19 13:05 Resp 20 12/28/19 13:05 BP 85/53 12/28/19 13:05 Pulse Ox 98 12/28/19 13:05 Intake & Output 12/27/19 12/28/19 12/28/19 18:59 06:59 18:59 Intake Total 600 600 Balance 600 600 Intake: Oral 600 600 Other: Voiding Method Toilet # Voids 1 2 1 - Exam PHYSICAL EXAMINATION: Patient is lying in the bed comfortably, no acute distress, awake alert and oriented.. HEENT: Normocephalic. Neck is supple. Pupils reactive. Nostrils clear. Oral cavity is moist. Ears reveal no drainage. Neck reveals no JVD, carotid bruits, or thyromegaly. CHEST EXAMINATION: Trachea is central. Symmetrical expansion. minimal expiratory wheeze, bilateral air entry improved. CARDIAC: Normal S1, S2 with no gallops. No murmurs ABDOMEN: Soft. Bowel sounds normal. No organomegaly. No abdominal bruits. Extremities: reveal no edema. No clubbing or cyanosis Neurologically awake, alert, oriented x3 with well-coordinated movements. No focal deficits noted Skin: No rash or skin lesions. Psychiatric: Coperative. Nonsuicidal, anxious. Musculoskeletal: No joint swelling or deformity. Normal range of motion. - Labs CBC & Chem 7: 12/23/19 10:55 12/23/19 10:55 Labs: Abnormal Lab Results - Last 24 Hours (Table) 12/27/19 12/27/19 12/28/19 Range/Units 17:11 20:10 06:43 POC Glucose (mg/dL) 194 H 208 H 152 H (75-99) mg/dL 12/28/19 Range/Units 11:37 POC Glucose (mg/dL) 224 H (75-99) mg/dL Microbiology - Last 24 Hours (Table) 12/23/19 10:55 Blood Culture - Preliminary Blood No Growth after 120 hours 12/26/19 15:17 Gram Stain - Final Bronchial Washings - Random Bronchial Washings Culture - Final Ladan albicans 12/26/19 15:17 Acid Fast Bacilli Smear - Final Bronchial Washings - Random Acid Fast Bacilli Culture - Preliminary Assessment and Plan Assessment: -multifocal pneumonia and reactive bronchospasm -minimal bronchiectatic changes of the upper lobes -Probable viral pneumonitis was still significant chest congestion. Slow to respond.. -status post bronchoscopy. Postoperative day 2. Cultures showed Ladan. -Tracheobronchomalacia -History of head and neck cancer about 20 years ago. Status post rad. -GERD -Essential hypertension -Hyperlipidemia -Coronary artery disease with stent -Rheumatoid arthritis Plan: Continue current medication. status post bronchoscopy. follow-up culture reports. High-resolution CT was ordered .continued on IV steroids, and DuoNeb's and antibiotics in the form of ceftriaxone and azithromycin. Discussed with patient and . Time with Patient: Greater than 30
[2019-12-29] MEDS: methylPREDNISolone SOD SUCCI 125 MG/2 ML VIAL IV SCH ×3 (05:04→17:32)
[2019-12-29 07:17] LABS: Glucose,Whole Blood 216 mg/dL (75-99)
[2019-12-29] MEDS: BUDESONIDE 1 MG/2 ML NEBU INHALATION SCH ×2 (07:27→19:17)
[2019-12-29] MEDS: IPRATROPIUM-ALBUTEROL 3 ML NEB INHALATION SCH ×4 (07:27→19:17)
[2019-12-29] MEDS: ENOXAPARIN 40 MG/0.4 ML SYRINGE SQ SCH (07:42)
[2019-12-29] MEDS: AZITHROMYCIN 500 MG TAB PO SCH (07:42)
[2019-12-29] MEDS: amLODIPine 10 MG TAB PO SCH (07:42)
[2019-12-29] MEDS: guaiFENesin 600 MG TABLET.ER PO SCH ×2 (07:43→21:05)
[2019-12-29] MEDS: LORATADINE-PSEUDOEPH 5-120 MG 1 EACH TAB.ER.12H PO SCH ×2 (07:43→21:05)
[2019-12-29] MEDS: SENNOSIDES 8.6 MG TAB PO SCH (07:43)
[2019-12-29] MEDS: MIDODRINE 5 MG TAB PO SCH ×3 (07:43→21:06)
[2019-12-29] MEDS: INSULIN ASPART (NovoLOG) 100 UNIT/ML VIAL SQ SCH ×4 (07:44→21:05)
[2019-12-29] MEDS: CARVEDILOL 12.5 MG TAB PO SCH ×2 (07:44→17:32)
[2019-12-29] MEDS: PANTOPRAZOLE 40 MG TABLET PO SCH (07:44)
[2019-12-29] MEDS: PRAVASTATIN SODIUM 40 MG TAB PO SCH (07:44)
[2019-12-29] MEDS: ALPRAZolam 0.25 MG TAB PO PRN (09:24)
[2019-12-29 12:02] LABS: Glucose,Whole Blood 213 mg/dL (75-99)
--- NOTE | 2019-12-29 12:19 | P.PN ---
Subjective Progress Note Date: 12/29/19 Principal diagnosis: Community acquired pneumonia This is a 74-year-old white male with history of throat cancer, diagnosed and treated over 20 years ago. Patient had surgery done at the [facility]. He never smoked. Patient is known to have history of hypertension, GERD, hypercholesterolemia, presented to his primary care physician recently with 3 weeks history of cough and wheezing. Cough is described as productive with whitish phlegm. But mostly the wheezing has been persistent. Patient denies any specific exposure. Denies any previous history of COPD or asthmatic bronchitis or bronchial asthma. Denies any active GERD symptoms. Patient was given by his primary care physician a course of antibiotics and steroids burst and taper. However has not been making much improvement. Hence the patient was sent to the ER. Chest x-ray showed no evidence of active disease. There was a questionable left lung nodule but seems to be more of a nipple shadow. His CBC showed leukocytosis with WBC count of 15.5. Hemoglobin 14.0. Electrolytes were normal. Liver profile was normal. Lactic acid was normal. Influenza screen was negative. Patient was admitted, and this consult was initiated. Reevaluated today on 12/24/2019, patient is about the same. Continues to cough and wheeze. Cough is productive with whitish phlegm, denies any fever no chills no hemoptysis no chest pain. Patient feels chest tightness mostly. Patient remains on antibiotics, steroids, bronchodilators, minimal improvement if any. Hence I discussed with the patient that if he continues to do the same over the next 24 hours, we will likely arrange for bronchoscopy and airways evaluation early Sunday. Patient was reevaluated today on 12/25/2019, slight improvement, nonetheless, the patient continues to have cough and wheezing. On physical examination definite wheezing bilaterally. Patient is slightly improved with steroids and bronchodilators, and I will go ahead and recommended bronchoscopy and evaluation of his airways. In the meantime I will recommend a jean-baptiste CT of the chest. The patient is seen today 12/26/2019 in follow-up on the regular medical floor. He is currently awake and alert in no acute distress. Breathing a bit easier today compared to yesterday. Not quite back to his baseline. Maintaining O2 saturations in the 90s on room air. He's afebrile. Hemodynamically stable. Blood culture reveals no growth. Blood glucose 154. He is continued on bronchodilators, Solu-Medrol, Mucinex, Claritin, ceftriaxone and azithromycin. The patient is seen today 12/28/2019 in follow-up on the regular medical floor. He did undergo bronchoscopy with BAL. Cultures revealed Ladan only thus far. He remains on DuoNeb inhalations, Pulmicort and Perforomist inhalations, IV Solu-Medrol, antibiotics in the form of ceftriaxone and azithromycin. He is still somewhat bronchospastic and wheezy today. He is maintaining good O2 saturations in the 90s on room air. On 12/29/2019 patient is seen in follow-up on general medical floor, he is doing well, he is breathing easier, his voice is still hoarse, and he is still has some mild diffuse wheezes, but doing much better, room air pulse ox is 98%, he is afebrile, hemodynamically patient is stable, CT chest showed mild bronchiectatic changes in the upper lobes, and some limited areas of groundglass patchy opacity/pneumonitis or areas of multilobar pneumonia not previously seen on chest x-rays. Patient is status post bronchoscopy with BAL on 12/20/2019 and his bronchial wash cultures were positive for Ladan albicans only so far. No evidence of oral candidiasis on physical exam, clinically patient is doing well. He is requesting to go home today Objective - Vital Signs Vital signs: Vital Signs Temp 97.4 F L 12/29/19 04:30 Pulse 80 12/29/19 11:18 Resp 22 12/29/19 08:00 BP 116/78 12/29/19 04:30 Pulse Ox 98 12/29/19 07:27 Intake & Output 12/28/19 12/29/19 12/29/19 18:59 06:59 18:59 Intake Total 960 988 6465 Balance 047 880 0051 Intake: Intake, IV Titration 50 Amount cefTRIAXone 1 gm In 50 Sodium Chloride 0.9% 50 ml @ 100 mls/hr IVPB Q24HR [facility] Rx#:[id number] Oral 140 880 2264 Other: # Voids 1 1 2 - Exam GENERAL EXAM: Alert, very pleasant, 74-year-old on room air, with a pulse ox of 98% comfortable in no apparent distress. Patient has hoarse voice HEAD: Normocephalic/atraumatic. EYES: Normal reaction of pupils, equal size. Conjunctiva pink, sclera white. NOSE: Clear with pink turbinates. THROAT: No erythema or exudates. NECK: No masses, no JVD, no thyroid enlargement, no adenopathy. CHEST: No chest wall deformity. Symmetrical expansion. LUNGS: Equal air entry with scattered wheeze, rhonchi or dullness. CVS: Regular rate and rhythm, normal S1 and S2, no gallops, no murmurs, no rubs ABDOMEN: Soft, nontender. No hepatosplenomegaly, normal bowel sounds, no guarding or rigidity. EXTREMITIES: No clubbing, no edema, no cyanosis, 2+ pulses and upper and lower extremities. MUSCULOSKELETAL: Muscle strength and tone normal. SPINE: No scoliosis or deformity SKIN: No rashes CENTRAL NERVOUS SYSTEM: Alert and oriented -3. No focal deficits, tone is normal in all 4 extremities. PSYCHIATRIC: Alert and oriented -3. Appropriate affect. Intact judgment and insight. - Labs CBC & Chem 7: 12/23/19 10:55 12/23/19 10:55 Labs: Abnormal Lab Results - Last 24 Hours (Table) 12/28/19 12/28/19 12/29/19 Range/Units 16:35 20:24 07:11 POC Glucose (mg/dL) 313 H 176 H 216 H (75-99) mg/dL 12/29/19 Range/Units 12:00 POC Glucose (mg/dL) 213 H (75-99) mg/dL Microbiology - Last 24 Hours (Table) 12/23/19 10:55 Blood Culture - Preliminary Blood No Growth after 120 hours 12/26/19 15:17 Gram Stain - Final Bronchial Washings - Random Bronchial Washings Culture - Final Ladan albicans Assessment and Plan Plan: Assessment: #1. Acute tracheobronchitis and reactive bronchospasm. CT chest was completed and showed areas of patchy opacities bilaterally, suspicious for areas of pneumonitis/alveolitis, strongly suspicious for multifocal pneumonia related to community-acquired pneumonia. Failed outpatient therapy. Status post bronchoscopy with BAL. Ladan in the cultures only thus far. #2. History of head and neck cancer, diagnosed and treated over 20 years ago. #3. Benign essential hypertension #4 History of coronary artery disease and previous [place], previous stent placement. #5. Dyslipidemia. Plan: From pulmonary perspective patient could be considered for discharge home today, he has been treated with a course of Zithromax and Rocephin, he can continue on outpatient course of oral antibiotics and he will need prednisone taper, he will need breathing treatments, DuoNeb 4 times daily and as needed for shortness of breath. We like to see him in the outpatient basis for follow-up chest x-ray in the office with Dr. Rm in 7-10 days I performed a history & physical examination of the patient and discussed their management with my nurse practitioner, Delisa You. I reviewed the nurse practitioner's note and agree with the documented findings and plan of care. Lung sounds are positive for scattered wheezes. The findings and the impression was discussed with the patient. I attest to the documentation by the nurse practitioner. Time with Patient: Less than 30
[2019-12-29] MEDS: ACETAMINOPHEN TAB 325 MG TAB PO PRN (14:13)
[2019-12-29] MEDS: FLUCONAZOLE IN NACL,ISO-OSM 100 MG in SALINE 1 50ML.BAG IVPB SCH (15:46)
[2019-12-29 17:01] LABS: Glucose,Whole Blood 156 mg/dL (75-99)
--- NOTE | 2019-12-29 17:28 | PN ---
PROGRESS NOTE DATE OF SERVICE: 12/29/2019 This 74-year-old gentleman who was admitted with COPD, acute exacerbation, also had multifocal pneumonia. The patient also is complaining of generalized significant weakness at this time. The patient underwent bronchoscopy last week by Dr. Liz. Acute tracheitis and acute bronchitis and some foreign body in the epiglottis were suspected. Biopsies are pending at this time. Past medical history reviewed. REVIEW OF SYSTEMS: CARDIOVASCULAR SYSTEM: No angina, palpitations. RESPIRATORY SYSTEM: As mentioned earlier. GI: As mentioned earlier. : No dysuria or retention. NERVOUS SYSTEM: Diffusely weak. CURRENT MEDICATIONS: Reviewed. They include: 1. Tylenol p.r.n. 2. DuoNeb q.i.d. and p.r.n. 3. Xanax 0.25 t.i.d. 4. Norvasc 10 mg p.o. daily. 5. Zithromax 500 mg p.o. daily. 6. Pulmicort 1 mg b.i.d. 7. Coreg 2.5 mg b.i.d. 8. Rocephin 1 gram daily. 9. Lovenox 40 mg subcutaneously daily. 10.Mucinex 1200 mg p.o. b.i.d. 11.Losartan/pseudoephedrine 1 b.i.d. 12.Solu-Medrol 60 IV q.6. 13.ProAmatine 5 mg p.o. t.i.d. 14.Protonix 40 mg daily. 15.Pravachol 40 mg p.o. daily. 16.Senna 8.6 mg p.o. daily. PHYSICAL EXAMINATION: Patient alert, oriented x3. Pulse is 81, blood pressure 94/73, respiration 14, temperature normal, pulse ox 97% on 2.5 L. HEENT: Conjunctivae normal. NECK: No jugular venous distention. CARDIOVASCULAR SYSTEM: S1, S2 muffled. RESPIRATORY SYSTEM: Breath sounds diminished at the bases. Bilateral scattered rhonchi and crackles. Expiratory wheezing also present. ABDOMEN: Soft, non-tender. LEGS: No edema. No swelling. NERVOUS SYSTEM: No focal deficit. LABS: Accu-Cheks 216, 213. WBC 15.5, sodium 134, potassium 4.8. ASSESSMENT: 1. Multifocal pneumonia with reactive bronchospasm on admission. 2. Minimal bronchiectatic changes in the upper lobes. 3. Status post bronchoscopy. 4. Possible viral pneumonitis as well as chest congestion. 5. Tracheobronchomalacia. 6. History of head and neck cancer 20 years ago. 7. Gastroesophageal reflux disease. 8. Gait dysfunction. 9. Hypertension. 10.Hyperlipidemia. 11.History of coronary artery disease, stent. 12.History of rheumatoid arthritis. RECOMMENDATIONS AND DISCUSSION: In this 74-year-old gentleman who presented with multiple complex medical issues, we will monitor the patient closely, continue the current medications, continue with symptomatic treatment, continue with IV steroids. I would recommend adding Diflucan to the current regimen. Otherwise, continue the rest of the medications. PT/OT evaluation. Possible ECF rehab. Discussed with the patient. Discussed with the family. Further recommendations to follow. [id number] / IJN: [id number] /
[2019-12-29 20:39] LABS: Glucose,Whole Blood 183 mg/dL (75-99)
[2019-12-30] MEDS: ALPRAZolam 0.25 MG TAB PO PRN ×2 (00:30→07:47)
[2019-12-30] MEDS: methylPREDNISolone SOD SUCCI 125 MG/2 ML VIAL IV SCH ×3 (00:30→12:02)
[2019-12-30 05:16] VITALS: BP 100/64; RESP 20; TEMP 97.1
[2019-12-30 07:09] LABS: Glucose,Whole Blood 157 mg/dL (75-99)
[2019-12-30] MEDS: IPRATROPIUM-ALBUTEROL 3 ML NEB INHALATION SCH ×2 (07:25→11:04)
[2019-12-30] MEDS: BUDESONIDE 1 MG/2 ML NEBU INHALATION SCH (07:25)
[2019-12-30] MEDS: amLODIPine 10 MG TAB PO SCH (07:48)
[2019-12-30] MEDS: PANTOPRAZOLE 40 MG TABLET PO SCH (07:48)
[2019-12-30] MEDS: ENOXAPARIN 40 MG/0.4 ML SYRINGE SQ SCH (07:48)
[2019-12-30] MEDS: CARVEDILOL 12.5 MG TAB PO SCH (07:48)
[2019-12-30] MEDS: MIDODRINE 5 MG TAB PO SCH (07:48)
[2019-12-30] MEDS: PRAVASTATIN SODIUM 40 MG TAB PO SCH (07:49)
[2019-12-30] MEDS: SENNOSIDES 8.6 MG TAB PO SCH (07:49)
[2019-12-30] MEDS: guaiFENesin 600 MG TABLET.ER PO SCH (07:49)
[2019-12-30] MEDS: INSULIN ASPART (NovoLOG) 100 UNIT/ML VIAL SQ SCH ×2 (07:49→12:03)
[2019-12-30] MEDS: AZITHROMYCIN 500 MG TAB PO SCH (07:49)
[2019-12-30] MEDS: LORATADINE-PSEUDOEPH 5-120 MG 1 EACH TAB.ER.12H PO SCH (07:50)
[2019-12-30] MEDS: FLUCONAZOLE IN NACL,ISO-OSM 100 MG in SALINE 1 50ML.BAG IVPB SCH (08:38)
[2019-12-30 09:38] LABS: Basophils % (A) 0 %; Eosinophils % (A) 0 %; HCT 40.7 % (39.0-53.0); HGB 13.2 gm/dL (13.0-17.5); Lymphocytes # (A) 0.2 k/uL (1.0-4.8); Lymphocytes % (A) 2 %; MCH 30.1 pg (25.0-35.0); MCHC 32.4 g/dL (31.0-37.0); MCV 92.9 fL (80.0-100.0); Mean Platelet Volume 7.8; Monocytes # (A) 0.2 k/uL (0-1.0); Monocytes % (A) 2 %; Neutrophils % (A) 96 %; Platelet Count 340 k/uL (150-450); RBC 4.38 m/uL (4.30-5.90); RDW 12.4 % (11.5-15.5); WBC 10.4 k/uL (3.8-10.6)
[2019-12-30 09:45] LABS: Calcium 8.4 mg/dL (8.4-10.2); Potassium 4.5 mmol/L (3.5-5.1)
[2019-12-30 11:07] VITALS: PULSE 84
[2019-12-30 11:55] LABS: Glucose,Whole Blood 165 mg/dL (75-99)
[2019-12-30] MEDS: ACETAMINOPHEN TAB 325 MG TAB PO PRN (12:02)
--- NOTE | 2019-12-30 13:10 | P.PN ---
Subjective Progress Note Date: 12/30/19 Principal diagnosis: Community acquired pneumonia This is a 74-year-old white male with history of throat cancer, diagnosed and treated over 20 years ago. Patient had surgery done at the [facility]. He never smoked. Patient is known to have history of hypertension, GERD, hypercholesterolemia, presented to his primary care physician recently with 3 weeks history of cough and wheezing. Cough is described as productive with whitish phlegm. But mostly the wheezing has been persistent. Patient denies any specific exposure. Denies any previous history of COPD or asthmatic bronchitis or bronchial asthma. Denies any active GERD symptoms. Patient was given by his primary care physician a course of antibiotics and steroids burst and taper. However has not been making much improvement. Hence the patient was sent to the ER. Chest x-ray showed no evidence of active disease. There was a questionable left lung nodule but seems to be more of a nipple shadow. His CBC showed leukocytosis with WBC count of 15.5. Hemoglobin 14.0. Electrolytes were normal. Liver profile was normal. Lactic acid was normal. Influenza screen was negative. Patient was admitted, and this consult was initiated. Reevaluated today on 12/24/2019, patient is about the same. Continues to cough and wheeze. Cough is productive with whitish phlegm, denies any fever no chills no hemoptysis no chest pain. Patient feels chest tightness mostly. Patient remains on antibiotics, steroids, bronchodilators, minimal improvement if any. Hence I discussed with the patient that if he continues to do the same over the next 24 hours, we will likely arrange for bronchoscopy and airways evaluation early Sunday. Patient was reevaluated today on 12/25/2019, slight improvement, nonetheless, the patient continues to have cough and wheezing. On physical examination definite wheezing bilaterally. Patient is slightly improved with steroids and bronchodilators, and I will go ahead and recommended bronchoscopy and evaluation of his airways. In the meantime I will recommend a jean-baptiste CT of the chest. The patient is seen today 12/26/2019 in follow-up on the regular medical floor. He is currently awake and alert in no acute distress. Breathing a bit easier today compared to yesterday. Not quite back to his baseline. Maintaining O2 saturations in the 90s on room air. He's afebrile. Hemodynamically stable. Blood culture reveals no growth. Blood glucose 154. He is continued on bronchodilators, Solu-Medrol, Mucinex, Claritin, ceftriaxone and azithromycin. The patient is seen today 12/28/2019 in follow-up on the regular medical floor. He did undergo bronchoscopy with BAL. Cultures revealed Ladan only thus far. He remains on DuoNeb inhalations, Pulmicort and Perforomist inhalations, IV Solu-Medrol, antibiotics in the form of ceftriaxone and azithromycin. He is still somewhat bronchospastic and wheezy today. He is maintaining good O2 saturations in the 90s on room air. On 12/29/2019 patient is seen in follow-up on general medical floor, he is doing well, he is breathing easier, his voice is still hoarse, and he is still has some mild diffuse wheezes, but doing much better, room air pulse ox is 98%, he is afebrile, hemodynamically patient is stable, CT chest showed mild bronchiectatic changes in the upper lobes, and some limited areas of groundglass patchy opacity/pneumonitis or areas of multilobar pneumonia not previously seen on chest x-rays. Patient is status post bronchoscopy with BAL on 12/20/2019 and his bronchial wash cultures were positive for Ladan albicans only so far. No evidence of oral candidiasis on physical exam, clinically patient is doing well. He is requesting to go home today On 12/30/2019 patient seen in follow-up on general medical floor, he continues to improve, he sits up in the chair, in no acute distress to have some scattered wheezes, but good air entry noted bilaterally, vital signs are stable, remained pulse ox of 99%, no fever or chills. Bronchial lavage cultures have been reviewed only showing Ladan albicans, no signs of oral candidiasis, she remains on Zithromax and Rocephin and fluconazole was added and attending physician. Objective - Vital Signs Vital signs: Vital Signs Temp 97.1 F L 12/30/19 04:40 Pulse 84 12/30/19 11:16 Resp 20 12/30/19 04:40 BP 100/64 12/30/19 04:40 Pulse Ox 99 12/30/19 04:40 Intake & Output 12/29/19 12/30/19 12/30/19 18:59 06:59 18:59 Intake Total 1230 Balance 1230 Intake: Intake, IV Titration 50 Amount cefTRIAXone 1 gm In 50 Sodium Chloride 0.9% 50 ml @ 100 mls/hr IVPB Q24HR [facility] Rx#:[id number] Oral 1180 Other: Voiding Method Toilet Toilet Toilet # Voids 2 2 - Exam GENERAL EXAM: Alert, very pleasant, 74-year-old on room air, with a pulse ox of 98% comfortable in no apparent distress. Patient has hoarse voice HEAD: Normocephalic/atraumatic. EYES: Normal reaction of pupils, equal size. Conjunctiva pink, sclera white. NOSE: Clear with pink turbinates. THROAT: No erythema or exudates. NECK: No masses, no JVD, no thyroid enlargement, no adenopathy. CHEST: No chest wall deformity. Symmetrical expansion. LUNGS: Equal air entry with scattered wheeze, rhonchi or dullness. CVS: Regular rate and rhythm, normal S1 and S2, no gallops, no murmurs, no rubs ABDOMEN: Soft, nontender. No hepatosplenomegaly, normal bowel sounds, no guarding or rigidity. EXTREMITIES: No clubbing, no edema, no cyanosis, 2+ pulses and upper and lower extremities. MUSCULOSKELETAL: Muscle strength and tone normal. SPINE: No scoliosis or deformity SKIN: No rashes CENTRAL NERVOUS SYSTEM: Alert and oriented -3. No focal deficits, tone is normal in all 4 extremities. PSYCHIATRIC: Alert and oriented -3. Appropriate affect. Intact judgment and insight. - Labs CBC & Chem 7: 12/30/19 08:37 12/30/19 08:37 Labs: Abnormal Lab Results - Last 24 Hours (Table) 12/29/19 12/29/19 12/30/19 Range/Units 16:59 20:37 07:06 Neutrophils # (1.3-7.7) k/uL Lymphocytes # (1.0-4.8) k/uL Sodium (137-145) mmol/L BUN (9-20) mg/dL Glucose (74-99) mg/dL POC Glucose (mg/dL) 156 H 183 H 157 H (75-99) mg/dL 12/30/19 12/30/19 12/30/19 Range/Units 08:37 08:37 11:53 Neutrophils # 10.0 H (1.3-7.7) k/uL Lymphocytes # 0.2 L (1.0-4.8) k/uL Sodium 133 L (137-145) mmol/L BUN 42 H (9-20) mg/dL Glucose 179 H (74-99) mg/dL POC Glucose (mg/dL) 165 H (75-99) mg/dL Microbiology - Last 24 Hours (Table) 12/26/19 15:17 Fungal Culture - Preliminary Bronchial Washings - Random Ladan albicans 12/23/19 10:55 Blood Culture - Final Blood No Growth after 144 hours Assessment and Plan Plan: Assessment: #1. Acute tracheobronchitis and reactive bronchospasm. CT chest was completed and showed areas of patchy opacities bilaterally, suspicious for areas of pneumonitis/alveolitis, strongly suspicious for multifocal pneumonia related to community-acquired pneumonia. Failed outpatient therapy. Status post bronchoscopy with BAL. Ladan in the cultures only thus far. #2. History of head and neck cancer, diagnosed and treated over 20 years ago. #3. Benign essential hypertension #4 History of coronary artery disease and previous SC, previous stent placement. #5. Dyslipidemia. Plan: Patient remains stable, still has some mild wheezing and mild congestion, but overall has significantly improved since admission, no fever chills, bronchial lavage cultures have been reviewed, showing Ladan albicans, patient has been treated with a combination of Zithromax Rocephin, and fluconazole, no acute events overnight, tolerating activity, stable for discharge home today, with outpatient follow-up with his PCP I performed a history & physical examination of the patient and discussed their management with my nurse practitioner, Delisa You. I reviewed the nurse practitioner's note and agree with the documented findings and plan of care. Lung sounds are positive for scattered wheezes. The findings and the impression was discussed with the patient. I attest to the documentation by the nurse practitioner. Time with Patient: Less than 30
[2019-12-30] MEDS ORDERED: predniSONE 20 MG TAB PO SCH (13:45)
--- NOTE | 2019-12-30 23:16 | P.DS ---
Providers Date of admission: 12/25/19 09:17 Expected date of discharge: 12/30/19 Attending physician: Reji Irby Consults: 12/23/19 13:02 Consult Physician Routine Consulting Provider: Rody Liz Consult Reason/Comments: dyspnea Do you want consulting provider notified?: Yes Primary care physician: Gerald Nguyen [facility] Course: Chief Complaint: Congested cough History of presenting complaint: This is a very pleasant [address] NGUYEN. Chronic stable medical conditions include GERD, hypertension, hyperlipidemia, coronary artery disease, rheumatoid arthritis. Patient also had a history of head and neck cancer back in 1999 treated with radiation treatment. Patient for 2 weeks has been struggling with wheezing shortness of breath cough congestion and clear sputum. Has a course of antibiotic steroids by his family doctor. Not much improvement. Because of steroids appetite is actually rather good. Significant congested still hence admitted for the same. No muscle achiness. Admitted with bilateral pneumonitis and secondary bronchospasm. Patient underwent a bronchoscopy. Significant inflammation and bronchial washings p ositive for Ladan albicans. Diflucan antibiotics were continued. Also cause copy reveals soft tissue fragments. Today-breathing better. Because of tries was cut back. Patient been walking in the hallway. Discussed with him and the . Questions were answered. Cleared by pulmonary Discussion and discharge planning more than 35 minutes Consultation: Dr. Liz and colleagues Physical examination: VITAL SIGNS: 97.1, 85, 20, 100/64, 99% on room air GENERAL: Sitting up, more comfortable EYES: Pupils equal. Conjunctiva normal. HEENT: External appearance of nose and ears normal, oral cavity grossly normal. NECK: JVD not raised; masses not palpable. HEART: First and second heart sounds are normal; no edema. LUNGS: Respiratory rate increased, decreased breath less congestion ABDOMEN: Soft, nontender, liver spleen not palpable, no masses palpable. PSYCH: Alert and oriented x3; mood and affect normal. Investigations: White count 10.4 hemoglobin 13.2 potassium 4.5 creatinine 1.0 to Previous testing White count 15.5 hemoglobin 14 platelets 456 potassium 4.8 bun 34 creatinine 1.04 ProBNP 423 troponin I negative Influenza A and B both negative Chest x-ray film personally reviewed by me-some scanty infiltrate EKG tracing personally reviewed by me-normal sinus rhythm Bronchial washings-Ladan albicans Assessment: -Multifocal pneumonia possibly community-acquired -GERD -Essential hypertension -Hyperlipidemia -Coronary artery disease with stent -Rheumatoid arthritis Disposition: Home Patient Condition at Discharge: Stable Plan - Discharge Summary Discharge Rx Participant: No New Discharge Prescriptions: New Cefuroxime Axetil [Ceftin] 500 mg PO BID 5 Days #10 tab Loratadine-Pseudoeph 5-120 mg [Claritin-D 12 Hour] 1 each PO Q12HR #14 tab.er.12h Carvedilol [Coreg*] 12.5 mg PO BID-W/MEALS #60 tab Fluconazole [Diflucan] 200 mg PO DAILY #7 tab predniSONE 10 mg PO DAILY #30 tab amLODIPine [Norvasc] 5 mg PO DAILY #30 tab Continue Pravastatin Sodium [Pravachol] 40 mg PO DAILY Omeprazole 20 mg PO DAILY Tamsulosin HCl [Flomax] 0.4 mg PO BID HYDROcodone/APAP 5-325MG [Leburn 5-325] 1 tab PO BID PRN PRN Reason: Pain Midodrine HCl [ProAmantine] 2.5 mg PO TID Naproxen 500 mg PO BID PRN PRN Reason: Pain Albuterol Nebulized [Ventolin Nebulized] 2.5 mg INHALATION RT-TID PRN PRN Reason: Shortness Of Breath Discontinued predniSONE See Taper PO DAILY Renew Life 1 tab PO DAILY Levofloxacin [Levaquin] 500 mg PO DAILY amLODIPine [Norvasc] 2.5 mg PO DAILY Carvedilol [Coreg] 3.125 mg PO BID Gas Relief 1 tab PO DAILY PRN PRN Reason: GAS PAIN Discharge Medication List Omeprazole 20 mg PO DAILY 08/26/18 [History] Pravastatin Sodium [Pravachol] 40 mg PO DAILY 08/26/18 [History] Albuterol Nebulized [Ventolin Nebulized] 2.5 mg INHALATION RT-TID PRN 12/23/19 [History] HYDROcodone/APAP 5-325MG [Leburn 5-325] 1 tab PO BID PRN 12/23/19 [History] Midodrine HCl [ProAmantine] 2.5 mg PO TID 12/23/19 [History] Naproxen 500 mg PO BID PRN 12/23/19 [History] Tamsulosin HCl [Flomax] 0.4 mg PO BID 12/23/19 [History] Carvedilol [Coreg*] 12.5 mg PO BID-W/MEALS #60 tab 12/30/19 [Rx] Cefuroxime Axetil [Ceftin] 500 mg PO BID 5 Days #10 tab 12/30/19 [Rx] Fluconazole [Diflucan] 200 mg PO DAILY #7 tab 12/30/19 [Rx] Loratadine-Pseudoeph 5-120 mg [Claritin-D 12 Hour] 1 each PO Q12HR #14 tab.er.12h 12/30/19 [Rx] amLODIPine [Norvasc] 5 mg PO DAILY #30 tab 12/30/19 [Rx] predniSONE 10 mg PO DAILY #30 tab 12/30/19 [Rx] Follow up Appointment(s)/Referral(s): Rody Liz MD [STAFF PHYSICIAN] - 01/15/20 8:30 am Gerald Nguyen MD [Primary Care Provider] - 01/02/20 10:00 am [facility], [NON-STAFF] - Patient Instructions/Handouts: Acute Bronchitis (GEN), Level 3 National Dysphagia Diet (DC) Discharge Disposition: HOME WITH HOME HEALTH SERVICES
--- NOTE | 2020-01-01 11:20 | CDI ---
Documentation Clarification Form Date: 01/01/20 From: Aretha Veloz CCS Phone: If you have a question about this query, please contact Jerilyn Vargas, [place] Weaver at [phone] between 8am and 5pm. Admit Date: 12/25/19 Discharge Date: 12/30/19 Patient Name: Seth Molina Visit Number: [id number] ATTENTION: The Clinical Documentation Specialists (CDI) and [facility] Coding Staff appreciate your assistance in clarifying documentation. Please respond to the clarification below the line at the bottom and electronically sign. The CDI & [facility] Coding staff will review the response and follow-up if needed. Please note: Queries are made part of the Legal Health Record. If you have any questions, please contact the author of this message via ITS. Dear Dr. Irby, Pneumonia is documented in ED, PNs, H&P, DS. Bronchial washings are positive for candidia albicans History/Risk Factors: COPD w/ exac, Acute bronchitis, GERD, HX throat CA, CAD Clinical Indicators: Congested, Cough Vital signs: BP 95/63, Temp 97.7, RR 18, DC 85, O2 Sat 96 C X-ray: 1.MILD BRONCHIECTATIC CHANGE IN THE UPPER LOBES BILATERALLY. 2.EVIDENCE OF OLD GRANULOMATOUS DISEASE. 3.AT LEAST 2 AREAS OF GROUNDGLASS OPACITY WHICH MAY REPRESENT EARLY PNEUMONIA. Treatment: Rocephin 1 gm IVPB Q24HR, Diflucan-NS 100 mg IVPB daily, Zithromax 500 mg PO daily O2: Nasal cannula 2 lpm Breathing Tx: Hand nebulizer In order to capture the severity of condition, please clarify if the condition signifies and you are treating for: Bacterial Pneumonia, specify causal organism (if known) Pneumonia due to marcus Other bacteria (please specify) Viral Pneumonia, specify casual organism (if known) Other, please specify Unable to determine Bacterial pneumonia, suspect gram-negative organism MTDD
== END 2019-12-30 14:44 | disposition home health service (06) | DRG 178 ==
LOC: EC 09:47 → 6NMEDSUR 13:42 → OBSVTOIN 12-25 09:17
PROVIDERS: ADMIT Hospitalist; ATTEND Hospitalist
PROC: 0BD88ZX Extraction of Left Upper Lobe Bronchus, Via Natural or Artificial Opening Endoscopic, Diagnostic (ICD-10-PCS; principal; 2019-12-26 08:00)
PROC: 0B9H8ZX Drainage of Lung Lingula, Via Natural or Artificial Opening Endoscopic, Diagnostic (ICD-10-PCS; principal; 2019-12-26 08:00)
PROC: 0BDB8ZX Extraction of Left Lower Lobe Bronchus, Via Natural or Artificial Opening Endoscopic, Diagnostic (ICD-10-PCS; principal; 2019-12-26 08:00)
PROC: 0BD48ZX Extraction of Right Upper Lobe Bronchus, Via Natural or Artificial Opening Endoscopic, Diagnostic (ICD-10-PCS; principal; 2019-12-26 08:00)
PROC: 0B9M8ZX Drainage of Bilateral Lungs, Via Natural or Artificial Opening Endoscopic, Diagnostic (ICD-10-PCS; principal; 2019-12-26 08:00)
PROC: 0BD58ZX Extraction of Right Middle Lobe Bronchus, Via Natural or Artificial Opening Endoscopic, Diagnostic (ICD-10-PCS; principal; 2019-12-26 08:00)
PROC: 0BD68ZX Extraction of Right Lower Lobe Bronchus, Via Natural or Artificial Opening Endoscopic, Diagnostic (ICD-10-PCS; principal; 2019-12-26 08:00)
PROC: 0BD98ZX Extraction of Lingula Bronchus, Via Natural or Artificial Opening Endoscopic, Diagnostic (ICD-10-PCS; principal; 2019-12-26 08:00)
DX: J15.6 Pneumonia due to other Gram-negative bacteria (principal); J44.0 Chronic obstructive pulmonary disease with (acute) lower respiratory infection; J44.1 Chronic obstructive pulmonary disease with (acute) exacerbation; J39.8 Other specified diseases of upper respiratory tract; J20.9 Acute bronchitis, unspecified; K21.9 Gastro-esophageal reflux disease without esophagitis; I10 Essential (primary) hypertension; E78.5 Hyperlipidemia, unspecified; I25.10 Atherosclerotic heart disease of native coronary artery without angina pectoris; M06.9 Rheumatoid arthritis, unspecified; N42.9 Disorder of prostate, unspecified; T17.208A Unspecified foreign body in pharynx causing other injury, initial encounter; I25.2 Old myocardial infarction; Z79.82 Long term (current) use of aspirin; Z79.899 Other long term (current) drug therapy; Z85.819 Personal history of malignant neoplasm of unspecified site of lip, oral cavity, and pharynx; Z95.5 Presence of coronary angioplasty implant and graft; Z92.3 Personal history of irradiation; Z98.890 Other specified postprocedural states; Z95.828 Presence of other vascular implants and grafts; Z88.5 Allergy status to narcotic agent; Z82.49 Family history of ischemic heart disease and other diseases of the circulatory system
CPT/HCPCS: 31624; 36415; 71046; 71250; 80048; 80053; 83605; 83735; 83880; 84145; 84484; 85025; 85610; 85730; 87040; 87070; 87102; 87116; 87205; 87206; 87252; 87496; 87498; 87502; 87529; 87634; 87798; 88108; 88304; 88305; 88312; 89050; 93005; 94640; 94760; 96365; 96375; 99285

== ENCOUNTER 2021-04-03 21:58 | Inpatient (IN) | payer MEDICARE, BC ==
[2021-04-03] MEDS ORDERED: SODIUM CHLORIDE 0.9% 1,000 ML IV STA (22:05)
--- NOTE | 2021-04-03 22:06 | ED ---
Chest Pain HPI - General Stated Complaint: Chest Pain Time Seen by Provider: 04/03/21 22:02 Source: RN notes reviewed, old records reviewed Limitations: no limitations - History of Present Illness Initial Comments: This is a 75-year-old male DF for evaluation patient Dese for evaluation of chest pain. Anterior chest pain with nausea. Patient has chest pain burning across entire chest that started this morning with elevated blood pressure. A she does have history of heart disease patient does have history of TN high blood pressure high cholesterol this patient is accepted as a transfer patient from [facility] for chest pain is just follow with cardiology here Complaint: chest pain -: hour(s) Onset: during rest, during exertion Pain Location: substernal Pain Radiation: none Severity: moderate Severity scale (1-10): 5 Quality: tightness, heaviness Consistency: constant Improves With: nothing Worsens With: nothing Context: other (none) Anginal Symptoms: nausea, sense of impending doom Other Symptoms: palpitations Treatments Prior to Arrival: none - Related Data Home Medications Medication Instructions Recorded Confirmed Pravastatin Sodium [Pravachol] 40 mg PO HS 08/26/18 04/03/21 Albuterol Nebulized [Ventolin 2.5 mg INHALATION RT-TID PRN 12/23/19 04/03/21 Nebulized] Aspirin EC [Ecotrin] 325 mg PO DAILY 04/03/21 04/03/21 Famotidine 20 mg PO DAILY 04/03/21 04/03/21 Allergies Allergy/AdvReac Type Severity Reaction Status Date / Time morphine AdvReac Confusion Verified 04/03/21 22:46 Review of Systems ROS Statement: Those systems with pertinent positive or pertinent negative responses have been documented in the HPI. ROS Other: All systems not noted in ROS Statement are negative. EKG Findings - EKG Comments: EKG Findings:: EKG is sinus rhythm 76 LA 1:30 QRS 96 QTc 440 Past Medical History Past Medical History: GERD/Reflux, Hyperlipidemia, Hypertension, Myocardial Infarction (TN), Prostate Disorder, Rheumatoid Arthritis (RA) Additional Past Medical History / Comment(s): Cancer of head, neck, throat- resolved, had in 1999 did receive radiation, hypotension (BP fluctuates a lot), Last Myocardial Infarction Date:: 10-29-01 History of Any Multi-Drug Resistant Organisms: None Reported Past Surgical History: Heart Catheterization With Stent Additional Past Surgical History / Comment(s): had a carotid stent placed during CA treatment. 42 lymph nodes removed. Date of Last Stent Placement:: 10-29-01 Past Psychological History: No Psychological Hx Reported Past Alcohol Use History: None Reported Past Drug Use History: None Reported - Past Family History Father Additional Family Medical History / Comment(s): heart disease Mother Additional Family Medical History / Comment(s): heart disease General Exam General appearance: alert, in no apparent distress Head exam: Present: atraumatic, normocephalic, normal inspection Eye exam: Present: normal appearance, PERRL, EOMI. Absent: scleral icterus, conjunctival injection, periorbital swelling ENT exam: Present: normal exam, mucous membranes moist Neck exam: Present: normal inspection. Absent: tenderness, meningismus, lymphadenopathy Respiratory exam: Present: normal lung sounds bilaterally. Absent: respiratory distress, wheezes, rales, rhonchi, stridor Cardiovascular Exam: Present: regular rate, normal rhythm, normal heart sounds. Absent: systolic murmur, diastolic murmur, rubs, gallop, clicks GI/Abdominal exam: Present: soft, normal bowel sounds. Absent: distended, tenderness, guarding, rebound, rigid Extremities exam: Present: normal inspection, full ROM, normal capillary refill. Absent: tenderness, pedal edema, joint swelling, calf tenderness Back exam: Present: normal inspection Neurological exam: Present: alert, oriented X3, CN II-XII intact Psychiatric exam: Present: normal affect, normal mood Skin exam: Present: warm, dry, intact, normal color. Absent: rash Course Vital Signs 04/03/21 22:12 Temperature 97.6 F Pulse Rate 86 Respiratory 16 Rate Blood Pressure 151/112 O2 Sat by Pulse 100 Oximetry - Reevaluation(s) Reevaluation #1: 04/03/21 22:35 Medical records reviewed Reevaluation #2: 04/03/21 23:57 Patient is without chest pain currently Reevaluation #3: 04/03/21 23:57 Patient informed results questions answered - Consultations Consultation #1: Spoke with PMH were agreeable with the patient Chest Pain MDM - MDM 75 male DF for evaluation elevated troponin or chest pain. History of heart disease coming in for non-ST elevated TN. EKG shows no changes. Troponin elevated at 0.14 Critical Care Time Critical Care Time: Yes Total Critical Care Time: 31 Disposition Clinical Impression: Acute non-ST elevation myocardial infarction (NSTEMI) Disposition: ADMITTED IP TO THIS HOSP Condition: Serious Is patient prescribed a controlled substance at d/c from ED?: No Referrals: Gerald Nguyen MD [Primary Care Provider] - 1-2 days
[2021-04-03 23:22] LABS: Basophils # (A) 0.1 k/uL (0-0.2); Basophils % (A) 1 %; Eosinophils # (A) 0.4 k/uL (0-0.7); Eosinophils % (A) 5 %; HCT 37.9 % (39.0-53.0); HGB 13.1 gm/dL (13.0-17.5); Lymphocytes # (A) 1.1 k/uL (1.0-4.8); Lymphocytes % (A) 13 %; MCH 32.5 pg (25.0-35.0); MCHC 34.6 g/dL (31.0-37.0); MCV 94.1 fL (80.0-100.0); Mean Platelet Volume 7.3; Monocytes # (A) 0.4 k/uL (0-1.0); Monocytes % (A) 4 %; Neutrophils % (A) 75 %; Platelet Count 270 k/uL (150-450); RBC 4.03 m/uL (4.30-5.90); RDW 12.6 % (11.5-15.5)
[2021-04-03 23:33] LABS: Albumin 3.6 g/dL (3.5-5.0); Calcium 8.9 mg/dL (8.4-10.2); Magnesium 2.1 mg/dL (1.6-2.3); Potassium 4.3 mmol/L (3.5-5.1); Total Bilirubin 0.3 mg/dL (0.2-1.3); Total Protein 6.4 g/dL (6.3-8.2)
[2021-04-03 23:36] LABS: Prothrombin Time 10.7 sec (9.0-12.0)
[2021-04-03 23:52] LABS: Partial Thromboplastin Time 72.5 sec (22.0-30.0)
[2021-04-03] MEDS ORDERED: NITROGLYCERIN SL TABS 0.4 MG TAB SUBLINGUAL PRN (23:55)
[2021-04-04] MEDS: HEPARIN SOD,PORK IN 0.45% NACL 25,000 UNIT in 0.45% NACL 1 250ML.BAG IV SCH (00:45)
[2021-04-04] MEDS ORDERED: ACETAMINOPHEN TAB 325 MG TAB PO STA (06:24)
[2021-04-04] MEDS ORDERED: HEPARIN SODIUM,PORCINE/PF 5,000 UNIT/0.5 ML SYRINGE SQ ONE (06:51)
[2021-04-04] MEDS ORDERED: HEPARIN SODIUM 1,000 UN/ML (10ML VL) IVP STA (06:52)
[2021-04-04] MEDS: ASPIRIN 81 MG PO SCH (09:00)
[2021-04-04] MEDS ORDERED: ASPIRIN 325 MG TAB PO SCH (09:00)
[2021-04-04] MEDS ORDERED: ALPRAZolam 0.25 MG TAB PO PRN (09:29)
[2021-04-04] MEDS ORDERED: ASPIRIN 325 MG TAB PO STA (09:29)
[2021-04-04] MEDS ORDERED: ALPRAZolam 0.5 MG TAB PO PRN (09:29)
[2021-04-04] MEDS ORDERED: NITROGLYCERIN SL TABS 0.4 MG TAB SUBLINGUAL PRN ×2 (09:29→19:28)
[2021-04-04] MEDS ORDERED: ATORVASTATIN 80 MG TAB PO STA (09:29)
[2021-04-04] MEDS ORDERED: SODIUM CHLORIDE 0.9% 1,000 ML in EMPTY BAG 1 BAG IV ONE (09:29)
[2021-04-04] MEDS: METOPROLOL TARTRATE 25 MG TAB PO SCH ×2 (09:40→21:00)
[2021-04-04] MEDS ORDERED: IV FLUID CONTINUATION 1,000 ML IV ONE (10:00)
[2021-04-04] MEDS ORDERED: fentaNYL (PF) 50 MCG/ML 2 ML AMP IV ONE (10:30)
[2021-04-04] MEDS ORDERED: MIDAZOLAM 2 MG/2 ML VIAL IV ONE (10:30)
[2021-04-04] MEDS ORDERED: LIDOCAINE 1% INJ 10MG/ML (20 ML MDV) SQ ONE (10:30)
[2021-04-04] MEDS ORDERED: VERAPAMIL SYRINGE (5 MG/10 ML) INTRAARTER ONE ×2 (10:32→10:34)
[2021-04-04] MEDS ORDERED: TICAGRELOR 90 MG TAB PO ONE (10:49)
[2021-04-04] MEDS ORDERED: IOPAMIDOL-370 125ML BTL INJ ONE (11:03)
[2021-04-04] MEDS ORDERED: NOREPINEPHRINE 4 MG in SODIUM CHLORIDE 0.9% 250 ML IV ONE (11:11)
[2021-04-04] MEDS ORDERED: SODIUM CHLORIDE 0.9% 1,000 ML IV ONE (11:53)
[2021-04-04] MEDS ORDERED: NITROGLYCERIN-D5W PMX 50 MG in DEXTROSE/WATER 1 250ML.BAG IV ONE (11:56)
[2021-04-04] MEDS ORDERED: SODIUM CHLORIDE 0.9% 1,000 ML IV SCH (11:58)
--- NOTE | 2021-04-04 12:00 | ECHOF ---
Referral Reason:elevTrop MEASUREMENTS -------- HEIGHT: 170.2 cm WEIGHT: 65.8 kg BP: 122/72 IVSd: 1.5 cm (0.6 - 1.1) LVIDd: 3.3 cm (3.9 - 5.3) LVPWd: 1.7 cm (0.6 - 1.1) IVSs: 1.4 cm LVIDs: 1.6 cm LVPWs: 2.1 cm LAESV Index (A-L): 17.80 ml/m Ao Diam: 3.3 cm (2.0 - 3.7) AV Cusp: 2.0 cm (1.5 - 2.6) MV E Sajan: 0.45 m/s MV DecT: 192 ms MV A Sajan: 0.80 m/s MV E/A Ratio: 0.56 FINDINGS -------- Sinus rhythm. This was a technically difficult study with suboptimal views. The left ventricular size is normal. There is moderate concentric left ventricular hypertrophy. O verall left ventricular systolic function is moderately impaired with, an EF between 35 - 40 %. Api sonya anterior LV wall motion is hypokinetic. Apical lateral LV wall motion is hypokinetic. Apica l inferior LV wall motion is hypokinetic. Apical septum LV wall motion is hypokinetic. Mchenry Hyp okinesis. The right ventricle is normal in size. Normal LA size by volume 22+/-6 ml/m2. The right atrial size is normal. 5.0mg of Lumason was utilized for enhancement of images Interatrial and interventricular septum intact. Trace amount of aortic regurgitation. There is no evidence of aortic stenosis. There is trace to mild mitral regurgitation. Mild tricuspid regurgitation present. There is no evidence of pulmonary hypertension. The right v entricular systolic pressure, as measured by Doppler, is {RVSP}. There is no pulmonic regurgitation present. The aortic root size is normal. IVC Not well visulized. There is no pericardial effusion. CONCLUSIONS -------- 1. The left ventricular size is normal. 2. There is moderate concentric left ventricular hypertrophy. 3. Overall left ventricular systolic function is moderately impaired with, an EF between 35 - 40 %. 4. Apical anterior LV wall motion is hypokinetic. 5. Apical lateral LV wall motion is hypokinetic. 6. Apical inferior LV wall motion is hypokinetic. 7. Apical septum LV wall motion is hypokinetic. 8. Mchenry Hypokinesis. 9. Trace amount of aortic regurgitation. 10. There is trace to mild mitral regurgitation. 11. Mild tricuspid regurgitation present. POLYETHYLENE BAG MACHINE OPERATOR: Hailee Benavides RDCS
--- NOTE | 2021-04-04 12:10 | P.CRDCN ---
History of Present Illness Consult date: 04/04/21 History of present illness: HISTORY OF PRESENT ILLNESS: This is a 75-year-old male with a past medical history significant for hypertension, hyperlipidemia, carotid stenosis, and coronary artery disease with previous stenting to the LAD in 2004. Patient follows in the office with Dr. Griffin. We have been asked to see the patient in consultation for chest pain. Patient examined at the bedside this morning in the emergency room. Patient states he developed chest pain yesterday around noon. He states he was not doing anything at the time except sitting at home. He reports the pain was in the middle of his chest and felt like a burning sensation. He states the pain went down both of his arms. He denies any shortness of breath. He denies any nausea or vomiting. He states the pain lasted for approximately 2 hours. He went to [facility] for evaluation and was transferred to [facility] for further evaluation. Patient states he received sublingual nitro in route to the hospital via EMS which relieved his chest pain. He states he has had no further episodes of chest pain since coming to the hospital. EKG reveals sinus mechanism with T-wave inversions in V2 through V4 Laboratory data: WBC 8.0. Hemoglobin 13.1. Platelet count 270. Sodium 137. Potassium 4.3. BUN 29. Creatinine 1.17. Magnesium 2.1. BNP 484. Troponin 0.141. 0.250. Current home cardiac medications include aspirin 325 mg daily and pravastatin 40 mg daily Echocardiogram completed revealed ejection fraction 35-40%, apical anterior lateral inferior and septal wall hypokinesis, trace aortic regurgitation, trace to mild mitral regurgitation, and mild tricuspid regurgitation REVIEW OF SYSTEMS: At the time of my exam: CONSTITUTIONAL: Denies fever or chills. HEENT: Denies blurred vision, vision changes, or eye pain. Denies hemoptysis CARDIOVASCULAR: Denies chest pain. Denies orthopnea. Denies PND. Denies palpitations RESPIRATORY: Denies shortness of breath. GASTROINTESTINAL: Denies abdominal pain. Denies nausea or vomiting. HEMATOLOGIC: Denies bleeding disorders. GENITOURINARY: Denies any blood in urine. SKIN: Denies pruitis. Denies rash. PHYSICAL EXAM: VITAL SIGNS: Reviewed. GENERAL: Well-developed in no acute distress. HEENT: Head is normocephalic. Pupils are equal, round. Sclerae anicteric. Mucous membranes of the mouth are moist. Neck supple. No JVD or thyromegaly LUNGS: Respirations even and unlabored. Lungs essentially clear to auscultation bilaterally. HEART: Regular rate and rhythm. S1 and S2 heard. ABDOMEN: Soft. Nondistended. Nontender. EXTREMITIES: Normal range of motion. No clubbing or cyanosis. Peripheral pulses intact. No lower extremity edema NEUROLOGIC: Awake and alert. Oriented x 3. ASSESSMENT: Non-STEMI Hypertension Hyperlipidemia Coronary artery disease with previous PCI to LAD, 2004 Ischemic cardiomyopathy, EF 35-40% PLAN: Continue current cardiac medications Begin metoprolol tartrate 25 mg twice a day Begin lisinopril 10 mg daily for optimal blood pressure control Continue aspirin and statin Patient to undergo cardiac catheterization today with Dr. Cheney as Dr. Griffin is unavailable this morning Further recommendations pending patient course Nurse practitioner note has been reviewed by physician. Signing provider agrees with the documented findings, assessment, and plan of care. 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 42 lymph nodes removed. Date of Last Stent Placement:: 10-29-01 Past Psychological History: No Psychological Hx Reported Past Alcohol Use History: None Reported Past Drug Use History: None Reported - Past Family History Father Additional Family Medical History / Comment(s): heart disease Mother Additional Family Medical History / Comment(s): heart disease Medications and Allergies Home Medications Medication Instructions Recorded Confirmed Type Pravastatin Sodium [Pravachol] 40 mg PO HS 08/26/18 04/03/21 History Albuterol Nebulized [Ventolin 2.5 mg INHALATION RT-TID PRN 12/23/19 04/03/21 History Nebulized] Aspirin EC [Ecotrin] 325 mg PO DAILY 04/03/21 04/03/21 History Famotidine 20 mg PO DAILY 04/03/21 04/03/21 History Allergies Allergy/AdvReac Type Severity Reaction Status Date / Time morphine AdvReac Confusion Verified 04/03/21 22:46 Physical Exam Vitals: Vital Signs Temp Pulse Resp BP Pulse Ox 04/04/21 09:42 85 16 167/114 99 04/04/21 08:03 97.1 F L 78 16 150/100 100 04/04/21 06:00 86 18 122/72 97 04/04/21 03:00 84 20 121/84 97 04/04/21 00:16 86 18 123/90 98 04/03/21 22:12 97.6 F 86 16 151/112 100 Intake and Output 04/03/21 04/04/21 04/04/21 22:59 06:59 14:59 Intake Total 49.2 800 Balance 49.2 800 Intake: IV 800 Intake, IV Titration 49.2 Amount Heparin Sod,Pork in 0.45% 49.2 NaCl 25,000 unit In 0.45 % NaCl 1 250ml.bag @ 12 UNITS/KG/HR 7.893 mls/hr IV .Q24H [facility] Rx#: [id number] Other: Weight 65.771 kg Results 04/03/21 23:03 04/03/21 23:03 Cardiac Enzymes 04/03/21 04/03/21 04/04/21 Range/Units 23:03 23:03 05:30 AST 20 (17-59) U/L Troponin I 0.141 H* 0.250 H* (0.000-0.034) ng/mL Coagulation 04/03/21 04/04/21 Range/Units 23:03 05:30 PT 10.7 (9.0-12.0) sec APTT 72.5 H 39.0 H (22.0-30.0) sec CBC 04/03/21 Range/Units 23:03 WBC 8.0 (3.8-10.6) k/uL RBC 4.03 L (4.30-5.90) m/uL Hgb 13.1 (13.0-17.5) gm/dL Hct 37.9 L (39.0-53.0) % Plt Count 270 (150-450) k/uL Comprehensive Metabolic Panel 04/03/21 Range/Units 23:03 Sodium 137 (137-145) mmol/L Potassium 4.3 (3.5-5.1) mmol/L Chloride 106 (98-107) mmol/L Carbon Dioxide 26 (22-30) mmol/L BUN 29 H (9-20) mg/dL Creatinine 1.17 (0.66-1.25) mg/dL Glucose 112 H (74-99) mg/dL Calcium 8.9 (8.4-10.2) mg/dL AST 20 (17-59) U/L ALT 10 (4-49) U/L Alkaline Phosphatase 65 (38-126) U/L Total Protein 6.4 (6.3-8.2) g/dL Albumin 3.6 (3.5-5.0) g/dL Current Medications Generic Name Dose Route Start Last Admin Trade Name Freq PRN Reason Stop Dose Admin Alprazolam 0.25 mg 04/04/21 09:29 Alprazolam 0.25 Mg Tab PO Q6HR PRN Mild Anxiety Alprazolam 0.5 mg 04/04/21 09:29 Alprazolam 0.5 Mg Tab PO Q6HR PRN Moderate Anxiety Aspirin 81 mg 04/04/21 09:00 04/04/21 09:00 Aspirin 81 Mg PO Not Given DAILY SHARRI Atorvastatin Calcium 80 mg 04/04/21 21:00 04/04/21 09:33 Atorvastatin 80 Mg Tab PO Not Given HS SHARRI Heparin Sodium/Sodium Chloride 250 mls @ 7.893 mls/hr 04/03/21 23:45 04/04/21 06:59 25,000 unit/ Sodium Chloride IV 14 units/kg/hr .Q24H SHARRI 9.208 mls/hr Titration Protocol 12 UNITS/KG/HR Sodium Chloride 1,000 ml/ IV 1,000 mls @ 65.771 mls/hr 04/04/21 09:29 Solution IV 04/05/21 00:41 .[id number] ONE 1 ML/KG/HR Heparin Sodium (Porcine) 10, 1,001 mls @ 999 mls/hr 04/05/21 07:00 000 unit/ Sodium Chloride IRRIGATION 04/05/21 23:00 ONCE PRN INTRA-OP Heparin Sodium (Porcine) 2,500 250.5 mls @ 250 mls/hr 04/05/21 07:00 unit/ Sodium Chloride IRRIGATION 04/05/21 23:00 ONCE PRN INTRA-OP Metoprolol Tartrate 25 mg 04/04/21 09:00 04/04/21 09:40 Metoprolol Tartrate 25 Mg Tab PO 25 mg BID SHARRI Administration Nitroglycerin 0.4 mg 04/03/21 23:55 Nitroglycerin Sl Tabs 0.4 Mg Tab SUBLINGUAL Q5M PRN Chest Pain Nitroglycerin 0.4 mg 04/04/21 09:29 Nitroglycerin Sl Tabs 0.4 Mg Tab SUBLINGUAL Q5M PRN Chest Pain Intake and Output 04/03/21 04/04/21 04/04/21 22:59 06:59 14:59 Intake Total 49.2 800 Balance 49.2 800 Intake: IV 800 Intake, IV Titration 49.2 Amount Heparin Sod,Pork in 0.45% 49.2 NaCl 25,000 unit In 0.45 % NaCl 1 250ml.bag @ 12 UNITS/KG/HR 7.893 mls/hr IV .Q24H [facility] Rx#: [id number] Other: Weight 65.771 kg 04/03/21 23:03 04/03/21 23:03
[2021-04-04 12:23] LABS: Chol/HDL Ratio 3.27; LDL Cholesterol,Calculated 98.2 mg/dL (0.0-131.0); VLDL Calculation 12.8 mg/dL (5.00-40.00)
[2021-04-04] MEDS ORDERED: ACETAMINOPHEN TAB 325 MG TAB ONE (13:25)
[2021-04-04] MEDS: lisinopriL 10 MG TAB PO SCH (15:21)
[2021-04-04] MEDS ORDERED: ZOLPIDEM 5 MG TAB PO PRN (19:28)
[2021-04-04] MEDS ORDERED: RX INFO: IV CONTRAST WAS GIVEN 1 EACH MISC MISCELLANE PRN (19:28)
[2021-04-04] MEDS ORDERED: ATROPINE SULFATE 0.1 MG/ML 10ML SYRINGE IV PRN (19:28)
[2021-04-04] MEDS ORDERED: MAG HYDROX/AL HYDROX/SIMETH 30 ML CUP PO PRN (19:28)
[2021-04-04] MEDS ORDERED: PRAVASTATIN SODIUM 40 MG TAB PO SCH (21:00)
[2021-04-04] MEDS ORDERED: ATORVASTATIN 80 MG TAB PO SCH (21:00)
[2021-04-04] MEDS: TICAGRELOR 90 MG TAB PO SCH (21:00)
--- NOTE | 2021-04-04 22:07 | P.PRCINT ---
Percutaneous Coronary Int. - Percutaneous Coronary Intervention Percutaneous Coronary Intervention: PROCEDURES PERFORMED: Left heart catheterization, bilateral coronary angiography, PCI mid LAD with a 3.5 x 12mm Xience JERI, PCI of mid to distal LAD with a 2.5 x 15mm Xience JERI, IVUS LAD, Penumbra aspiration thrombectomy LAD INDICATION: NSTEMI HISTORY: Patient is a pleasant 75-year-old male with history of hypertension, hyperlipidemia, coronary artery disease status post PCI of LAD in 2004 who presents with chest pain over the last 2 days improved with nitroglycerin associated with shortness breath and diaphoresis. He was found to have mildly elevated troponins and therefore heart catheterization was recommended. CONSENT:I have discussed the risks, benefits and alternative therapies for the above-mentioned procedure and for both sedation/analgesia as well as necessary blood product administration, if indicated, as they pertain to this patient. The patient has indicated understanding and acceptance of the risks and procedures discussed. PROCEDURE: After the risks, benefits and alternatives of the above mentioned procedure explained in detail with the patient, informed consent was obtained. Patient was taken to the catheterization lab and prepped and draped in usual fashion. 1% lidocaine was used to anesthetize the right radial artery. A 6- Gibraltarian sheath was placed in the right radial artery using modified Seldinger technique. Left coronary angiography was performed with a 5-Gibraltarian JL 3.5 catheter and right coronary angiography was performed with a 5-Gibraltarian JR5 catheter in various views. A 5-Gibraltarian FR5 catheter was inserted into the left ventricle and pressure measurements were obtained. Next, the decision was made to perform PCI of the mid and mid to distal LAD. Heparin was given for an ACT greater than 250. A 6 Fr CLS 3.5 guide catheter was used to engage the left main. A 0.014 BMW wire was easily passed into the distal LAD. Due to heavy thrombus burden, Penumbra aspiration thrombectomy was performed. Next predilation was performed of the mid to distal LAD lesion with a 2.25 x 12 mm balloon. Next a 2.5 x 15 mm Xience JERI was placed in the mid to distal LAD lesion. The proximal portion of the stent was postdilated with a 2.5 x 8 mm noncompliant balloon. Preintervention there was 95% stenosis with SONIA 3 flow and postintervention there was less than 10% stenosis with SONIA 3 flow and no dissection. Next primary stenting was performed of the more proximal, mid LAD lesion with a 3.5 x 12 mm Xience JERI. Patient did have some hypotension during stenting however this improved with vasopressors and was only temporary. IVUS was performed which showed excellent stent apposition, no dissection. . Intervention there was 90% mid LAD stenosis and SONIA-3 flow and postintervention there was less than 10% stenosis with SONIA 3 flow and no dissection. Patient to lerated the procedure well. The right radial sheath was removed and a TR band was placed with hemostasis achieved. The patient tolerated the procedure well. Patient was transported back to the post catheterization holding area in stable condition. Conscious Sedation: Patient was monitored under the direct supervision of vision of myself for conscious sedation using Versed and fentanyl for a total duration of 78 minutes HEMODYNAMICS: Ao: 134/78 LV: 138/2, LVEDP 6mmHg SELECTIVE CORONARY ARTERIOGRAPHY: LEFT MAIN: The left main is a large caliber vessel which bifurcates into the LAD and circumflex. There is no significant stenosis. LEFT ANTERIOR DESCENDING CORONARY ARTERY: LAD is a large caliber vessel which wraps around to the apex. There is a "high" diagonal 1 branch without sig nificant stenosis. There is a mid LAD 90% stenosis followed by a mid to distal LAD 95% stenosis. There is a distal LAD stent which is patent. LEFT CIRCUMFLEX CORONARY ARTERY: Left circumflex is a moderate caliber vessel. There is a mid 30% stenosis and it gives off a large caliber OM1 which bifurcates and a small caliber OM2 which are both normal. RIGHT CORONARY ARTERY: The right coronary artery is a moderate caliber vessel which gives off a PDA and PLV branch and is the dominant vessel. There is no significant stenosis. FINAL IMPRESSION: 1. CAD as described above with tandem 90%, 95% mid LAD lesions s/p PCI with 3.5 x 12mm and 2.5 x 15mm Xience JERI. 2. Low normal left sided filling pressures PLAN: 1. Aggressive risk factor modification per most recent ACC/AHA guidelines. 2. Continue dual antiplatelets for 12 months.
--- NOTE | 2021-04-05 00:59 | P.HPIM ---
History of Present Illness H&P Date: 04/04/21 Chief Complaint: Chest Pain Patient is a 75-year-old male with a known history of hypertension, hyperlipidemia, history of AL, coronary artery disease history of stent placeme nt in 2004, history of head and neck cancer status post radiation presents to hospital due to complaints of chest pain. Patient states that he was at home yesterday evening and suddenly started having mid retrosternal sharp chest pain. He also felt heaviness in bilateral upper extremities. Denied any associated shortness of breath. No nausea vomiting or diaphoresis. Patient was given nitroglycerin sublingual by EMS and which seemed to relieve his pain. Pain lasted for about 2 hours. Patient was initially seen at [facility] in eventually transferred to [facility] for evaluation. EKG showed normal sinus rhythm with T inversions in the anterior leads. Laboratory data showed troponin 0 0.141, 0.250 LDL 98 Coronavirus PCR not detected BUN 29 creatinine 1.17, sodium 137 potassium 4.3 chloride 106 and bicarb is 26. Past Medical History Past Medical History: GERD/Reflux, Hyperlipidemia, Hypertension, Myocardial Infarction ([place]), Prostate Disorder, Rheumatoid Arthritis ([place]) Additional Past Medical History / Comment(s): Cancer of head, neck, throat- resolved, had in 1999 did receive radiation, hypotension (BP fluctuates a lot), Last Myocardial Infarction Date:: 10-29-01 History of Any Multi-Drug Resistant Organisms: None Reported Past Surgical History: Heart Catheterization With Stent Additional Past Surgical History / Comment(s): had a carotid stent placed during CA treatment. 42 lymph nodes removed. Date of Last Stent Placement:: 10-29-01 Past Psychological History: No Psychological Hx Reported Past Alcohol Use History: None Reported Past Drug Use History: None Reported - Past Family History Father Additional Family Medical History / Comment(s): heart disease Mother Additional Family Medical History / Comment(s): heart disease Medications and Allergies Home Medications Medication Instructions Recorded Confirmed Type Pravastatin Sodium [Pravachol] 40 mg PO HS 08/26/18 04/03/21 History Albuterol Nebulized [Ventolin 2.5 mg INHALATION RT-TID PRN 12/23/19 04/03/21 History Nebulized] Aspirin EC [Ecotrin] 325 mg PO DAILY 04/03/21 04/03/21 History Famotidine 20 mg PO DAILY 04/03/21 04/03/21 History Allergies Allergy/AdvReac Type Severity Reaction Status Date / Time morphine AdvReac Confusion Verified 04/03/21 22:46 Physical Exam Vitals: Vital Signs Temp Pulse Resp BP Pulse Ox 04/04/21 09:42 85 16 167/114 99 04/04/21 08:03 97.1 F L 78 16 150/100 100 04/04/21 06:00 86 18 122/72 97 04/04/21 03:00 84 20 121/84 97 04/04/21 00:16 86 18 123/90 98 04/03/21 22:12 97.6 F 86 16 151/112 100 Intake and Output 04/03/21 04/04/21 04/04/21 22:59 06:59 14:59 Intake Total 49.2 Balance 49.2 Intake: Intake, IV Titration 49.2 Amount Heparin Sod,Pork in 0.45% 49.2 NaCl 25,000 unit In 0.45 % NaCl 1 250ml.bag @ 12 UNITS/KG/HR 7.893 mls/hr IV .Q24H [facility] Rx#: [id number] Other: Weight 65.771 kg PHYSICAL EXAMINATION: Patient is lying in the bed comfortably, no acute distress, awake alert and orie nted.. HEENT: Normocephalic. Neck is supple. Pupils reactive. Nostrils clear. Oral cavity is moist. Ears reveal no drainage. Neck reveals no JVD, carotid bruits, or thyromegaly. CHEST EXAMINATION: Trachea is central. Symmetrical expansion. Lung vega clear to auscultation and percussion. CARDIAC: Normal S1, S2 with no gallops. No murmurs ABDOMEN: Soft. Bowel sounds normal. No organomegaly. No abdominal bruits. Extremities: reveal no edema. No clubbing or cyanosis Neurologically awake, alert, oriented x3 with well-coordinated movements. No focal deficits noted Skin: No rash or skin lesions. Psychiatric: Coperative. Nonsuicidal Musculoskeletal: No joint swelling or deformity. Normal range of motion. Results CBC & Chem 7: 04/03/21 23:03 04/03/21 23:03 Labs: Abnormal Lab Results - Last 24 Hours (Table) 06/06/21 06/06/21 06/06/21 Range/Units 23:03 23:03 23:03 RBC 4.03 L (4.30-5.90) m/uL Hct 37.9 L (39.0-53.0) % APTT 72.5 H (22.0-30.0) sec BUN 29 H (9-20) mg/dL Glucose 112 H (74-99) mg/dL Troponin I (0.000-0.034) ng/mL 04/03/21 04/04/21 04/04/21 Range/Units 23:03 05:30 05:30 RBC (4.30-5.90) m/uL Hct (39.0-53.0) % APTT 39.0 H (22.0-30.0) sec BUN (9-20) mg/dL Glucose (74-99) mg/dL Troponin I 0.141 H* 0.250 H* (0.000-0.034) ng/mL Thrombosis Risk Factor Assmnt - DVT/VTE Prophylaxis DVT/VTE Prophylaxis: Pharmacologic Prophylaxis ordered Assessment and Plan Assessment: Acute non-ST elevated AL Chest pain Coronary disease history of stent placement to LAD in 2004 History of AL Ischemic cardiomyopathy ejection fraction 35 to 40% Hypertension Hyperlipidemia History of head and neck cancer status post radiation DVT prophylaxis. Plan: Patient will be continued on telemetry monitoring. Continue with heparin drip. Currently patient is status post cardiac catheterization and stent placement. Continue with aspirin, Brilinta, statins and metoprolol. Cardiology is on board. No complaints of chest pain at this time. Was started on nitro drip due to chest pain. Patient was also complaining of mild headache. Continue to monitor closely. Further recommendations based on clinical course. Time with Patient: Greater than 30
[2021-04-05] MEDS: HEPARIN SOD,PORK IN 0.45% NACL 25,000 UNIT in 0.45% NACL 1 250ML.BAG IV SCH (04:56)
[2021-04-05] MEDS ORDERED: HEPARIN SODIUM,PORCINE 10,000 UNIT in SODIUM CHLORIDE 0.9% 1,000 ML IRRIGATION PRN (07:00)
[2021-04-05] MEDS ORDERED: HEPARIN SODIUM,PORCINE 2,500 UNIT in SODIUM CHLORIDE 0.9% 250 ML IRRIGATION PRN (07:00)
[2021-04-05 07:04] LABS: Basophils % (A) 1 %; Eosinophils # (A) 0.3 k/uL (0-0.7); Eosinophils % (A) 4 %; HCT 41.5 % (39.0-53.0); HGB 13.8 gm/dL (13.0-17.5); Lymphocytes # (A) 1.1 k/uL (1.0-4.8); Lymphocytes % (A) 13 %; MCH 31.6 pg (25.0-35.0); MCHC 33.2 g/dL (31.0-37.0); MCV 95.2 fL (80.0-100.0); Mean Platelet Volume 7.4; Monocytes # (A) 0.4 k/uL (0-1.0); Monocytes % (A) 5 %; Neutrophils % (A) 75 %; Platelet Count 301 k/uL (150-450); RBC 4.36 m/uL (4.30-5.90); RDW 12.7 % (11.5-15.5)
[2021-04-05 07:37] LABS: Calcium 8.9 mg/dL (8.4-10.2); Potassium 4.6 mmol/L (3.5-5.1)
[2021-04-05 08:09] VITALS: RESP 18
[2021-04-05] MEDS: METOPROLOL TARTRATE 25 MG TAB PO SCH (09:02)
[2021-04-05] MEDS: ASPIRIN 81 MG PO SCH (09:02)
[2021-04-05] MEDS: lisinopriL 10 MG TAB PO SCH (09:02)
[2021-04-05] MEDS: TICAGRELOR 90 MG TAB PO SCH (09:03)
[2021-04-05] MEDS ORDERED: ATORVASTATIN 40 MG TAB PO SCH (10:30)
[2021-04-05 10:34] VITALS: BMI 22.7
[2021-04-05 11:31] VITALS: BP 90/55; PULSE 70; TEMP 96.6
--- NOTE | 2021-04-05 11:36 | P.PN ---
<Dulce Sierra - Last Filed: 04/05/21 11:29> Subjective Progress Note Date: 04/05/21 HISTORY OF PRESENT ILLNESS: This is a 75-year-old male with a past medical history significant for hypertension, hyperlipidemia, carotid stenosis, and coronary artery disease with previous stenting to the LAD in 2004. Patient follows in the office with Dr. Griffin. We have been asked to see the patient in consultation for chest pain. Patient examined at the bedside this morning in the emergency room. Patient states he developed chest pain yesterday around noon. He states he was not doing anything at the time except sitting at home. He reports the pain was in the middle of his chest and felt like a burning sensation. He states the pain went down both of his arms. He denies any shortness of breath. He denies any nausea or vomiting. He states the pain lasted for approximately 2 hours. He went to [facility] for evaluation and was transferred to [facility] for further evaluation. Patient states he received sublingual nitro in route to the hospital via EMS which relieved his chest pain. He states he has had no further episodes of chest pain since coming to the hospital. EKG reveals sinus mechanism with T-wave inversions in V2 through V4 Laboratory data: WBC 8.0. Hemoglobin 13.1. Platelet count 270. Sodium 137. Potassium 4.3. BUN 29. Creatinine 1.17. Magnesium 2.1. BNP 484. Troponin 0.141. 0.250. Current home cardiac medications include aspirin 325 mg daily and pravastatin 40 mg daily Echocardiogram completed revealed ejection fraction 35-40%, apical anterior lateral inferior and septal wall hypokinesis, trace aortic regurgitation, trace to mild mitral regurgitation, and mild tricuspid regurgitation 04/05/2021 Patient examined this morning at the bedside. He is status post cardiac catheterization with Dr. Cheney with PCI to the LAD 2. Patient is sitting up in the chair this morning. He denies chest pain or pressure. He denies shortness of breath. He has been ambulating in his room. Vital signs are stable. PHYSICAL EXAM: VITAL SIGNS: Reviewed. GENERAL: Well-developed in no acute distress. HEENT: Head is normocephalic. Pupils are equal, round. Sclerae anicteric. Mucous membranes of the mouth are moist. Neck supple. No JVD or thyromegaly LUNGS: Respirations even and unlabored. Lungs essentially clear to auscultation bilaterally. HEART: Regular rate and rhythm. S1 and S2 heard. EXTREMITIES: Normal range of motion. No clubbing or cyanosis. Peripheral pulses intact. No lower extremity edema. Right radial cath site with pulse present. ASSESSMENT: Non-STEMI, status post PCI to LAD 2 Hypertension Hyperlipidemia Coronary artery disease with previous PCI to LAD, 2004 Ischemic cardiomyopathy, EF 35-40% PLAN: Continue current cardiac medications Patient is stable for discharge home today from a cardiac standpoint Patient is to follow up on an outpatient basis with Dr. Griffin Nurse practitioner note has been reviewed by physician. Signing provider agrees with the documented findings, assessment, and plan of care. Objective - Vital Signs Vital signs: Vital Signs Temp 98.4 F 04/05/21 08:00 Pulse 81 04/05/21 08:00 Resp 18 04/05/21 08:00 BP 117/63 04/05/21 10:07 Pulse Ox 100 04/05/21 08:00 Intake & Output 04/04/21 04/05/21 04/05/21 18:59 06:59 18:59 Intake Total 1345 240 Output Total 420 Balance 1345 -420 240 Weight 65.771 kg 65.8 kg 65.8 kg Intake: IV 1105 Oral 240 240 Output: Urine 420 Other: Voiding Method Toilet # Voids 1 2 - Labs CBC & Chem 7: 04/05/21 06:44 04/05/21 06:44 Labs: Abnormal Lab Results - Last 24 Hours (Table) 04/05/21 Range/Units 06:44 Chloride 108 H (98-107) mmol/L <Paul Cheney - Last Filed: 04/05/21 16:04> Objective - Vital Signs Vital signs: Vital Signs Temp 96.6 F L 04/05/21 11:23 Pulse 70 04/05/21 11:23 Resp 18 04/05/21 11:23 BP 90/55 04/05/21 11:23 Pulse Ox 100 04/05/21 11:23 Intake & Output 04/04/21 04/05/21 04/05/21 18:59 06:59 18:59 Intake Total 1345 240 Output Total 420 Balance 1345 -420 240 Weight 65.771 kg 65.8 kg 65.8 kg Intake: IV 1105 Oral 240 240 Output: Urine 420 Other: Voiding Method Toilet # Voids 1 2 - Labs CBC & Chem 7: 04/05/21 06:44 04/05/21 06:44 Labs: Abnormal Lab Results - Last 24 Hours (Table) 04/05/21 Range/Units 06:44 Chloride 108 H (98-107) mmol/L
--- NOTE | 2021-04-25 09:39 | P.DS ---
Providers Date of admission: 04/03/21 23:55 Expected date of discharge: 04/05/21 Attending physician: Obed Hart Consults: 04/03/21 23:55 Consult Physician Urgent Consulting Provider: Vero Barajas Consult Reason/Comments: nstemi Do you want consulting provider notified?: Yes 04/04/21 19:28 Consult Physician Routine Consulting Provider: [facility] Consult Reason/Comments: Post Interventional patient Do you want consulting provider notified?: Already Contacted Primary care physician: Gerald Nguyen Hospital Course: Discharge diagnosis Acute non-ST elevated NV. Status post cardiac catheterization stent placement to LAD 2. 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 Hospital course Patient is a 75-year-old male with a known history of hypertension, hyperlipide jabier, history of NV, coronary artery disease history of stent placement in 2004, history of head and neck cancer status post radiation presents to hospital due to complaints of chest pain. Patient states that he was at home yesterday evening and suddenly started having mid retrosternal sharp chest pain. He also felt heaviness in bilateral upper extremities. Denied any associated shortness of breath. No nausea vomiting or diaphoresis. Patient was given nitroglycerin sublingual by EMS and which seemed to relieve his pain. Pain lasted for about 2 hours. Patient was initially seen at [facility] in eventually transferred to [facility] for evaluation. EKG showed normal sinus rhythm with T inversions in the anterior leads. Laboratory data showed troponin 0 0.141, 0.250 LDL 98 Coronavirus PCR not detected BUN 29 creatinine 1.17, sodium 137 potassium 4.3 chloride 106 and bicarb is 26. Patient was continued on telemetry monitoring. Was started on nitro drip due to chest pain. Continued with heparin drip. Currently patient is status post cardiac catheterization and stent placement. Continue with aspirin, Brilinta, statins and metoprolol. Cardiology is on board. No complaints of chest pain at this time. Patient was also complaining of mild headache which subsequently improved now.. Patient is cleared from cardiology standpoint. PHYSICAL EXAMINATION: Patient is lying in the bed comfortably, no acute distress, awake alert and oriented.. HEENT: Normocephalic. Neck is supple. Pupils reactive. Nostrils clear. Oral cavity is moist. Neck reveals no JVD, carotid bruits, or thyromegaly. CHEST EXAMINATION: Trachea is central. Symmetrical expansion. Lung vega clear to auscultation and percussion. CARDIAC: Normal S1, S2 with no gallops. No murmurs ABDOMEN: Soft. Bowel sounds normal. No organomegaly. No abdominal bruits. Extremities: reveal no edema. No clubbing or cyanosis Neurologically awake, alert, oriented x3 with well-coordinated movements. No focal deficits noted Skin: No rash or skin lesions. Psychiatric: Coperative. Nonsuicidal Musculoskeletal: No joint swelling or deformity. Normal range of motion. Vital signs: Vital Signs Temp 98.4 F 04/05/21 08:00 Pulse 81 04/05/21 08:00 Resp 18 04/05/21 08:00 BP 117/63 04/05/21 10:07 Pulse Ox 100 04/05/21 08:00 Intake & Output 04/04/21 04/05/21 04/05/21 18:59 06:59 18:59 Intake Total 1345 240 Output Total 420 Balance 1345 -420 240 Weight 65.771 kg 65.8 kg 65.8 kg Intake: IV 1105 Oral 240 240 Output: Urine 420 Other: Voiding Method Toilet # Voids 1 2 - Labs CBC & Chem 7: 04/05/21 06:44 04/05/21 06:44 Labs: Abnormal Lab Results - Last 24 Hours (Table) 04/05/21 Range/Units 06:44 Chloride 108 H (98-107) mmol/L Patient Condition at Discharge: Fair Plan - Discharge Summary Discharge Rx Participant: No New Discharge Prescriptions: New Ticagrelor [Brilinta] 90 mg PO BID #180 tab Atorvastatin [Lipitor] 40 mg PO DAILY #90 tab Nitroglycerin Sl Tabs [Nitrostat] 0.4 mg SUBLINGUAL Q5M PRN #1 bottle PRN Reason: Chest Pain Aspirin 81 mg PO DAILY #90 chew Metoprolol Tartrate [Lopressor] 25 mg PO BID #180 tab lisinopriL [Zestril] 10 mg PO DAILY #90 tab Continue Albuterol Nebulized [Ventolin Nebulized] 2.5 mg INHALATION RT-TID PRN PRN Reason: Shortness Of Breath Famotidine 20 mg PO DAILY Discontinued Pravastatin Sodium [Pravachol] 40 mg PO HS Aspirin EC [Ecotrin] 325 mg PO DAILY Discharge Medication List Albuterol Nebulized [Ventolin Nebulized] 2.5 mg INHALATION RT-TID PRN 12/23/19 [History] Famotidine 20 mg PO DAILY 04/03/21 [History] Aspirin 81 mg PO DAILY #90 chew 04/05/21 [Rx] Atorvastatin [Lipitor] 40 mg PO DAILY #90 tab 04/05/21 [Rx] Metoprolol Tartrate [Lopressor] 25 mg PO BID #180 tab 04/05/21 [Rx] Nitroglycerin Sl Tabs [Nitrostat] 0.4 mg SUBLINGUAL Q5M PRN #1 bottle 04/05/21 [Rx] Ticagrelor [Brilinta] 90 mg PO BID #180 tab 04/05/21 [Rx] lisinopriL [Zestril] 10 mg PO DAILY #90 tab 04/05/21 [Rx] Follow up Appointment(s)/Referral(s): Gerald Nguyen MD [Primary Care Provider] - 04/07/21 3:40 am Clifford Griffin MD [STAFF PHYSICIAN] - 1 Week Patient Instructions/Handouts: Heart Attack (DC), Left Heart Catheterization (DC) Discharge Disposition: HOME SELF-CARE
== END 2021-04-05 15:15 | disposition home or self-care (01) | DRG 247 ==
LOC: EC 21:58 → 3SCARD 23:55
PROVIDERS: ADMIT Hospitalist; ATTEND Hospitalist
PROC: 027035Z Dilation of Coronary Artery, One Artery with Two Drug-eluting Intraluminal Devices, Percutaneous Approach (ICD-10-PCS; principal; 2021-04-03)
PROC: B240ZZ3 Ultrasonography of Single Coronary Artery, Intravascular (ICD-10-PCS; principal; 2021-04-03)
PROC: B2111ZZ Fluoroscopy of Multiple Coronary Arteries using Low Osmolar Contrast (ICD-10-PCS; principal; 2021-04-03)
PROC: 02C03ZZ Extirpation of Matter from Coronary Artery, One Artery, Percutaneous Approach (ICD-10-PCS; principal; 2021-04-03)
PROC: 4A023N7 Measurement of Cardiac Sampling and Pressure, Left Heart, Percutaneous Approach (ICD-10-PCS; principal; 2021-04-03)
DX: I21.4 Non-ST elevation (NSTEMI) myocardial infarction (principal); E78.00 Pure hypercholesterolemia, unspecified; M06.9 Rheumatoid arthritis, unspecified; I25.5 Ischemic cardiomyopathy; Z20.822 Contact with and (suspected) exposure to COVID-19; I25.10 Atherosclerotic heart disease of native coronary artery without angina pectoris; E78.5 Hyperlipidemia, unspecified; I10 Essential (primary) hypertension; I65.29 Occlusion and stenosis of unspecified carotid artery; K21.9 Gastro-esophageal reflux disease without esophagitis; N42.9 Disorder of prostate, unspecified; I25.2 Old myocardial infarction; Z79.82 Long term (current) use of aspirin; Z79.899 Other long term (current) drug therapy; Z95.5 Presence of coronary angioplasty implant and graft; Z92.3 Personal history of irradiation; Z85.89 Personal history of malignant neoplasm of other organs and systems; Z88.5 Allergy status to narcotic agent
CPT/HCPCS: 36415; 80048; 80053; 80061; 82550; 83690; 83735; 83880; 84484; 85025; 85610; 85730; 87635; 92978; 93005; 93306; 93458; 99291

== ENCOUNTER 2021-04-25 10:23 | Inpatient (IN) | payer MEDICARE, BC ==
[2021-04-25] MEDS ORDERED: SODIUM CHLORIDE 0.9% 1,000 ML IV STA (11:17)
[2021-04-25] MEDS ORDERED: IPRATROPIUM-ALBUTEROL 3 ML NEB INHALATION STA (11:18)
--- NOTE | 2021-04-25 11:19 | ED ---
General Adult HPI - General Chief complaint: Dizziness Stated complaint: Hypotension Time Seen by Provider: 04/25/21 11:01 Source: patient, family, EMS, RN notes reviewed Mode of arrival: EMS Limitations: no limitations - History of Present Illness Initial comments: Patient is a pleasant 75-year-old male presenting to the emergency department from his primary care physician office. Patient was in the hospital a few weeks ago and discharge. Patient has had cough since that time. No dyspnea. No history of COPD or asthma. Patient has had episodes of lightheadedness. Patient did have a couple of falls.. Dizziness is described as lightheadedness, no spinning type sensation. Symptoms improved with lying down however worsened with upright position. Patient did start metoprolol and lisinopril. Lisinopril was recently decreased secondary to concerns for blood pressure. Patient's blood pressure has been low at home the last 2 days. - Related Data Home Medications Medication Instructions Recorded Confirmed Albuterol Nebulized [Ventolin 2.5 mg INHALATION RT-TID PRN 12/23/19 04/25/21 Nebulized] Famotidine 20 mg PO DAILY 04/03/21 04/25/21 Previous Rx's Medication Instructions Recorded Aspirin 81 mg PO DAILY #90 chew 04/05/21 Atorvastatin [Lipitor] 40 mg PO DAILY #90 tab 04/05/21 Metoprolol Tartrate [Lopressor] 25 mg PO BID #180 tab 04/05/21 Nitroglycerin Sl Tabs [Nitrostat] 0.4 mg SUBLINGUAL Q5M PRN #1 bottle 04/05/21 Ticagrelor [Brilinta] 90 mg PO BID #180 tab 04/05/21 Allergies Allergy/AdvReac Type Severity Reaction Status Date / Time morphine AdvReac Confusion Verified 04/25/21 12:17 Review of Systems ROS Statement: Those systems with pertinent positive or pertinent negative responses have been documented in the HPI. ROS Other: All systems not noted in ROS Statement are negative. Constitutional: Denies: fever Eyes: Denies: eye pain ENT: Denies: ear pain Respiratory: Reports: cough. Denies: dyspnea Cardiovascular: Denies: chest pain Endocrine: Denies: fatigue Gastrointestinal: Denies: abdominal pain, nausea, vomiting Genitourinary: Denies: dysuria Musculoskeletal: Denies: back pain Skin: Denies: rash Neurological: Reports: as per HPI. Denies: headache Past Medical History Past Medical History: GERD/Reflux, Hyperlipidemia, Hypertension, Myocardial Infarction (NC), Prostate Disorder, Rheumatoid Arthritis (RA) Additional Past Medical History / Comment(s): Cancer of head, neck, throat- resolved, had in 1999 did receive radiation, hypotension (BP fluctuates a lot), Last Myocardial Infarction Date:: 10-29-01 History of Any Multi-Drug Resistant Organisms: None Reported Past Surgical History: Heart Catheterization With Stent Additional Past Surgical History / Comment(s): had a carotid stent placed during CA treatment. 42 lymph nodes removed. Past Anesthesia/Blood Transfusion Reactions: No Reported Reaction Date of Last Stent Placement:: 10-29-01 Past Psychological History: No Psychological Hx Reported Smoking Status: Never smoker Past Alcohol Use History: None Reported Past Drug Use History: None Reported - Past Family History Father Family Medical History: Coronary Artery Disease (CAD), Myocardial Infarction (NC) Additional Family Medical History / Comment(s): heart disease Mother Additional Family Medical History / Comment(s): heart disease General Exam Limitations: no limitations General appearance: alert, in no apparent distress Head exam: Present: atraumatic, normocephalic Eye exam: Present: normal appearance, PERRL, EOMI. Absent: nystagmus ENT exam: Present: normal oropharynx Neck exam: Present: normal inspection Respiratory exam: Present: wheezes Cardiovascular Exam: Present: regular rate, normal rhythm GI/Abdominal exam: Present: soft. Absent: tenderness Extremities exam: Present: normal inspection. Absent: pedal edema, calf tenderness Neurological exam: Present: alert, oriented X3, CN II-XII intact. Absent: motor sensory deficit Expanded Cranial nerves: EOM's Intact: Normal Motor strength exam: RUE: 5, LUE: 5, RLE: 5, LLE: 5 Eye Response: (4) open spontaneously Motor Response: (6) obeys commands Verbal Response: (5) oriented Psychiatric exam: Present: normal affect, normal mood Skin exam: Present: normal color Course Vital Signs 04/25/21 04/25/21 04/25/21 10:26 11:15 11:32 Temperature 97.9 F Pulse Rate 76 70 75 Pulse Rate [ Sitting Pulse Oximetery] Pulse Rate [ Standing Pulse Oximetery] Pulse Rate [ Supine Pulse Oximetery] Respiratory 18 18 18 Rate Blood Pressure 126/89 99/68 120/77 Blood Pressure [Right Arm Sitting] Blood Pressure [Right Arm Standing] Blood Pressure [Right Arm Supine] O2 Sat by Pulse 99 100 100 Oximetry 04/25/21 04/25/21 04/25/21 12:01 12:08 13:44 Temperature Pulse Rate 65 66 Pulse Rate [ 67 Sitting Pulse Oximetery] Pulse Rate [ 70 Standing Pulse Oximetery] Pulse Rate [ 71 Supine Pulse Oximetery] Respiratory 18 Rate Blood Pressure Blood Pressure 97/73 [Right Arm Sitting] Blood Pressure 82/57 [Right Arm Standing] Blood Pressure 118/91 [Right Arm Supine] O2 Sat by Pulse 99 Oximetry EKG Findings - EKG Comments: EKG Findings:: Sinus rhythm with sinus arrhythmia, rate 73. DE 136. QRS 86. QT 394. QTC 434. Normal axis. Normal QRS. T wave inversion leads V1 through V5. EKGs reviewed from 04/03 and 04/04. Medical Decision Making - Medical Decision Making Patient with positive orthostatics. Patient reevaluated and updated. Case was discussed with Dr. Hart, covering for Dr. Nguyen, who will admit. - Lab Data Result diagrams: 04/25/21 11:25 04/25/21 11:25 Lab Results 04/25/21 04/25/21 04/25/21 Range/Units 11:25 11:25 11:25 WBC 8.2 (3.8-10.6) k/uL RBC 3.99 L (4.30-5.90) m/uL Hgb 12.9 L (13.0-17.5) gm/dL Hct 37.7 L (39.0-53.0) % MCV 94.7 (80.0-100.0) fL MCH 32.3 (25.0-35.0) pg MCHC 34.2 (31.0-37.0) g/dL RDW 12.5 (11.5-15.5) % Plt Count 273 (150-450) k/uL MPV 8.0 Neutrophils % 74 % Lymphocytes % 13 % Monocytes % 6 % Eosinophils % 4 % Basophils % 1 % Neutrophils # 6.1 (1.3-7.7) k/uL Lymphocytes # 1.0 (1.0-4.8) k/uL Monocytes # 0.5 (0-1.0) k/uL Eosinophils # 0.4 (0-0.7) k/uL Basophils # 0.1 (0-0.2) k/uL PT 10.7 (9.0-12.0) sec INR 1.0 (<1.2) APTT 24.7 (22.0-30.0) sec Sodium (137-145) mmol/L Potassium (3.5-5.1) mmol/L Chloride (98-107) mmol/L Carbon Dioxide (22-30) mmol/L Anion Gap mmol/L BUN (9-20) mg/dL Creatinine (0.66-1.25) mg/dL Est GFR (CKD-EPI)AfAm (>60 ml/min/1.73 sqM) Est GFR (CKD-EPI)NonAf (>60 ml/min/1.73 sqM) Glucose (74-99) mg/dL Plasma Lactic Acid Elvin (0.7-2.0) mmol/L Calcium (8.4-10.2) mg/dL Phosphorus (2.5-4.5) mg/dL Magnesium (1.6-2.3) mg/dL Total Bilirubin (0.2-1.3) mg/dL AST (17-59) U/L ALT (4-49) U/L Alkaline Phosphatase (38-126) U/L Troponin I (0.000-0.034) ng/mL Total Protein (6.3-8.2) g/dL Albumin (3.5-5.0) g/dL TSH (0.465-4.680) mIU/L Urine Color Yellow Urine Appearance Clear (Clear) Urine pH 6.0 (5.0-8.0) Ur Specific [place] 1.025 (1.001-1.035) Urine Protein Trace H (Negative) Urine Glucose (UA) Negative (Negative) Urine Ketones Negative (Negative) Urine Blood Negative (Negative) Urine Nitrite Negative (Negative) Urine Bilirubin Negative (Negative) Urine Urobilinogen 6.0 (<2.0) mg/dL Ur Leukocyte Esterase Moderate H (Negative) Urine RBC 1 (0-5) /hpf Urine WBC 16 H (0-5) /hpf Urine Bacteria Occasional H (None) /hpf Hyaline Casts 8 H (0-2) /lpf Urine Mucus Occasional H (None) /hpf 04/25/21 04/25/21 04/25/21 Range/Units 11:25 11:25 11:25 WBC (3.8-10.6) k/uL RBC (4.30-5.90) m/uL Hgb (13.0-17.5) gm/dL Hct (39.0-53.0) % MCV (80.0-100.0) fL MCH (25.0-35.0) pg MCHC (31.0-37.0) g/dL RDW (11.5-15.5) % Plt Count (150-450) k/uL MPV Neutrophils % % Lymphocytes % % Monocytes % % Eosinophils % % Basophils % % Neutrophils # (1.3-7.7) k/uL Lymphocytes # (1.0-4.8) k/uL Monocytes # (0-1.0) k/uL Eosinophils # (0-0.7) k/uL Basophils # (0-0.2) k/uL PT (9.0-12.0) sec INR (<1.2) APTT (22.0-30.0) sec Sodium 138 (137-145) mmol/L Potassium 5.0 (3.5-5.1) mmol/L Chloride 107 (98-107) mmol/L Carbon Dioxide 26 (22-30) mmol/L Anion Gap 5 mmol/L BUN 34 H (9-20) mg/dL Creatinine 1.32 H (0.66-1.25) mg/dL Est GFR (CKD-EPI)AfAm 60 (>60 ml/min/1.73 sqM) Est GFR (CKD-EPI)NonAf 52 (>60 ml/min/1.73 sqM) Glucose 109 H (74-99) mg/dL Plasma Lactic Acid Elvin 1.1 (0.7-2.0) mmol/L Calcium 8.8 (8.4-10.2) mg/dL Phosphorus 3.2 (2.5-4.5) mg/dL Magnesium 2.0 (1.6-2.3) mg/dL Total Bilirubin 0.5 (0.2-1.3) mg/dL AST 23 (17-59) U/L ALT 14 (4-49) U/L Alkaline Phosphatase 80 (38-126) U/L Troponin I <0.012 (0.000-0.034) ng/mL Total Protein 6.3 (6.3-8.2) g/dL Albumin 3.5 (3.5-5.0) g/dL TSH 2.470 (0.465-4.680) mIU/L Urine Color Urine Appearance (Clear) Urine pH (5.0-8.0) Ur Specific [place] (1.001-1.035) Urine Protein (Negative) Urine Glucose (UA) (Negative) Urine Ketones (Negative) Urine Blood (Negative) Urine Nitrite (Negative) Urine Bilirubin (Negative) Urine Urobilinogen (<2.0) mg/dL Ur Leukocyte Esterase (Negative) Urine RBC (0-5) /hpf Urine WBC (0-5) /hpf Urine Bacteria (None) /hpf Hyaline Casts (0-2) /lpf Urine Mucus (None) /hpf Disposition Clinical Impression: Orthostatic hypotension, Renal insufficiency, Urinary tract infection Disposition: ADMITTED IP TO THIS HOSP Is patient prescribed a controlled substance at d/c from ED?: No Referrals: Gerald Nguyen MD [Primary Care Provider] - 1-2 days Decision Time: 14:26
[2021-04-25 11:47] LABS: Appearance,Urine Clear (Clear); Bacteria,Urine Occasional /hpf; Bilirubin,Urine Negative (Negative); Blood,Urine Negative (Negative); Color,Urine Yellow; Glucose,Urine (UA) Negative (Negative); Hyaline Casts,Urine 8 /lpf (0-2); Ketones,Urine Negative (Negative); Leukocyte Esterase,Urine Moderate (Negative); Mucus,Urine Occasional /hpf; Nitrite,Urine Negative (Negative); Protein,Urine Trace (Negative); RBC,Urine 1 /hpf (0-5); Specific Gravity,Urine 1.025 (1.001-1.035); WBC,Urine 16 /hpf (0-5)
[2021-04-25 11:48] LABS: Basophils # (A) 0.1 k/uL (0-0.2); Basophils % (A) 1 %; Eosinophils # (A) 0.4 k/uL (0-0.7); Eosinophils % (A) 4 %; HCT 37.7 % (39.0-53.0); HGB 12.9 gm/dL (13.0-17.5); Lymphocytes % (A) 13 %; MCH 32.3 pg (25.0-35.0); MCHC 34.2 g/dL (31.0-37.0); MCV 94.7 fL (80.0-100.0); Monocytes # (A) 0.5 k/uL (0-1.0); Monocytes % (A) 6 %; Neutrophils # (A) 6.1 k/uL (1.3-7.7); Neutrophils % (A) 74 %; Platelet Count 273 k/uL (150-450); RBC 3.99 m/uL (4.30-5.90); RDW 12.5 % (11.5-15.5); WBC 8.2 k/uL (3.8-10.6)
[2021-04-25 11:54] LABS: Albumin 3.5 g/dL (3.5-5.0); Calcium 8.8 mg/dL (8.4-10.2); Phosphorus 3.2 mg/dL (2.5-4.5); Total Bilirubin 0.5 mg/dL (0.2-1.3); Total Protein 6.3 g/dL (6.3-8.2)
[2021-04-25 11:55] LABS: Partial Thromboplastin Time 24.7 sec (22.0-30.0); Prothrombin Time 10.7 sec (9.0-12.0)
--- NOTE | 2021-04-25 11:58 | CT ---
EXAMINATION TYPE: CT brain wo con DATE OF EXAM: 04/25/2021 COMPARISON: None HISTORY: multiple falls, pain CT DLP: 1066.4 mGycm Automated exposure control for dose reduction was used. FINDINGS: Intracranial atherosclerotic changes are noted. Calcification left basal ganglia. Mild generalized de generative change with low attenuation in the white matter which is nonspecific. No midline shift or mass effect. Calvarium intact. Orbits are symmetric and the craniocervical juncti on maintained. IMPRESSION: DEGENERATIVE AND NONSPECIFIC WHITE MATTER CHANGES MOST TYPICAL OF REMOTE WHITE MATTER ISCHEMIA.
--- NOTE | 2021-04-25 12:00 | XR ---
EXAMINATION TYPE: XR chest 2V DATE OF EXAM: 04/25/2021 COMPARISON: 12/23/2019 TECHNIQUE: PA and lateral views submitted. HISTORY: Weakness FINDINGS: The lungs are clear and there is no pneumothorax, pleural effusion, or focal pneumonia. Prominence of the aortic knob stable from prior exam. Atherosclerotic change is noted. Heart size stable and wit hin normal limits. Arthropathy of the shoulders. Biapical pleural thickening. No overt failure. Hyper trophic and degenerative change of the spine. Hyperinflation correlate for asthma or COPD. IMPRESSION: 1. No acute process. See above.
[2021-04-25] MEDS ORDERED: NALOXONE 0.4 MG/ML 1 ML VIAL IV PRN (14:27)
[2021-04-25] MEDS: SODIUM CHLORIDE 0.9% 1,000 ML IV SCH (14:47)
[2021-04-25] MEDS ORDERED: ALBUTEROL NEBULIZED 2.5 MG/3 ML INHALATION PRN (18:59)
[2021-04-25] MEDS ORDERED: NITROGLYCERIN SL TABS 0.4 MG TAB SUBLINGUAL PRN (18:59)
[2021-04-25] MEDS: TICAGRELOR 90 MG TAB PO SCH (20:57)
[2021-04-25] MEDS: HEPARIN SODIUM,PORCINE/PF 5,000 UNIT/0.5 ML SYRINGE SQ SCH (20:57)
--- NOTE | 2021-04-25 21:53 | HP ---
HISTORY AND PHYSICAL DATE OF SERVICE: 04/25/2021. CHIEF COMPLAINT: Weakness and dizziness and orthostatic hypotension. HISTORY OF PRESENT ILLNESS: This 75-year-old gentleman with a past history of GERD, hypertension, history of myocardial infarction, rheumatoid arthritis, being followed by Dr. Nguyen. Recently admitted to [facility] with acute coa-NE-lyudbcb-elevation myocardial infarction. Patient underwent cardiac catheterization and stent placement of the LAD. The patient is currently complaining of weakness. The patient also had cough also. The patient also had episodes of lightheadedness and the symptoms are improving on lying down. The patient also had a few falls also. The patient came to [facility]. Dr. Nguyen evaluated the patient in the outpatient setting. There is no history of fever, rigors. No headache, loss of consciousness, seizures. The patient was found to have an orthostatic hypotension. There was no chest pain, palpitations. PAST MEDICAL HISTORY: 1. Hypertension. 2. History of myocardial infarction. 3. History of rheumatoid arthritis. 4. Recent CAD stenting. MEDICATIONS: Home medications are Brilinta, Nitrostat, Lopressor, famotidine, Lipitor, aspirin, Ventolin. ALLERGIES: MORPHINE. FAMILY HISTORY: History of CAD, myocardial infarction, heart disease. SOCIAL HISTORY: No history of smoking, no alcohol intake. REVIEW OF SYSTEMS: ENT: No diminished vision. CARDIOVASCULAR: Is as mentioned earlier. GI: As mentioned, No dysuria. NERVOUS SYSTEM: No numbness or weakness. ALLERGY: No asthma or hayfever. MUSCULOSKELETAL: As mentioned earlier. HEMATOLOGY/ONCOLOGY: No history of anemia. ENDOCRINE: No history of diabetes or hypothyroidism. CONSTITUTIONAL: As mentioned earlier. PHYSICAL EXAM: Alert and oriented x3. Pulse is 71. Blood pressure 118/91 orthostatic changes. ( ) Respiration 18, temperature normal pulse ox 98% on room air. NECK: Supple. No JVD. RESPIRATORY: Breath sounds diminished at the bases, a few scattered rhonchi. ABDOMEN: Soft, nontender. No mass palpable. LEGS: No edema, no swelling. NERVOUS SYSTEM: Higher functions as mentioned. Moves all, nonfocal. LYMPHATICS: No lymph nodes. SKIN: No rashes. JOINTS: No active deforming arthropathy. LABORATORY DATA: WBC 8.2, hemoglobin 12.9, creatinine is 1.32, glucose 109. UA 16 wbcs. ASSESSMENT: 1. Orthostatic hypotension and history of fall and dizziness for evaluation. 2. History of recent CAD and acute non ST myocardial infarction and catheterization with LAD stent. 3. UTI present on admission. 4. Increased creatinine with mild acute renal failure, acute tubular necrosis, prerenal renal failure. 5. GERD. 6. Hypertension. 7. Hyperlipidemia. 8. Myocardial infarction. 9. History of prostate disorder. 10.History of rheumatoid arthritis. 11.History of cancer of the neck and throat ( ) status post radiation. 12.History of carotid stent. 13.FULL CODE. RECOMMENDATIONS: This 75-year-old gentleman with multiple complex medical issues, we will monitor the patient closely, continue the current management. Continue IV fluids. Obtain cultures. Resume the home medications. Cardiology consultation. We will hold metoprolol for now and continue to monitor. Prognosis guarded. Further recommendations to follow. SANDY / STEVEN: [id number] /
[2021-04-26] MEDS: SODIUM CHLORIDE 0.9% 1,000 ML IV SCH ×2 (05:46→18:21)
[2021-04-26] MEDS: HEPARIN SODIUM,PORCINE/PF 5,000 UNIT/0.5 ML SYRINGE SQ SCH ×2 (08:51→21:28)
[2021-04-26] MEDS: PANTOPRAZOLE 40 MG TABLET PO SCH (08:52)
[2021-04-26] MEDS: TICAGRELOR 90 MG TAB PO SCH ×2 (08:53→21:28)
[2021-04-26] MEDS: FAMOTIDINE 20 MG TAB PO SCH (08:53)
[2021-04-26] MEDS: ATORVASTATIN 40 MG TAB PO SCH (08:53)
[2021-04-26] MEDS: ASPIRIN 81 MG PO SCH (08:53)
[2021-04-26] MEDS ORDERED: METOPROLOL TARTRATE 12.5 MG TAB PO SCH (09:00)
[2021-04-26 09:24] LABS: Basophils # (A) 0.09 X 10*3/uL (0.00-0.10); Basophils % (A) 1.2 %; Eosinophils # (A) 0.47 X 10*3/uL (0.04-0.35); Eosinophils % (A) 6.1 %; HCT 41.3 % (39.6-50.0); HGB 13.3 g/dL (13.0-17.0); Lymphocytes # (A) 1.28 X 10*3/uL (0.90-5.00); Lymphocytes % (A) 16.6 %; MCH 31.7 pg (27.0-32.0); MCHC 32.2 g/dL (32.0-37.0); MCV 98.3 fL (80.0-97.0); Mean Platelet Volume 10.5 fL (9.5-12.2); Monocytes # (A) 0.59 X 10*3/uL (0.20-1.00); Monocytes % (A) 7.7 %; Neutrophils # (A) 5.24 X 10*3/uL (1.80-7.70); Neutrophils % (A) 68.1 %; Platelet Count 305 X 10*3/uL (140-440); RDW 12.9 % (11.5-14.5); WBC 7.69 X 10*3/uL (4.50-10.00)
--- NOTE | 2021-04-26 10:44 | P.CRDCN ---
History of Present Illness History of present illness: HISTORY OF PRESENT ILLNESS: This is a 75-year-old male with a past medical history significant for hypertension, hyperlipidemia, carotid stenosis, and coronary artery disease with previous stenting to the LAD in 2004 and recent PCI to mid AD and mid to distal LAD on 04/04/2021. Patient recently admitted on 04/03/2021- 04/05/2021 with chest pain, patient was diagnosed with NSTEMI, underwent PCI mid LAD, PCI mid to distal LAD, IVUS LAD, and Penumbra aspiration thrombectomy LAD. Patient follows in the office with Dr. Griffin. We have been asked to see the patient in consulta tion for orthostatic hypotension. Patient has been having Dizziness at home with syncopal episode x 2 yesterday, no loss of consciousness. He only was on the ground for a short time he states he felt dizzy and then fell. His was there and helped him and brought him to the emergency department. For the past year the patient states that he has been having dizziness and frontal headache, he has had syncopal episodes before. He does endorse not staying as hydrated as he should. He has associated blurry vision. No chest pains, palpitations, shortness of breath, nausea, vomiting, lightheadedness. Patients orthostatics yesterday, Supine blood pressure 118/91, heart rate 71, Sitting blood pressure 97/73, heart rate 67 Standing blood pressure 82/57, heart rate 70. Patient was started on IV fluids, his orthostatics were repeated and they were negative. Patient slightly hypertensive this morning 160/90. Orthostatics repeated 04/26 morning were positive : Supine blood pressure 156/93, heart rate 94, Sitting blood pressure 111/73, heart rate 93, blood pressure Standing was 94/59, heart rate 96 DIAGNOSTICS: EKG reveals sinus rhythm, heart rate 73, T wave inversions in anterior lateral leads, which are similar with prior EKGs Laboratory data: WBC 8.2 Hgb 12.9 Plt 273, D-dimer 0.66, Troponin negative x 1, Sodium 138, K 5.0, BUN 34, sCr 1.32, Mag 2.0, TSH within normal limits Telemetry tracings reviewed, patient in sinus mechanism heart rate 70s to 80s no arrhythmia or ectopy be noted Current home cardiac medications include Brilinta 90mg BID, Metoprolol tartrate 25mg BID, atorvastatin 40mg daily, aspirin 81mg daily Echocardiogram 04/03/2021 revealed ejection fraction 35-40%, apical anterior lateral inferior and septal wall hypokinesis, trace aortic regurgitation, trace to mild mitral regurgitation, and mild tricuspid regurgitation REVIEW OF SYSTEMS: At the time of my exam: CONSTITUTIONAL: Denies fever or chills. HEENT: +blurred vision, +vision changes,Denies eye pain. Denies hemoptysis CARDIOVASCULAR: Denies chest pain. Denies orthopnea. Denies PND. Denies palpitations RESPIRATORY: Denies shortness of breath. GASTROINTESTINAL: Denies abdominal pain. Denies nausea or vomiting. HEMATOLOGIC: Denies bleeding disorders. GENITOURINARY: Denies any blood in urine. NEURO: Positive dizziness SKIN: Denies pruitis. Denies rash. PHYSICAL EXAM: VITAL SIGNS: Reviewed. GENERAL: Well-developed in no acute distress. HEENT: Head is normocephalic. Pupils are equal, round. Sclerae anicteric. Mucous membranes of the mouth are moist. Neck supple. No JVD or thyromegaly LUNGS: Respirations even and unlabored. Lungs essentially clear to auscultation bilaterally. HEART: Regular rate and rhythm. S1 and S2 heard. ABDOMEN: Soft. Nondistended. Nontender. EXTREMITIES: Normal range of motion. No clubbing or cyanosis. Peripheral pulses intact. No lower extremity edema NEUROLOGIC: Awake and alert. Oriented x 3. ASSESSMENT: Orthostatic hypotension, possibly related to dehydration and vasovagal and metoprolol tartrate Dizziness and Syncope Blurry vision Acute Kidney Injury Hypertension Hyperlipidemia Coronary artery disease with previous PCI to LAD 2004 Recent NSTEMI 04/03/2021 with PCI mid LAD and PCI to mid to distal LAD Ischemic cardiomyopathy, EF 35-40% PLAN: We will reduce patient's metoprolol tartrate to 12.5mg BID. However Later this morning patient became dizzy and hypotensive after 12.5mg metoprolol tartarte BP 89/51. Will hold metoprolol tartrate for now Continue dual antiplatelet therapy with aspirin and Brilinta Continue statin Continue cardiac telemetry Further recommendations pending patient course Nurse practitioner note has been reviewed by physician. Signing provider agrees with the documented findings, assessment, and plan of care. Past Medical History Past Medical History: GERD/Reflux, Hyperlipidemia, Hypertension, Myocardial Infarction ([place]), Prostate Disorder, Rheumatoid Arthritis (RA) Additional Past Medical History / Comment(s): Cancer of head, neck, throat- resolved, had in 1999 did receive radiation, hypotension (BP fluctuates a lot), Last Myocardial Infarction Date:: 10-29-01 History of Any Multi-Drug Resistant Organisms: None Reported Past Surgical History: Heart Catheterization With Stent Additional Past Surgical History / Comment(s): had a carotid stent placed during CA treatment. 42 lymph nodes removed. Past Anesthesia/Blood Transfusion Reactions: No Reported Reaction Date of Last Stent Placement:: 10-29-01 Past Psychological History: No Psychological Hx Reported Smoking Status: Never smoker Past Alcohol Use History: None Reported Past Drug Use History: None Reported - Past Family History Father Family Medical History: Coronary Artery Disease (CAD), Myocardial Infarction (NC) Additional Family Medical History / Comment(s): heart disease Mother Additional Family Medical History / Comment(s): heart disease Medications and Allergies Home Medications Medication Instructions Recorded Confirmed Type Albuterol Nebulized [Ventolin 2.5 mg INHALATION RT-TID PRN 12/23/19 04/25/21 History Nebulized] Famotidine 20 mg PO DAILY 04/03/21 04/25/21 History Aspirin 81 mg PO DAILY #90 chew 04/05/21 04/25/21 Rx Atorvastatin [Lipitor] 40 mg PO DAILY #90 tab 04/05/21 04/25/21 Rx Nitroglycerin Sl Tabs [Nitrostat] 0.4 mg SUBLINGUAL Q5M PRN #1 bottle 04/05/21 04/25/21 Rx Ticagrelor [Brilinta] 90 mg PO BID #180 tab 04/05/21 04/25/21 Rx Allergies Allergy/AdvReac Type Severity Reaction Status Date / Time morphine AdvReac Confusion Verified 04/25/21 12:17 Physical Exam Vitals: Vital Signs Temp Pulse Pulse Pulse Pulse Resp BP 04/25/21 17:44 71 18 106/65 04/25/21 14:53 62 18 142/95 04/25/21 14:00 66 18 135/88 04/25/21 13:44 67 70 71 18 04/25/21 13:00 68 18 105/84 04/25/21 12:08 66 04/25/21 12:01 65 04/25/21 12:00 75 18 82/57 04/25/21 11:32 75 18 120/77 04/25/21 11:15 70 18 99/68 04/25/21 10:26 97.9 F 76 18 126/89 BP BP BP Pulse Ox 04/25/21 17:44 98 04/25/21 14:53 100 04/25/21 14:00 100 04/25/21 13:44 97/73 82/57 118/91 99 04/25/21 13:00 100 04/25/21 12:08 04/25/21 12:01 04/25/21 12:00 100 04/25/21 11:32 100 04/25/21 11:15 100 04/25/21 10:26 99 Intake and Output 04/25/21 04/25/21 04/25/21 06:59 14:59 22:59 Other: Weight 65.771 kg Results 04/26/21 05:52 04/25/21 11:25 Cardiac Enzymes 04/25/21 04/25/21 Range/Units 11:25 11:25 AST 23 (17-59) U/L Troponin I <0.012 (0.000-0.034) ng/mL Coagulation 04/25/21 Range/Units 11:25 PT 10.7 (9.0-12.0) sec APTT 24.7 (22.0-30.0) sec CBC 04/25/21 Range/Units 11:25 WBC 8.2 (3.8-10.6) k/uL RBC 3.99 L (4.30-5.90) m/uL Hgb 12.9 L (13.0-17.5) gm/dL Hct 37.7 L (39.0-53.0) % Plt Count 273 (150-450) k/uL Comprehensive Metabolic Panel 04/25/21 Range/Units 11:25 Sodium 138 (137-145) mmol/L Potassium 5.0 (3.5-5.1) mmol/L Chloride 107 (98-107) mmol/L Carbon Dioxide 26 (22-30) mmol/L BUN 34 H (9-20) mg/dL Creatinine 1.32 H (0.66-1.25) mg/dL Glucose 109 H (74-99) mg/dL Calcium 8.8 (8.4-10.2) mg/dL AST 23 (17-59) U/L ALT 14 (4-49) U/L Alkaline Phosphatase 80 (38-126) U/L Total Protein 6.3 (6.3-8.2) g/dL Albumin 3.5 (3.5-5.0) g/dL Current Medications Generic Name Dose Route Start Last Admin Trade Name Freq PRN Reason Stop Dose Admin Albuterol Sulfate 2.5 mg 04/25/21 18:59 Albuterol Nebulized 2.5 Mg/3 Ml INHALATION RT-TID PRN Shortness Of Breath Aspirin 81 mg 04/26/21 09:00 Aspirin 81 Mg PO DAILY SHARRI Atorvastatin Calcium 40 mg 04/26/21 09:00 Atorvastatin 40 Mg Tab PO DAILY SHARRI Famotidine 20 mg 04/26/21 09:00 Famotidine 20 Mg Tab PO DAILY SHARRI Heparin Sodium (Porcine) 5,000 unit 04/25/21 21:00 Heparin Sodium,Porcine/Pf 5,000 Unit/0.5 Ml Syringe SQ Q12HR SHARRI Sodium Chloride 1,000 mls @ 75 mls/hr 04/25/21 11:17 04/25/21 11:32 Saline 0.9% IV 04/26/21 00:36 75 mls/hr .[id number] STA Administration Sodium Chloride 1,000 mls @ 75 mls/hr 04/25/21 14:30 04/25/21 14:47 Saline 0.9% IV Not Given .[id number] SHARRI Ceftriaxone Sodium 1 gm/ 50 mls @ 100 mls/hr 04/25/21 14:30 04/25/21 14:50 Sodium Chloride IVPB 100 mls/hr Q12HR SHARRI Administration Naloxone HCl 0.2 mg 04/25/21 14:27 Naloxone 0.4 Mg/Ml 1 Ml Vial IV Q2M PRN Opioid Reversal Nitroglycerin 0.4 mg 04/25/21 18:59 Nitroglycerin Sl Tabs 0.4 Mg Tab SUBLINGUAL Q5M PRN Chest Pain Pantoprazole Sodium 40 mg 04/26/21 07:30 Pantoprazole 40 Mg Tablet PO [id number] SHARRI Ticagrelor 90 mg 04/25/21 21:00 Ticagrelor 90 Mg Tab PO BID SHARRI Intake and Output 04/25/21 04/25/21 04/25/21 06:59 14:59 22:59 Other: Weight 65.771 kg Patient Weight 04/26/21 06:59 Weight 65.771 kg 04/25/21 11:25 04/25/21 11:25
[2021-04-26 14:18] LABS: African American GFR (CKD) 74.7 (60.0-200.0); Anion Gap 7.1 mmol/L (4.00-12.00); BUN/Creat Ratio 20.91 Ratio (12.00-20.00); Calcium 8.5 mg/dL (8.7-10.3); Carbon Dioxide 25.9 mmol/L (21.6-31.8); Non-African American GFR(CKD) 64.4 (60.0-200.0); Potassium 4.6 mmol/L (3.5-5.5)
--- NOTE | 2021-04-26 21:10 | P.PN ---
Subjective Patient is admitted for dizziness patient had orthostatic hypotension on admission. Patient was on metoprolol which is being discontinued at this time patient does have history of congestive heart failure chronic systolic dysfunction with EF of around to that 50% patient is presently on gentle hydration patient to be closely monitored for heart failure exacerbation if patient blood pressure improves IV fluids were discontinued. Patient was ev aluated by cardiology. IConstitutional: Denied any fatigue denied any fever. Cardio vascular: denied any chest pain, palpitations Gastrointestinal denied any nausea vomiting Pulmonary: Denied any shortness of breath cough Neurologic denied any new focal deficits All inpatient medications were reviewed and appropriate changes in these medications as dictated in the interval history and assessment and plan. PHYSICAL EXAMINATION: GENERAL: The patient is alert and oriented x3, not in any acute distress. Well developed, well nourished. HEENT: Pupils are round and equally reacting to light. EOMI. No scleral icterus. No conjunctival pallor. Normocephalic, atraumatic. No pharyngeal erythema. No thyromegaly. CARDIOVASCULAR: S1 and S2 present. No murmurs, rubs, or gallops. PULMONARY: Chest is clear to auscultation, no wheezing or crackles. ABDOMEN: Soft, nontender, nondistended, normoactive bowel sounds. No palpable organomegaly. MUSCULOSKELETAL: No joint swelling or deformity. EXTREMITIES: No cyanosis, clubbing, or pedal edema. NEUROLOGICAL: Gross neurological examination did not reveal any focal deficits. SKIN: No rashes. Assessment and plan -Hypotension beta bambi is being discontinued -Coronary artery disease ischemic cardiomyopathy with low EF patient is not in acute exacerbation patient is hypovolemic receiving IV fluids at this time -Hypertension patient is presently hypotensive -Gastroesophageal reflux disease Have an acute renal failure secondary to prerenal azotemia from intravascular depletion and hydrated hypotension expected to improve with IV fluids -History of rheumatoid arthritis -History of throat and neck cancer status post radiation therapy head and neck cancer is in remission at this time. Objective - Vital Signs Vital signs: Vital Signs Temp 97.5 F L 04/26/21 13:58 Pulse 75 04/26/21 17:00 Resp 16 04/26/21 18:45 BP 150/81 04/26/21 17:00 Pulse Ox 97 04/26/21 13:58 Intake & Output 04/26/21 04/26/21 04/27/21 06:59 18:59 06:59 Intake Total 240 Balance 240 Weight 65.771 kg Intake: Oral 240 Other: Voiding Method Toilet Urinal # Voids 1 3 3 - Labs CBC & Chem 7: 04/26/21 05:52 04/26/21 05:52 Labs: Abnormal Lab Results - Last 24 Hours (Table) 04/26/21 04/26/21 Range/Units 05:52 05:52 RBC 4.20 L (4.40-5.60) X 10*6/uL MCV 98.3 H (80.0-97.0) fL Eosinophils # 0.47 H (0.04-0.35) X 10*3/uL BUN/Creatinine Ratio 20.91 H (12.00-20.00) Ratio Calcium 8.5 L (8.7-10.3) mg/dL Microbiology - Last 24 Hours (Table) 04/25/21 11:25 Urine Culture - Preliminary Urine,Voided
[2021-04-27] MEDS ORDERED: BENZOCAINE/MENTHOL LOZENG 1 EACH LOZENGE MUCOUS MEM PRN (02:05)
[2021-04-27 03:47] VITALS: RESP 16; TEMP 98
[2021-04-27 07:25] VITALS: BP 125/81; PULSE 80
[2021-04-27] MEDS ORDERED: amLODIPine 2.5 MG TAB PO PRN (09:18)
[2021-04-27] MEDS: ATORVASTATIN 40 MG TAB PO SCH (09:25)
[2021-04-27] MEDS: PANTOPRAZOLE 40 MG TABLET PO SCH (09:25)
[2021-04-27] MEDS: FAMOTIDINE 20 MG TAB PO SCH (09:25)
[2021-04-27] MEDS: ASPIRIN 81 MG PO SCH (09:25)
[2021-04-27] MEDS: HEPARIN SODIUM,PORCINE/PF 5,000 UNIT/0.5 ML SYRINGE SQ SCH (09:25)
[2021-04-27] MEDS: TICAGRELOR 90 MG TAB PO SCH (09:25)
[2021-04-27 10:39] LABS: African American GFR (CKD) 67.2 (60.0-200.0); Anion Gap 7.7 mmol/L (4.00-12.00); BUN/Creat Ratio 18.33 Ratio (12.00-20.00); Calcium 8.5 mg/dL (8.7-10.3); Carbon Dioxide 24.3 mmol/L (21.6-31.8); Potassium 4.5 mmol/L (3.5-5.5)
--- NOTE | 2021-04-27 14:29 | P.PN ---
Subjective This is a 75-year-old male with a past medical history significant for hypertension, hyperlipidemia, carotid stenosis, and coronary artery disease with previous stenting to the LAD in 2004 and recent PCI to mid AD and mid to distal LAD on 04/04/2021. Patient recently admitted on 04/03/2021- 04/05/2021 with chest pain, patient was diagnosed with NSTEMI, underwent PCI mid LAD, PCI mid to distal LAD, IVUS LAD, and Penumbra aspiration thrombectomy LAD. Patient follows in the office with Dr. Griffin. We have been asked to see the patient in consultat ion for orthostatic hypotension. Patient has been having Dizziness at home with syncopal episode x 2 yesterday, no loss of consciousness. He only was on the ground for a short time he states he felt dizzy and then fell. His was there and helped him and brought him to the emergency department. For the past year the patient states that he has been having dizziness and frontal headache, he has had syncopal episodes before. He does endorse not staying as hydrated as he should. He has associated blurry vision. No chest pains, palpitations, shortness of breath, nausea, vomiting, lightheadedness. Patients orthostatics yesterday, Supine blood pressure 118/91, heart rate 71, Sitting blood pressure 97/73, heart rate 67 Standing blood pressure 82/57, heart rate 70. Patient was started on IV fluids, his orthostatics were repeated and they were negative. Patient slightly hypertensive this morning 160/90. Orthostatics repeated 04/26 morning were positive : Supine blood pressure 156/93, heart rate 94, Sitting blood pressure 111/73, heart rate 93, blood pressure Standing was 94/59, heart rate 96 DIAGNOSTICS: EKG reveals sinus rhythm, heart rate 73, T wave inversions in anterior lateral l nabil, which are similar with prior EKGs Laboratory data: WBC 8.2 Hgb 12.9 Plt 273, D-dimer 0.66, Troponin negative x 1, Sodium 138, K 5.0, BUN 34, sCr 1.32, Mag 2.0, TSH within normal limits Telemetry tracings reviewed, patient in sinus mechanism heart rate 70s to 80s no arrhythmia or ectopy be noted Current home cardiac medications include Brilinta 90mg BID, Metoprolol tartrate 25mg BID, atorvastatin 40mg daily, aspirin 81mg daily Echocardiogram 04/03/2021 revealed ejection fraction 35-40%, apical anterior lateral inferior and septal wall hypokinesis, trace aortic regurgitation, trace to mild mitral regurgitation, and mild tricuspid regurgitation 04/27/21: Patient seen and examined at bedside, continues to be hypotensive and had positive orthostatics, but these are improving. He denies chest pain, shortness of breath, palpitations, lightheadednes. He does have occasional episodes of dizziness, but these symptoms have improved. metoprolol tartrate has been discontinued. Laboratory reviewed sodium 141, potassium 4.5, BUN 22, serum creatinine 1.2. PHYSICAL EXAM: VITAL SIGNS: Reviewed. GENERAL: Well-developed in no acute distress. HEENT: Neck Supple LUNGS: Respirations even and unlabored. Lungs essentially clear to auscultation bilaterally. HEART: Regular rate and rhythm. S1 and S2 heard. ABDOMEN: Soft. Nondistended. Nontender. EXTREMITIES: Normal range of motion. No clubbing or cyanosis. Peripheral pulses intact. No lower extremity edema NEUROLOGIC: Awake and alert. Oriented x 3. ASSESSMENT: Orthostatic hypotension, possibly related to dehydration and vasovagal and metoprolol tartrate Dizziness and Syncope Blurry vision Acute Kidney Injury Hypertension Hyperlipidemia Coronary artery disease with previous PCI to LAD 2004 Recent NSTEMI 04/03/2021 with PCI mid LAD and PCI to mid to distal LAD Ischemic cardiomyopathy, EF 35-40% PLAN: Patient continues to be dizzy and hypotensive after 12.5mg metoprolol tartarte yesterday BP 89/51. Continue to hold metoprolol If patient hypertensive, can give amlodipine 2.5mg PRN Continue dual antiplatelet therapy with aspirin and Brilinta. However, patient states he never filled Brilinta and has Plavix at home. He states he is almost running out of Plavix. Will send new prescription for patient. Discontinue Brilinta, Start Plavix Discontinue metoprolol tartrate Continue statin From cardiology perspective, patient is stable to be discharged home and follow up with Dr. Griffin Nurse practitioner note has been reviewed by physician. Signing provider agrees with the documented findings, assessment, and plan of care. Objective - Vital Signs Vital signs: Vital Signs Temp 98.0 F 04/27/21 07:00 Pulse 80 04/27/21 07:00 Resp 16 04/27/21 07:00 BP 125/81 04/27/21 07:00 Pulse Ox 98 04/27/21 07:00 Intake & Output 04/26/21 04/27/21 04/27/21 18:59 06:59 18:59 Intake Total 240 660 Balance 240 660 Intake: Oral 240 660 Other: Voiding Method Toilet Toilet Urinal Urinal # Voids 3 2 - Labs CBC & Chem 7: 04/26/21 05:52 04/27/21 06:12 Labs: Abnormal Lab Results - Last 24 Hours (Table) 04/27/21 Range/Units 06:12 Est GFR (CKD-EPI)NonAf 58.0 L (60.0-200.0) Glucose 122 H (70-110) mg/dL Calcium 8.5 L (8.7-10.3) mg/dL Microbiology - Last 24 Hours (Table) 04/25/21 11:25 Urine Culture - Final Urine,Voided
--- NOTE | 2021-04-27 16:20 | P.DS ---
Providers Date of admission: 04/27/21 12:09 Attending physician: Obed Hart Consults: 04/25/21 14:28 Consult Physician Urgent Consulting Provider: Vero Barajas Consult Reason/Comments: Orthostatic hypotension Do you want consulting provider notified?: Yes Primary care physician: Gerald Turpinqvi [facility] Course: Patient is admitted for dizziness patient had orthostatic hypotension on admission. Patient was on metoprolol which is being discontinued at this time patient does have history of congestive heart failure chronic systolic dysfunction with EF of around to that 50% patient is presently on gentle hydration patient to be closely monitored for heart failure exacerbation if patient blood pressure improves IV fluids were discontinued. Patient was evaluated by cardiology. 04/27/2021 Patient is symptomatically stable presently not in heart failure exacerbation will be discharged today but metoprolol will be discussed. Patient's Balinta is being switched to Plavix because of the cost issue. Patient had cardiac characterization and stenting about a month ago. PHYSICAL EXAMINATION: GENERAL: The patient is alert and oriented x3, not in any acute distress. Well developed, well nourished. HEENT: Pupils are round and equally reacting to light. EOMI. No scleral icterus. No conjunctival pallor. Normocephalic, atraumatic. No pharyngeal erythema. No thyromegaly. CARDIOVASCULAR: S1 and S2 present. No murmurs, rubs, or gallops. PULMONARY: Chest is clear to auscultation, no wheezing or crackles. ABDOMEN: Soft, nontender, nondistended, normoactive bowel sounds. No palpable organomegaly. MUSCULOSKELETAL: No joint swelling or deformity. EXTREMITIES: No cyanosis, clubbing, or pedal edema. NEUROLOGICAL: Gross neurological examination did not reveal any focal deficits. SKIN: No rashes. Assessment and plan -Hypotension beta bambi is being discontinued -Coronary artery disease ischemic cardiomyopathy with low EF , patient is not being discharged on any diuretic his EF may have improved probably will not require any more diuretic -Hypertension patient is presently hypotensive secondary to diuresis. -Gastroesophageal reflux disease - acute renal failure secondary to prerenal azotemia from intravascular depletion , improved with IV fluids -History of rheumatoid arthritis -History of throat and neck cancer status post radiation therapy head and neck cancer is in remission at this time. Plan - Discharge Summary Discharge Rx Participant: No New Discharge Prescriptions: New Clopidogrel [Plavix] 75 mg PO DAILY 30 Days #30 tablet Discontinued Ticagrelor [Brilinta] 90 mg PO BID #180 tab Metoprolol Tartrate [Lopressor] 25 mg PO BID #180 tab No Action Albuterol Nebulized [Ventolin Nebulized] 2.5 mg INHALATION RT-TID PRN PRN Reason: Shortness Of Breath Atorvastatin [Lipitor] 40 mg PO DAILY #90 tab Nitroglycerin Sl Tabs [Nitrostat] 0.4 mg SUBLINGUAL Q5M PRN #1 bottle PRN Reason: Chest Pain Famotidine 20 mg PO DAILY Aspirin 81 mg PO DAILY #90 chew Discharge Medication List Albuterol Nebulized [Ventolin Nebulized] 2.5 mg INHALATION RT-TID PRN 12/23/19 [History] Famotidine 20 mg PO DAILY 04/03/21 [History] Aspirin 81 mg PO DAILY #90 chew 04/05/21 [Rx] Atorvastatin [Lipitor] 40 mg PO DAILY #90 tab 04/05/21 [Rx] Nitroglycerin Sl Tabs [Nitrostat] 0.4 mg SUBLINGUAL Q5M PRN #1 bottle 04/05/21 [Rx] Clopidogrel [Plavix] 75 mg PO DAILY 30 Days #30 tablet 04/27/21 [Rx] Follow up Appointment(s)/Referral(s): Gerald Nguyen MD [Primary Care Provider] - 3 Days Clifford Griffin MD [STAFF PHYSICIAN] - 05/16/21 4:15 pm (Appontment at the [place] location.) Patient Instructions/Handouts: Hypotension (DC) Discharge Disposition: HOME SELF-CARE
== END 2021-04-27 14:55 | disposition home or self-care (01) | DRG 280 ==
LOC: EC 10:23 → 6NMEDSUR 15:00 → OBSVTOIN 04-27 12:09
PROVIDERS: ADMIT Hospitalist; ATTEND Hospitalist
DX: I95.2 Hypotension due to drugs (principal); N17.0 Acute kidney failure with tubular necrosis; I21.4 Non-ST elevation (NSTEMI) myocardial infarction; N39.0 Urinary tract infection, site not specified; I50.22 Chronic systolic (congestive) heart failure; I11.0 Hypertensive heart disease with heart failure; M06.9 Rheumatoid arthritis, unspecified; T44.7X5A Adverse effect of beta-adrenoreceptor antagonists, initial encounter; H53.8 Other visual disturbances; I25.10 Atherosclerotic heart disease of native coronary artery without angina pectoris; I65.29 Occlusion and stenosis of unspecified carotid artery; I25.5 Ischemic cardiomyopathy; I08.3 Combined rheumatic disorders of mitral, aortic and tricuspid valves; T50.2X5A Adverse effect of carbonic-anhydrase inhibitors, benzothiadiazides and other diuretics, initial encounter; E86.0 Dehydration; R42 Dizziness and giddiness; R55 Syncope and collapse; K21.9 Gastro-esophageal reflux disease without esophagitis; N40.0 Benign prostatic hyperplasia without lower urinary tract symptoms; E78.5 Hyperlipidemia, unspecified; R29.6 Repeated falls; I25.2 Old myocardial infarction; Z20.822 Contact with and (suspected) exposure to COVID-19; Z95.5 Presence of coronary angioplasty implant and graft; Z98.890 Other specified postprocedural states; Z88.5 Allergy status to narcotic agent; Z79.82 Long term (current) use of aspirin; Z79.899 Other long term (current) drug therapy; Z79.02 Long term (current) use of antithrombotics/antiplatelets; Z85.89 Personal history of malignant neoplasm of other organs and systems; Z92.3 Personal history of irradiation
CPT/HCPCS: 36415; 70450; 71046; 80048; 80053; 81001; 83605; 83735; 84100; 84443; 84484; 85025; 85379; 85610; 85730; 87086; 87635; 93005; 94640; 96360; 96361; 99285

== ENCOUNTER → 2021-05-19 | Outpatient (CLI) | payer MEDICARE, BC ==
--- NOTE | 2021-05-19 11:12 | FL ---
EXAMINATION TYPE: FL barium swallow DATE OF EXAM: 05/19/2021 CLINICAL HISTORY: Dysphagia TECHNIQUE: A double contrast esophagram is performed utilizing air and barium. A total of 24 second s of fluoroscopic time was utilized during procedure and 11 images obtained. COMPARISON: None FINDINGS: During the second swallow of barium, patient began to cough and aspirated a large volume of barium in to the trachea and bronchi. The examination was aborted. No obvious esophageal abnormality was noted in this markedly limited examination. IMPRESSION: During the second swallow of barium, patient began to cough and ASPIRATED A LARGE VOLUME OF BARIUM in to the trachea and bronchi. The examination was aborted. Corinna at the ordering physician's office was notified at 10:15 AM via telephone by the technologist.
== END | disposition home or self-care (01) ==
LOC: RADUSWWP 09:42
PROVIDERS: ATTEND Otolaryngology
DX: R13.10 Dysphagia, unspecified (principal); R05 Cough
CPT/HCPCS: 74220

== ENCOUNTER 2021-05-20 10:18 | Emergency (ER) | payer MEDICARE, BC ==
[2021-05-20 10:58] LABS: Basophils # (A) 0.1 k/uL (0-0.2); Basophils % (A) 1 %; Eosinophils # (A) 0.3 k/uL (0-0.7); Eosinophils % (A) 3 %; HGB 13.6 gm/dL (13.0-17.5); Lymphocytes # (A) 1.2 k/uL (1.0-4.8); Lymphocytes % (A) 15 %; MCHC 33.3 g/dL (31.0-37.0); MCV 96.2 fL (80.0-100.0); Mean Platelet Volume 8.3; Monocytes # (A) 0.4 k/uL (0-1.0); Monocytes % (A) 6 %; Neutrophils # (A) 5.7 k/uL (1.3-7.7); Neutrophils % (A) 73 %; Platelet Count 345 k/uL (150-450); RBC 4.26 m/uL (4.30-5.90); RDW 12.5 % (11.5-15.5); WBC 7.8 k/uL (3.8-10.6)
[2021-05-20 11:05] LABS: Partial Thromboplastin Time 23.9 sec (22.0-30.0); Prothrombin Time 10.3 sec (9.0-12.0)
[2021-05-20 11:15] LABS: Albumin 4.1 g/dL (3.5-5.0); Calcium 9.1 mg/dL (8.4-10.2); Potassium 4.8 mmol/L (3.5-5.1); Total Bilirubin 0.5 mg/dL (0.2-1.3); Total Protein 7.1 g/dL (6.3-8.2)
--- NOTE | 2021-05-20 11:33 | XR ---
EXAMINATION TYPE: XR chest 2V DATE OF EXAM: 05/20/2021 COMPARISON: Chest x-ray 04/25/2021 HISTORY: Difficulty breathing TECHNIQUE: Frontal and lateral views of the chest are obtained. FINDINGS: There is no focal air space opacity, pleural effusion, or pneumothorax seen. The cardiac silhouette size is within normal limits. There is likely barium in the right lower lobe from patient' s barium swallow 05/19/2021. Again contrast is present within the colon. Patient is rotated. There is thoracic spondylosis. Aorta is dense. The osseous structures are intact. IMPRESSION: Evidence of aspiration, correlate for pneumonia
--- NOTE | 2021-05-20 11:50 | ED ---
General Adult HPI - General Chief complaint: Recheck/Abnormal Lab/Rx Stated complaint: Complications from Barrium swallow test yesterday Time Seen by Provider: 05/20/21 10:26 Source: patient, RN notes reviewed Mode of arrival: ambulatory Limitations: no limitations - History of Present Illness Initial comments: 75-year-old male present emergency Department with chief complaint of aspiration. Patient was here yesterday for barium swallow. Patient states he was notified by ENT and pulmonary that he had contrast within his lung. Patient states he has no complaints today denies fevers chills shortness of breath are the usual he states he has been heart disease, difficulty swallowing on a regular basis secondary to throat cancer after surgery and radiation. Patient states this was 21 to go. Denies any chest pain no headache or dizziness no abd ominal pain. - Related Data Home Medications Medication Instructions Recorded Confirmed Albuterol Nebulized [Ventolin 2.5 mg INHALATION RT-TID PRN 12/23/19 05/20/21 Nebulized] Famotidine 20 mg PO DAILY 04/03/21 05/20/21 Previous Rx's Medication Instructions Recorded Aspirin 81 mg PO DAILY #90 chew 04/05/21 Atorvastatin [Lipitor] 40 mg PO DAILY #90 tab 04/05/21 Nitroglycerin Sl Tabs [Nitrostat] 0.4 mg SUBLINGUAL Q5M PRN #1 bottle 04/05/21 Clopidogrel [Plavix] 75 mg PO DAILY 30 Days #30 tablet 04/27/21 Amoxicillin/Potassium Clav 1 tab PO Q12HR #20 tab 05/20/21 [Augmentin 875-125 Tablet] Allergies Allergy/AdvReac Type Severity Reaction Status Date / Time morphine AdvReac Confusion Verified 05/20/21 11:30 Review of Systems ROS Statement: Those systems with pertinent positive or pertinent negative responses have been documented in the HPI. ROS Other: All systems not noted in ROS Statement are negative. Past Medical History Past Medical History: GERD/Reflux, Hyperlipidemia, Hypertension, Myocardial Infarction ([place]), Prostate Disorder, Rheumatoid Arthritis ([place]) Additional Past Medical History / Comment(s): Cancer of head, neck, throat- resolved, had in 1999 did receive radiation, hypotension (BP fluctuates a lot), Last Myocardial Infarction Date:: 10-29-01 History of Any Multi-Drug Resistant Organisms: None Reported Past Surgical History: Heart Catheterization With Stent Additional Past Surgical History / Comment(s): had a carotid stent placed during CA treatment. 42 lymph nodes removed. Past Anesthesia/Blood Transfusion Reactions: No Reported Reaction Date of Last Stent Placement:: 10-29-01 Past Psychological History: No Psychological Hx Reported Smoking Status: Never smoker Past Alcohol Use History: None Reported Past Drug Use History: None Reported - Past Family History Father Family Medical History: Coronary Artery Disease (CAD), Myocardial Infarction ([place]) Additional Family Medical History / Comment(s): heart disease Mother Additional Family Medical History / Comment(s): heart disease General Exam Limitations: no limitations General appearance: alert, in no apparent distress Head exam: Present: atraumatic, normocephalic, normal inspection Neck exam: Present: normal inspection, full ROM. Absent: tenderness, meningismus, lymphadenopathy Respiratory exam: Present: rhonchi (faint). Absent: normal lung sounds bilaterally, respiratory distress, wheezes, rales, stridor Cardiovascular Exam: Present: regular rate, normal rhythm, normal heart sounds. Absent: systolic murmur, diastolic murmur, rubs, gallop, clicks GI/Abdominal exam: Present: soft, normal bowel sounds. Absent: distended, tenderness, guarding, rebound, rigid Course Vital Signs 05/20/21 10:20 Temperature 97.4 F L Pulse Rate 85 Respiratory 20 Rate Blood Pressure 154/83 O2 Sat by Pulse 100 Oximetry Medical Decision Making - Medical Decision Making X-ray shows evidence of pain in the right lung. Patient is medically stable. Denies any fever, no leukocytosis case discussed with Dr. Duque in which he stated he can follow-up in office for recheck patient was discharged on Augmentin and return parameters discussed. - Lab Data Result diagrams: 05/20/21 10:40 05/20/21 10:40 Lab Results 05/20/21 05/20/21 05/20/21 Range/Units 10:40 10:40 10:40 WBC 7.8 (3.8-10.6) k/uL RBC 4.26 L (4.30-5.90) m/uL Hgb 13.6 (13.0-17.5) gm/dL Hct 41.0 (39.0-53.0) % MCV 96.2 (80.0-100.0) fL MCH 32.0 (25.0-35.0) pg MCHC 33.3 (31.0-37.0) g/dL RDW 12.5 (11.5-15.5) % Plt Count 345 (150-450) k/uL MPV 8.3 Neutrophils % 73 % Lymphocytes % 15 % Monocytes % 6 % Eosinophils % 3 % Basophils % 1 % Neutrophils # 5.7 (1.3-7.7) k/uL Lymphocytes # 1.2 (1.0-4.8) k/uL Monocytes # 0.4 (0-1.0) k/uL Eosinophils # 0.3 (0-0.7) k/uL Basophils # 0.1 (0-0.2) k/uL PT 10.3 (9.0-12.0) sec INR 1.0 (<1.2) APTT 23.9 (22.0-30.0) sec Sodium 139 (137-145) mmol/L Potassium 4.8 (3.5-5.1) mmol/L Chloride 104 (98-107) mmol/L Carbon Dioxide 30 (22-30) mmol/L Anion Gap 5 mmol/L BUN 25 H (9-20) mg/dL Creatinine 1.14 (0.66-1.25) mg/dL Est GFR (CKD-EPI)AfAm 72 (>60 ml/min/1.73 sqM) Est GFR (CKD-EPI)NonAf 62 (>60 ml/min/1.73 sqM) Glucose 93 (74-99) mg/dL Plasma Lactic Acid Elvin (0.7-2.0) mmol/L Calcium 9.1 (8.4-10.2) mg/dL Total Bilirubin 0.5 (0.2-1.3) mg/dL AST 27 (17-59) U/L ALT 18 (4-49) U/L Alkaline Phosphatase 97 (38-126) U/L Total Protein 7.1 (6.3-8.2) g/dL Albumin 4.1 (3.5-5.0) g/dL 05/20/21 Range/Units 10:40 WBC (3.8-10.6) k/uL RBC (4.30-5.90) m/uL Hgb (13.0-17.5) gm/dL Hct (39.0-53.0) % MCV (80.0-100.0) fL MCH (25.0-35.0) pg MCHC (31.0-37.0) g/dL RDW (11.5-15.5) % Plt Count (150-450) k/uL MPV Neutrophils % % Lymphocytes % % Monocytes % % Eosinophils % % Basophils % % Neutrophils # (1.3-7.7) k/uL Lymphocytes # (1.0-4.8) k/uL Monocytes # (0-1.0) k/uL Eosinophils # (0-0.7) k/uL Basophils # (0-0.2) k/uL PT (9.0-12.0) sec INR (<1.2) APTT (22.0-30.0) sec Sodium (137-145) mmol/L Potassium (3.5-5.1) mmol/L Chloride (98-107) mmol/L Carbon Dioxide (22-30) mmol/L Anion Gap mmol/L BUN (9-20) mg/dL Creatinine (0.66-1.25) mg/dL Est GFR (CKD-EPI)AfAm (>60 ml/min/1.73 sqM) Est GFR (CKD-EPI)NonAf (>60 ml/min/1.73 sqM) Glucose (74-99) mg/dL Plasma Lactic Acid Elvin 0.9 (0.7-2.0) mmol/L Calcium (8.4-10.2) mg/dL Total Bilirubin (0.2-1.3) mg/dL AST (17-59) U/L ALT (4-49) U/L Alkaline Phosphatase (38-126) U/L Total Protein (6.3-8.2) g/dL Albumin (3.5-5.0) g/dL Disposition Clinical Impression: Aspiration into lower respiratory tract Disposition: HOME SELF-CARE Condition: Stable Instructions (If sedation given, give patient instructions): Aspiration Pneumonia (DC) Additional Instructions: Please return to the Emergency Department if symptoms worsen or any other concerns. Prescriptions: Amoxicillin/Potassium Clav [Augmentin 875-125 Tablet] 1 tab PO Q12HR #20 tab Is patient prescribed a controlled substance at d/c from ED?: No Referrals: Gerald Nguyen MD [Primary Care Provider] - 1-2 days Basha,Viral, DO [Doctor of Osteopathic Medicine] - 1-2 days Time of Disposition: 12:25
[2021-05-20 12:37] VITALS: BP 99/71; PULSE 70; RESP 16; TEMP 98.7
== END 2021-05-20 12:35 | disposition home or self-care (01) ==
LOC: EC 10:18
DX: J69.0 Pneumonitis due to inhalation of food and vomit (principal); I10 Essential (primary) hypertension; I25.2 Old myocardial infarction; K21.9 Gastro-esophageal reflux disease without esophagitis; Z79.899 Other long term (current) drug therapy; Z88.5 Allergy status to narcotic agent
CPT/HCPCS: 36415; 71046; 80053; 83605; 85025; 85610; 85730; 99284

== ENCOUNTER → 2021-06-02 | Outpatient (CLI) | payer MEDICARE, BC ==
--- NOTE | 2021-06-02 11:49 | FL ---
EXAMINATION TYPE: FL barium swallow w video DATE OF EXAM: 06/02/2021 COMPARISON: NONE HISTORY: Prior head and neck cancer, difficulty breathing, aspiration TECHNIQUE: Fluoroscopy. FINDINGS: Fluoroscopic guidance was provided for the procedure performed in conjunction with the [facility] pathology department. Please see complete report forthcoming from the Speech Pathology departmen t. Various consistencies from thin liquid to solids were administered. Fluoroscopy time 2 minutes 10 seconds. Number of images: 1 Aspiration was evident with thin liquids and nectar thick liquids. Penetration was present with honey thick consistency and transient penetration with ground puree cons istency. Moderate pooling was observed in the vallecula. There was normal propulsion of the bolus. Some hesitancy is present at the cricopharyngeus muscle. Please see complete report forthcoming from the speech pathology department. IMPRESSION: 1. Aspiration with thin and nectar thick liquids. 2. Penetration with ground consistency and honey thick consistency. 3. Pooling in the vallecula. 4. Some persistence of the cricopharyngeus muscle.
== END | disposition home or self-care (01) ==
LOC: RADFLMAIN 10:42
PROVIDERS: ATTEND Otolaryngology
DX: R13.10 Dysphagia, unspecified (principal)
CPT/HCPCS: 74230

== ENCOUNTER 2021-09-06 11:09 | Day surgery (SDC) | payer MEDICARE, BC ==
[2021-09-02 08:35] VITALS: BMI 21.9
[~2021-09-06 11:09] MED LIST: LACTATED RINGERS 1,000 ML IV SCH
[2021-09-06 11:57] VITALS: TEMP 97.3
[2021-09-06] MEDS ORDERED: PROPOFOL 10 MG/ML 20 ML VIAL IV ONE (12:51)
[2021-09-06] MEDS ORDERED: LIDOCAINE 1% INJ 10MG/ML (20 ML MDV) ONE (12:51)
--- NOTE | 2021-09-06 12:56 | P.GSHP ---
History of Present Illness H&P Date: 09/06/21 Chief Complaint: malnutrition, aspiration 76-year-old male with history of head and neck cancer. Patient with history of dysphagia and malnutrition. Patient has little saliva formation. Has had modified barium swallow showing aspiration with most consistencies. Here today for PEG tube placement. He has had a PEG tube in the past. Past Medical History Past Medical History: GERD/Reflux, Hyperlipidemia, Hypertension, Myocardial I nfarction ([place]), Osteoarthritis (OA), Pneumonia, Prostate Disorder Additional Past Medical History / Comment(s): having difficulty swallowing/aspirating w/fluids and food,hx Cancer of head, neck, throat- resolved, had in 1999 did receive radiation, hypotension (BP fluctuates a lot), Last Myocardial Infarction Date:: 10-29-01 History of Any Multi-Drug Resistant Organisms: None Reported Past Surgical History: Heart Catheterization With Stent Additional Past Surgical History / Comment(s): had a carotid stent placed during CA treatment. 42 lymph nodes removed. Past Anesthesia/Blood Transfusion Reactions: No Reported Reaction Date of Last Stent Placement:: 10-29-01 Smoking Status: Never smoker - Past Family History Father Family Medical History: Coronary Artery Disease (CAD), Myocardial Infarction ([place]) Additional Family Medical History / Comment(s): heart disease Mother Additional Family Medical History / Comment(s): heart disease Medications and Allergies Home Medications Medication Instructions Recorded Confirmed Type Albuterol Nebulized [Ventolin 2.5 mg INHALATION RT-TID PRN 12/23/19 09/06/21 History Nebulized] Famotidine 20 mg PO QAM 04/03/21 09/06/21 History Aspirin 81 mg PO DAILY #90 chew 04/05/21 09/06/21 Rx Atorvastatin [Lipitor] 40 mg PO DAILY #90 tab 04/05/21 09/06/21 Rx Nitroglycerin Sl Tabs [Nitrostat] 0.4 mg SUBLINGUAL Q5M PRN #1 bottle 04/05/21 09/06/21 Rx Clopidogrel [Plavix] 75 mg PO DAILY 30 Days #30 tablet 04/27/21 09/06/21 Rx Allergies Allergy/AdvReac Type Severity Reaction Status Date / Time morphine AdvReac Confusion Verified 09/06/21 11:51 Surgical - Exam Vital Signs Temp Pulse Resp BP Pulse Ox 97.3 F L 82 18 145/87 100 09/06/21 11:55 09/06/21 11:55 09/06/21 11:55 09/06/21 11:55 09/06/21 11:55 Physical exam: General: Well-developed, well-nourished HEENT: Normocephalic, sclerae nonicteric Abdomen: Nontender, nondistended Extremities: No edema Neuro: Alert and oriented Assessment and Plan (1) Dysphagia Narrative/Plan: Will proceed with EGD and PEG tube placement. Risks of bleeding, infection, scarring, bowel injury discussed. He understands and wishes to proceed. Current Visit: Yes Status: Acute Code(s): R13.10 - DYSPHAGIA, UNSPECIFIED SNOMED Code(s): 70848915
--- NOTE | 2021-09-06 13:09 | P.PCN ---
Date of Procedure: 09/06/21 Procedure(s) Performed: PREOPERATIVE DIAGNOSIS: Malnutrition, aspiration POSTOPERATIVE DIAGNOSIS: Same PROCEDURE: EGD with PEG tube placement SURGEON: Julissa EBL: Minimal ANESTHESIA: Sedation COMPLICATIONS: None OPERATIVE PROCEDURE: The patient was placed in the supine position on the endoscopy table. The patient was sedated per anesthesia that time. The Olympus gastroscope was inserted into the oropharynx and passed under direct visualization to the region of the duodenum. No obstruction was seen. The pylorus was widely patent. The stomach was carefully inspected. The stomach was fully insufflated with air. The abdominal wall was inspected. The light was seen shining through the abdominal wall in the left upper quadrant. This was at the previous scar site from prior PEG tube. This site was chosen for PEG tube placement. The area was prepped in the usual sterile fashion. This area was then localized with lidocaine. No air was evident when aspirating while advancing the localizing needle into the stomach until the stomach was reached. A small vertical incision was made using the scalpel. The Seldinger needle was advanced into the lumen of the stomach the wire was advanced. The wire was grasped with an endoscopic snare. The wire was pulled through the oropharynx. The catheter was then connected to the catheter and was pulled anteriorly until the hub of the PEG tube catheter was seated against the anterior wall the stomach. The circular bolster was applied and tightened down. The endoscope was then readvanced into the stomach. There was no evidence of any bleeding and there was appropriate tightness on the bolster. The catheter was cut appropriately. The dual port feeding adapter was applied. DISPOSITION: Stable to recovery room in
[2021-09-06 13:17] VITALS: RESP 16
[2021-09-06 14:23] VITALS: BP 160/85; PULSE 83
== END 2021-09-06 14:24 | disposition home or self-care (01) ==
LOC: ORWHC2ENDO 11:09
PROVIDERS: ATTEND Surgery
DX: R13.10 Dysphagia, unspecified (principal); E46 Unspecified protein-calorie malnutrition; Z95.5 Presence of coronary angioplasty implant and graft; I95.9 Hypotension, unspecified; E78.5 Hyperlipidemia, unspecified; I25.10 Atherosclerotic heart disease of native coronary artery without angina pectoris; I10 Essential (primary) hypertension; I25.5 Ischemic cardiomyopathy; K21.9 Gastro-esophageal reflux disease without esophagitis; I25.2 Old myocardial infarction; M19.90 Unspecified osteoarthritis, unspecified site; N42.9 Disorder of prostate, unspecified; Z87.01 Personal history of pneumonia (recurrent); Z92.3 Personal history of irradiation; Z80.8 Family history of malignant neoplasm of other organs or systems; Z82.49 Family history of ischemic heart disease and other diseases of the circulatory system; Z79.02 Long term (current) use of antithrombotics/antiplatelets; Z79.82 Long term (current) use of aspirin; Z79.899 Other long term (current) drug therapy; Z88.5 Allergy status to narcotic agent
CPT/HCPCS: 43246; J2001; J2704; B4087

== ENCOUNTER → 2021-12-27 | Day surgery (SDC) | payer MEDICARE, BC ==
[2021-12-23 12:44] VITALS: BMI 22.4
[~2021-12-27] MED LIST changes: +LACTATED RINGERS 1,000 ML IV ONE; +PROPOFOL 10 MG/ML 20 ML VIAL IV ONE
[2021-12-27 06:25] VITALS: TEMP 96.5
--- NOTE | 2021-12-27 07:28 | P.PCN ---
Date of Procedure: 12/27/21 Procedure(s) Performed: BRIEF HISTORY: Patient is a 76-year-old pleasant white male scheduled for an elective colonoscopy as a part of evaluation of Hemoccult Positive stool. PROCEDURE PERFORMED: Colonoscopy. PREOPERATIVE DIAGNOSIS: Anemia and Hemoccult-positive stool. IV sedation per Anesthesia. PROCEDURE: After informed consent was obtained, the patient, was brought into the endoscopy unit. IV sedation was administered by Anesthesia under continuous monitoring. Digital rectal examination was normal. Initially the Olympus CF-160 flexible video colonoscope was then inserted in the rectum, gradually advanced into the cecum without any difficulty. Careful examination was performed as the scope was gradually being withdrawn. Ileocecal valve and the appendiceal orifice were visualized and appeared normal. Prep was good.. Mucosa of the cecum, ascending colon, transverse colon, descending colon, sigmoid colon, and rectum appeared normal. Retroflexion was performed in the rectum and monitor hemorrhoids were seen. The patient tolerated the procedure well. IMPRESSION: Normal-appearing colon from rectum to cecum with no evidence of colorectal neoplasia. Small internal hemorrhoids. RECOMMENDATIONS: Findings of this examination were discussed with the patient as well as his family. He was advised to be a high-fiber diet and take fiber supplements a regular basis..
[2021-12-27 07:39] VITALS: RESP 16
[2021-12-27 07:49] VITALS: BP 169/83; PULSE 73
== END ==
LOC: ORWHC2ENDO 05:45
PROVIDERS: ATTEND Internal Medicine Gastroenterology
DX: K64.8 Other hemorrhoids (principal); K92.1 Melena; D64.9 Anemia, unspecified; I25.10 Atherosclerotic heart disease of native coronary artery without angina pectoris; I10 Essential (primary) hypertension; E78.5 Hyperlipidemia, unspecified; I25.2 Old myocardial infarction; Z95.5 Presence of coronary angioplasty implant and graft; K21.9 Gastro-esophageal reflux disease without esophagitis; Z98.890 Other specified postprocedural states; Z97.2 Presence of dental prosthetic device (complete) (partial); Z88.5 Allergy status to narcotic agent; Z79.02 Long term (current) use of antithrombotics/antiplatelets; Z79.82 Long term (current) use of aspirin; Z79.899 Other long term (current) drug therapy
CPT/HCPCS: 45378; J2704

== ENCOUNTER 2022-04-06 09:09 | Emergency (ER) | payer MEDICARE, BC ==
--- NOTE | 2022-04-06 10:01 | ED ---
General Adult HPI - General Chief complaint: Extremity Problem,Nontraumatic Stated complaint: fall Time Seen by Provider: 04/06/22 09:27 Source: patient, RN notes reviewed, old records reviewed Mode of arrival: ambulatory Limitations: no limitations - History of Present Illness Initial comments: 76-year-old male presented status post fall which occurred yesterday. Patient fell injuring his right knee and also having minor head trauma. He was seen at urgent care and sent to the emergency department for evaluation predominantly of his head injury. He is on Plavix. There was no loss of consciousness. Patient states his knee was quite swollen but has improved with ice and elevation. He is able to bear weight. - Related Data Home Medications Medication Instructions Recorded Confirmed Famotidine 20 mg PEG/G-TUBE DAILY 04/03/21 12/23/21 Aspirin 325 mg PEG/G-TUBE DAILY 10/27/21 12/23/21 Atorvastatin [Lipitor] 40 mg PEG/G-TUBE DAILY 10/27/21 12/23/21 Clopidogrel [Plavix] 75 mg PEG/G-TUBE DAILY 10/27/21 12/23/21 Fludrocortisone [Florinef] 0.1 mg PEG/G-TUBE BID 12/23/21 12/23/21 Previous Rx's Medication Instructions Recorded Nitroglycerin Sl Tabs [Nitrostat] 0.4 mg SUBLINGUAL Q5M PRN #1 bottle 04/05/21 Allergies Allergy/AdvReac Type Severity Reaction Status Date / Time morphine AdvReac Confusion Verified 04/06/22 11:24 Review of Systems ROS Statement: Those systems with pertinent positive or pertinent negative responses have been documented in the HPI. ROS Other: All systems not noted in ROS Statement are negative. Past Medical History Past Medical History: Cancer, GERD/Reflux, Hyperlipidemia, Hypertension, Myocardial Infarction ([place]), Osteoarthritis (OA), Pneumonia, Prostate Disorder Additional Past Medical History / Comment(s): having difficulty swallowing/aspirating w/fluids and food,hx Cancer of head, neck, throat- resolved, had radiation 1999, hypotension (BP fluctuates a lot), Last Myocardial Infarction Date:: 10-29-01 History of Any Multi-Drug Resistant Organisms: None Reported Past Surgical History: Heart Catheterization With Stent Additional Past Surgical History / Comment(s): had a carotid stent placed during CA treatment. 42 lymph nodes removed- SURGERY FOR CANCER OF THE NECK Past Anesthesia/Blood Transfusion Reactions: No Reported Reaction Date of Last Stent Placement:: 04/03/21 Past Psychological History: No Psychological Hx Reported Smoking Status: Never smoker - Past Family History Father Family Medical History: Coronary Artery Disease (CAD), Myocardial Infarction ([place]) Additional Family Medical History / Comment(s): heart disease Mother Family Medical History: No Reported History Additional Family Medical History / Comment(s): heart disease General Exam Limitations: no limitations General appearance: alert, in no apparent distress Head exam: Present: normocephalic, other (Abrasion right forehead no hematoma) Eye exam: Present: normal appearance, PERRL ENT exam: Present: normal exam Neck exam: Present: normal inspection. Absent: tenderness, meningismus Respiratory exam: Present: normal lung sounds bilaterally. Absent: respiratory distress, wheezes, rhonchi Cardiovascular Exam: Present: regular rate, normal rhythm GI/Abdominal exam: Present: soft. Absent: distended, tenderness, guarding Extremities exam: Present: joint swelling (Right knee effusion, anterior ecchymosis, no calf tenderness, distal pulses are intact.) Neurological exam: Present: alert, oriented X3, CN II-XII intact. Absent: motor sensory deficit Psychiatric exam: Present: normal affect, normal mood Skin exam: Present: warm, dry Course Vital Signs 04/06/22 04/06/22 09:15 09:47 Temperature 97.4 F L Pulse Rate 72 76 Respiratory 18 14 Rate Blood Pressure 124/74 146/88 O2 Sat by Pulse 100 99 Oximetry Medical Decision Making - Medical Decision Making 68-year-old male with fall, right knee injury, minor head injury. Patient sent over for computed tomography scan of the brain. This was performed, negative for intracranial hemorrhage, he did have significant arthritis on x-ray the knee without fracture dislocation. His knee is artery significantly improved from yesterday according to family. He will continue to ice it and elevated. He'll be given orthopedic follow-up as needed. He is weightbearing with minimal pain. Disposition Clinical Impression: Concussion, Contusion, knee Disposition: HOME SELF-CARE Condition: Good Instructions (If sedation given, give patient instructions): Knee Sprain (ED) Is patient prescribed a controlled substance at d/c from ED?: No Referrals: Gerald Nguyen MD [Primary Care Provider] - 1-2 days Carolina Billingsley DO [Doctor of Osteopathic Medicine] - 1-2 days Time of Disposition: 11:45
--- NOTE | 2022-04-06 10:18 | CT ---
EXAMINATION TYPE: CT brain wo con DATE OF EXAM: 04/06/2022 COMPARISON: CT dated 04/25/2021 HISTORY: Fall. CT DLP: 1098.4 mGycm Automated exposure control for dose reduction was used. TECHNIQUE: CT scan of the brain is performed without IV contrast administration. FINDINGS: Brain volume loss changes, likely age-related. Bilateral cerebral white matter hypodensities, likely representing chronic microvascular ischemic changes. Right occipital area of encephalomalacia, likely representing sequela of chronic infarct, stable. Sca ttered arterial atherosclerotic calcifications. No acute intracranial hemorrhage. No gross acute cortical infarct. No midline shift, herniation or ve ntriculomegaly. Unremarkable basal cisterns, sella and CP angles. No gross space-occupying lesion, vasogenic edema or mass effect. Unremarkable orbits. Clear visualized paranasal sinuses and mastoid air cells. Osteopenia. IMPRESSION: No acute intracranial posttraumatic sequela or acute calvarial bone fracture. Chronic findings as acosta cribed above.
--- NOTE | 2022-04-06 10:40 | XR ---
EXAMINATION TYPE: XR chest 2V DATE OF EXAM: 04/06/2022 COMPARISON: 10/27/2021 TECHNIQUE: PA and lateral views submitted. HISTORY: Cough FINDINGS: The lungs are clear and there is no pneumothorax, pleural effusion, or focal pneumonia. Radiopaque density within the right lower lobe. Heart size normal. Hypertrophic degenerative change. Hyperinflat ion lungs with biapical pleural thickening. IMPRESSION: 1. COPD.
--- NOTE | 2022-04-06 10:41 | XR ---
EXAMINATION TYPE: XR knee complete RT DATE OF EXAM: 04/06/2022 COMPARISON: NONE HISTORY: Pain TECHNIQUE: Three views are submitted. FINDINGS: Chondrocalcinosis noted with narrowing of the medial compartment and patellofemoral compartment of th e joint spaces. Spurring along the upper margin of the patella. Trace amount of fluid is still of Claudia sed. No acute fracture or dislocation. No erosive changes. IMPRESSION: 1. Findings are most typical deposition arthropathy or osteoarthritis. Correlate clinically. 2. No acute fracture.
[2022-04-06 11:54] VITALS: BP 102/62; PULSE 80; RESP 18; TEMP 98
== END 2022-04-06 11:53 | disposition home or self-care (01) ==
LOC: EC 09:09
DX: S06.0X9A Concussion with loss of consciousness of unspecified duration, initial encounter (principal); S80.01XA Contusion of right knee, initial encounter; S00.81XA Abrasion of other part of head, initial encounter; I10 Essential (primary) hypertension; I25.2 Old myocardial infarction; E78.5 Hyperlipidemia, unspecified; K21.9 Gastro-esophageal reflux disease without esophagitis; M19.90 Unspecified osteoarthritis, unspecified site; Z79.02 Long term (current) use of antithrombotics/antiplatelets; Z79.82 Long term (current) use of aspirin; Z79.899 Other long term (current) drug therapy; Z88.5 Allergy status to narcotic agent; W01.0XXA Fall on same level from slipping, tripping and stumbling without subsequent striking against object, initial encounter
CPT/HCPCS: 70450; 71046; 99284

== ENCOUNTER 2022-11-21 15:31 | Emergency (ER) | payer MEDICARE, BC ==
[2022-11-21] MEDS ORDERED: SODIUM CHLORIDE 0.9% 500 ML 500 ML IV STA (16:36)
--- NOTE | 2022-11-21 17:04 | XR ---
EXAMINATION TYPE: XR chest 2V DATE OF EXAM: 11/21/2022 4:49 PM COMPARISON: Chest radiographs from 04/06/2022 TECHNIQUE: XR chest 2V Frontal and lateral views of the chest. CLINICAL INDICATION:Male, 77 years old with history of difficulty breathing; FINDINGS: Lungs/Pleura: Similar calcifications in the right lung base. There is no evidence of pleural effusion , focal consolidation, or pneumothorax. Pulmonary vascularity: Unremarkable. Heart/mediastinum: Cardiomediastinal silhouette is unremarkable. Musculoskeletal: No acute osseous pathology. IMPRESSION: 1. No acute cardiopulmonary disease process. 2. COPD changes.
[2022-11-21 17:13] LABS: Basophils # (A) 0.1 k/uL (0-0.2); Basophils % (A) 1 %; Eosinophils % (A) 0 %; HCT 37.2 % (39.0-53.0); HGB 12.9 gm/dL (13.0-17.5); Lymphocytes # (A) 1.2 k/uL (1.0-4.8); Lymphocytes % (A) 14 %; MCH 32.6 pg (25.0-35.0); MCHC 34.8 g/dL (31.0-37.0); MCV 93.8 fL (80.0-100.0); Mean Platelet Volume 9.4; Monocytes # (A) 0.6 k/uL (0-1.0); Monocytes % (A) 7 %; Neutrophils # (A) 6.8 k/uL (1.3-7.7); Neutrophils % (A) 76 %; Platelet Count 300 k/uL (150-450); RBC 3.97 m/uL (4.30-5.90); RDW 12.9 % (11.5-15.5)
--- NOTE | 2022-11-21 17:14 | ED ---
General Adult HPI - General Chief complaint: Shortness of Breath Stated complaint: lab recheck Time Seen by Provider: 11/21/22 16:20 Source: patient Mode of arrival: ambulatory Limitations: no limitations - History of Present Illness Initial comments: 77-year-old male with past medical history of head and neck cancer, PEG tube placement due to aspiration, COPD who presents to the emergency department for cough. States that he was seen in his primary care office last week on Sunday. He was reporting a cough. They placed him on antibiotics, Medrol Dosepak. Laboratory studies were conducted. Patient did receive an IM injection of steroids and antibiotics. States that he was able to start the steroids on Sunday however antibiotics were not available until yesterday from the pharmacy. He did take yesterday and today's dose of antibiotics. Reports that he continues to have a persistent cough. He has not used any antitussives. He called the office today for recommendations. They found the patient to have a white count of 16,000 and did recommend that the patient go to the hospital for reevaluation. He denies any chest pain. No shortness of breath. No lower extremity edema or pain. No history of cardiac issues. No sick contacts with similar symptoms. No other alleviating, precipitating or modifying factors - Related Data Home Medications Medication Instructions Recorded Confirmed Famotidine 20 mg PEG/G-TUBE DAILY 04/03/21 11/21/22 Aspirin 325 mg PEG/G-TUBE DAILY 10/27/21 11/21/22 Atorvastatin [Lipitor] 40 mg PEG/G-TUBE DAILY 10/27/21 11/21/22 Clopidogrel [Plavix] 75 mg PEG/G-TUBE DAILY 10/27/21 11/21/22 Fludrocortisone [Florinef] 0.1 mg PEG/G-TUBE BID 12/23/21 11/21/22 Midodrine HCl [ProAmantine] 2.5 mg PEG/G-TUBE BID 04/06/22 11/21/22 Nitroglycerin Sl Tabs [Nitrostat] 0.4 mg SL Q5M PRN 11/21/22 11/21/22 cefUROXime axetiL [Ceftin] 500 mg PEG/G-TUBE BID 11/21/22 11/21/22 methylPREDNISolone [Medrol Dose See Taper PEG/G-TUBE DIRECTED 11/21/22 11/21/22 Pack] Previous Rx's Medication Instructions Recorded guaiFENesin-Coden 100-10MG/5ML 10 ml PO Q6H PRN 3 Days #120 ml 11/21/22 [Robitussin AC] predniSONE [Deltasone] 20 mg PO BID #10 tab 11/21/22 Allergies Allergy/AdvReac Type Severity Reaction Status Date / Time morphine AdvReac Confusion Verified 11/21/22 17:51 Review of Systems ROS Statement: Those systems with pertinent positive or pertinent negative responses have been documented in the HPI. ROS Other: All systems not noted in ROS Statement are negative. Past Medical History Past Medical History: Cancer, GERD/Reflux, Hyperlipidemia, Hypertension, Myocardial Infarction ([place]), Osteoarthritis (OA), Pneumonia, Prostate Disorder Additional Past Medical History / Comment(s): having difficulty swallowing/aspirating w/fluids and food,hx Cancer of head, neck, throat- resolved, had radiation 1999, hypotension (BP fluctuates a lot), Last Myocardial Infarction Date:: 10-29-01 History of Any Multi-Drug Resistant Organisms: None Reported Past Surgical History: Heart Catheterization With Stent Additional Past Surgical History / Comment(s): had a carotid stent placed during CA treatment. 42 lymph nodes removed- SURGERY FOR CANCER OF THE NECK Past Anesthesia/Blood Transfusion Reactions: No Reported Reaction Date of Last Stent Placement:: 04/03/21 Past Psychological History: No Psychological Hx Reported Smoking Status: Never smoker - Past Family History Father Family Medical History: Coronary Artery Disease (CAD), Myocardial Infarction ([place]) Additional Family Medical History / Comment(s): heart disease Mother Family Medical History: No Reported History Additional Family Medical History / Comment(s): heart disease General Exam Limitations: no limitations General appearance: alert, in no apparent distress Head exam: Present: atraumatic, normocephalic, normal inspection Eye exam: Present: normal appearance, PERRL, EOMI. Absent: scleral icterus, conjunctival injection, periorbital swelling ENT exam: Present: normal exam, mucous membranes moist Neck exam: Present: normal inspection. Absent: tenderness, meningismus, lymphad enopathy Respiratory exam: Present: wheezes. Absent: respiratory distress, rales, rhonchi, stridor Cardiovascular Exam: Present: regular rate, normal rhythm, normal heart sounds. Absent: systolic murmur, diastolic murmur, rubs, gallop, clicks GI/Abdominal exam: Present: soft, normal bowel sounds. Absent: distended, tende rness, guarding, rebound, rigid Extremities exam: Present: normal inspection, full ROM, normal capillary refill. Absent: tenderness, pedal edema, joint swelling, calf tenderness Back exam: Present: normal inspection Neurological exam: Present: alert, oriented X3, CN II-XII intact Psychiatric exam: Present: normal affect, normal mood Skin exam: Present: warm, dry, intact, normal color. Absent: rash Course Vital Signs 11/21/22 11/21/22 11/21/22 15:49 17:05 17:10 Temperature 98.9 F 98.3 F Pulse Rate 86 78 Respiratory 22 17 18 Rate Blood Pressure 96/61 135/88 O2 Sat by Pulse 97 96 Oximetry 11/21/22 11/21/22 11/21/22 18:11 18:49 19:23 Temperature 98.2 F 98.2 F Pulse Rate 78 84 80 Respiratory 17 18 Rate Blood Pressure 115/84 156/91 O2 Sat by Pulse 95 96 Oximetry 11/21/22 19:32 Temperature Pulse Rate 80 Respiratory Rate Blood Pressure O2 Sat by Pulse Oximetry EKG Findings - EKG Comments: EKG Findings:: EKG demonstrates sinus rhythm with a rate of 82. VT interval 138. QRS 90. QTC of 411. ST depression in lead 3. J-point elevation in 1, 2, aVL, aVF and V4 through V6 Medical Decision Making - Medical Decision Making Was pt. sent in by a medical professional or institution? PCP office Did you speak to anyone other than the patient for history? Did you review nursing and triage notes? yes and I agree Were old charts reviewed? no Differential Diagnosis? MDM Differential Dyspnea: Coronary syndrome, arrhythmia, tamponade, asthma, COPD, pulmonary embolism, pneumonia, pneumothorax, pulmonary effusion, anaphylaxis, diabetic ketoacidosis, flailed chest, pulmonary contusion, diaphragmatic rupture, anemia, neuromuscular this is not meant to be an all-inclusive list. EKG interpreted by me (3pts min.)? yes X-rays interpreted by me (1pt min.)? yes CT interpreted by me (1pt min.)? no U/S interpreted by me (1pt. min.)? no What testing was considered but not performed? (CT, X-rays, U/S, labs)? Why? none What meds were considered but not given? Why? none Did you discuss the management of the patient with other professionals? no Did you reconcile home meds? no Was smoking cessation discussed for >3mins.? no Was critical care preformed (if so, how long)? no Were there social determinants of health that impacted care today? How? (Home lessness, low income, unemployed, alcoholism, drug addiction, transportation, low edu. Level, literacy, decrease access to med. care, snf, rehab)? no Was there de-escalation of care discussed even if they declined? (Discuss DNR or withdrawal of care, Hospice)? no What co-morbidities impacted this encounter? (DM, HTN, Smoking, COPD, CAD, Cancer, CVA, Hep., AIDS, mental health diagnosis, sleep apnea, morbid obesity)? head and neck cancer, aspiration pna- recurrent, htn, hld Was patient admitted / discharged? Upon arrival patient was placed into room 8. A thorough history and physical exam was performed. IV access was established and laboratory studies are conducted. Chest x-ray is repeated. Laboratory studies are reviewed. White count is normalized and 9. Covid and influenza are not detected. Chest x-ray is performed which does not demonstrate any acute process. I did discuss these results with the patient. As he just started the antibiotics yesterday I do not feel that the patient has failed treatment at this time. I did offer admission however the patient refused and states that he would like to continue the regimen at home and see if he has any improvement in his symptoms. He is to continue the antibiotics as directed. He was given a dose of Rocephin and azithromycin in the emergency department. He is to continue using albuterol treatments but increase them to every 4 hours. I will start the patient on a course of prednisone 40 mg daily. They may stop the Medrol Dosepak. He is additionally given a prescription for codeine cough syrup and informed of the sedation side effects. Patient understood this. He is to follow-up with his primary care doctor however he needs to return in 2 days of his symptoms are still not improving. Patient understood this. Given written and verbal discharge instructions and discharged home in stable condition Undiagnosed new problem with uncertain prognosis? yes Drug Therapy requiring intensive monitoring for toxicity (Heparin, Nitro, Insulin, Cardizem)? no Were any procedures done? no Diagnosis/symptom? acute cough, acute bronchitis Acute, or Chronic, or Acute on Chronic? acute Uncomplicated (without systemic symptoms) or Complicated (systemic symptoms)? complicated Side effects of treatment? allergic reaction Exacerbation, Progression, or Severe Exacerbation] no Poses a threat to life or bodily function? no - Lab Data Result diagrams: 11/21/22 16:45 11/21/22 16:45 Lab Results 11/21/22 11/21/22 11/21/22 Range/Units 16:45 16:45 16:45 WBC 9.0 (3.8-10.6) k/uL RBC 3.97 L (4.30-5.90) m/uL Hgb 12.9 L (13.0-17.5) gm/dL Hct 37.2 L (39.0-53.0) % MCV 93.8 (80.0-100.0) fL MCH 32.6 (25.0-35.0) pg MCHC 34.8 (31.0-37.0) g/dL RDW 12.9 (11.5-15.5) % Plt Count 300 (150-450) k/uL MPV 9.4 Neutrophils % 76 % Lymphocytes % 14 % Monocytes % 7 % Eosinophils % 0 % Basophils % 1 % Neutrophils # 6.8 (1.3-7.7) k/uL Lymphocytes # 1.2 (1.0-4.8) k/uL Monocytes # 0.6 (0-1.0) k/uL Eosinophils # 0.0 (0-0.7) k/uL Basophils # 0.1 (0-0.2) k/uL PT 10.8 (9.0-12.0) sec INR 1.0 (<1.2) APTT 23.4 (22.0-30.0) sec Sodium 135 L (137-145) mmol/L Potassium 4.2 (3.5-5.1) mmol/L Chloride 98 (98-107) mmol/L Carbon Dioxide 32 H (22-30) mmol/L Anion Gap 5 mmol/L BUN 44 H (9-20) mg/dL Creatinine 0.91 (0.66-1.25) mg/dL Est GFR (CKD-EPI)AfAm >90 (>60 ml/min/1.73 sqM) Est GFR (CKD-EPI)NonAf 80 (>60 ml/min/1.73 sqM) Glucose 146 H (74-99) mg/dL Plasma Lactic Acid Elvin (0.7-2.0) mmol/L Calcium 8.3 L (8.4-10.2) mg/dL Total Bilirubin 0.3 (0.2-1.3) mg/dL AST 23 (17-59) U/L ALT 24 (4-49) U/L Alkaline Phosphatase 94 (38-126) U/L Troponin I (0.000-0.034) ng/mL NT-Pro-B Natriuret Pep pg/mL Total Protein 6.5 (6.3-8.2) g/dL Albumin 3.8 (3.5-5.0) g/dL Coronavirus (PCR) (Not Detectd) Influenza Type A RNA (Not Detectd) Influenza Type B (PCR) (Not Detectd) 11/21/22 11/21/22 11/21/22 Range/Units 16:45 16:45 16:45 WBC (3.8-10.6) k/uL RBC (4.30-5.90) m/uL Hgb (13.0-17.5) gm/dL Hct (39.0-53.0) % MCV (80.0-100.0) fL MCH (25.0-35.0) pg MCHC (31.0-37.0) g/dL RDW (11.5-15.5) % Plt Count (150-450) k/uL MPV Neutrophils % % Lymphocytes % % Monocytes % % Eosinophils % % Basophils % % Neutrophils # (1.3-7.7) k/uL Lymphocytes # (1.0-4.8) k/uL Monocytes # (0-1.0) k/uL Eosinophils # (0-0.7) k/uL Basophils # (0-0.2) k/uL PT (9.0-12.0) sec INR (<1.2) APTT (22.0-30.0) sec Sodium (137-145) mmol/L Potassium (3.5-5.1) mmol/L Chloride (98-107) mmol/L Carbon Dioxide (22-30) mmol/L Anion Gap mmol/L BUN (9-20) mg/dL Creatinine (0.66-1.25) mg/dL Est GFR (CKD-EPI)AfAm (>60 ml/min/1.73 sqM) Est GFR (CKD-EPI)NonAf (>60 ml/min/1.73 sqM) Glucose (74-99) mg/dL Plasma Lactic Acid Elvin 1.0 (0.7-2.0) mmol/L Calcium (8.4-10.2) mg/dL Total Bilirubin (0.2-1.3) mg/dL AST (17-59) U/L ALT (4-49) U/L Alkaline Phosphatase (38-126) U/L Troponin I <0.012 (0.000-0.034) ng/mL NT-Pro-B Natriuret Pep 655 pg/mL Total Protein (6.3-8.2) g/dL Albumin (3.5-5.0) g/dL Coronavirus (PCR) (Not Detectd) Influenza Type A RNA (Not Detectd) Influenza Type B (PCR) (Not Detectd) 11/21/22 11/21/22 Range/Units 16:45 16:45 WBC (3.8-10.6) k/uL RBC (4.30-5.90) m/uL Hgb (13.0-17.5) gm/dL Hct (39.0-53.0) % MCV (80.0-100.0) fL MCH (25.0-35.0) pg MCHC (31.0-37.0) g/dL RDW (11.5-15.5) % Plt Count (150-450) k/uL MPV Neutrophils % % Lymphocytes % % Monocytes % % Eosinophils % % Basophils % % Neutrophils # (1.3-7.7) k/uL Lymphocytes # (1.0-4.8) k/uL Monocytes # (0-1.0) k/uL Eosinophils # (0-0.7) k/uL Basophils # (0-0.2) k/uL PT (9.0-12.0) sec INR (<1.2) APTT (22.0-30.0) sec Sodium (137-145) mmol/L Potassium (3.5-5.1) mmol/L Chloride (98-107) mmol/L Carbon Dioxide (22-30) mmol/L Anion Gap mmol/L BUN (9-20) mg/dL Creatinine (0.66-1.25) mg/dL Est GFR (CKD-EPI)AfAm (>60 ml/min/1.73 sqM) Est GFR (CKD-EPI)NonAf (>60 ml/min/1.73 sqM) Glucose (74-99) mg/dL Plasma Lactic Acid Elvin (0.7-2.0) mmol/L Calcium (8.4-10.2) mg/dL Total Bilirubin (0.2-1.3) mg/dL AST (17-59) U/L ALT (4-49) U/L Alkaline Phosphatase (38-126) U/L Troponin I (0.000-0.034) ng/mL NT-Pro-B Natriuret Pep pg/mL Total Protein (6.3-8.2) g/dL Albumin (3.5-5.0) g/dL Coronavirus (PCR) Not Detected (Not Detectd) Influenza Type A RNA Not Detected (Not Detectd) Influenza Type B (PCR) Not Detected (Not Detectd) Disposition Clinical Impression: Cough, COPD exacerbation, Acute bronchiolitis Disposition: HOME SELF-CARE Condition: Stable Instructions (If sedation given, give patient instructions): Acute Bronchitis (ED) Additional Instructions: Please start the steroid today. Discontinue the Medrol dose pack. Continue your antibiotics and do breathing treatments every 4 hours. Use the cough syrup when not driving. Follow-up with your doctor and return if your symptoms don't improve Prescriptions: predniSONE [Deltasone] 20 mg PO BID #10 tab guaiFENesin-Coden 100-10MG/5ML [Robitussin AC] 10 ml PO Q6H PRN 3 Days #120 ml PRN Reason: Cough Is patient prescribed a controlled substance at d/c from ED?: Yes When asked, does pt state using other controlled substances?: No If prescribed controlled substance>3 days was MAPS reviewed?: Prescribed <3 Days Referrals: Gerald Nguyen MD [Primary Care Provider] - 1-2 days Time of Disposition: 18:37
[2022-11-21 17:26] LABS: ALT 24 U/L (4-49); AST 23 U/L (17-59); African American GFR (CKD) >90 (>60 ml/min/1.73 sqM); Albumin 3.8 g/dL (3.5-5.0); Alkaline Phosphatase 94 U/L (38-126); Anion Gap 5 mmol/L; Blood Urea Nitrogen 44 mg/dL (9-20); Calcium 8.3 mg/dL (8.4-10.2); Carbon Dioxide 32 mmol/L (22-30); Chloride 98 mmol/L (98-107); Glucose 146 mg/dL (74-99); Non-African American GFR(CKD) 80 (>60 ml/min/1.73 sqM); Potassium 4.2 mmol/L (3.5-5.1); Sodium 135 mmol/L (137-145); Total Bilirubin 0.3 mg/dL (0.2-1.3); Total Protein 6.5 g/dL (6.3-8.2)
[2022-11-21 17:59] LABS: Partial Thromboplastin Time 23.4 sec (22.0-30.0); Prothrombin Time 10.8 sec (9.0-12.0)
[2022-11-21 18:11] VITALS: TEMP 98.2
[2022-11-21] MEDS ORDERED: guaiFENesin-Coden 100-10MG/5ML 10 ML CUP PO STA (18:26)
[2022-11-21] MEDS ORDERED: AZITHROMYCIN 500 MG TAB PO STA (18:26)
[2022-11-21] MEDS ORDERED: IPRATROPIUM-ALBUTEROL 3 ML NEB INHALATION STA (18:26)
[2022-11-21] MEDS ORDERED: cefTRIAXone IN SWFI 1,000 MG/10 ML SYRINGE IVP STA (18:26)
[2022-11-21 18:50] VITALS: BP 156/91; RESP 18
[2022-11-21 19:29] VITALS: PULSE 80
== END 2022-11-21 19:34 | disposition home or self-care (01) ==
LOC: EC 15:31
DX: J44.1 Chronic obstructive pulmonary disease with (acute) exacerbation (principal); I25.2 Old myocardial infarction; K21.9 Gastro-esophageal reflux disease without esophagitis; Z79.52 Long term (current) use of systemic steroids; Z79.82 Long term (current) use of aspirin; Z79.02 Long term (current) use of antithrombotics/antiplatelets; Z79.899 Other long term (current) drug therapy; Z88.5 Allergy status to narcotic agent; Z20.822 Contact with and (suspected) exposure to COVID-19
CPT/HCPCS: 36415; 94640; 93005; 83880; 80053; 83605; 84484; 85025; 85610; 85730; 87502; 87635; 71046; 99285; 96374; 96361; J0696

== ENCOUNTER 2023-02-13 09:21 | Day surgery (SDC) | payer MEDICARE, BC ==
[~2023-02-13 09:21] MED LIST changes: -LACTATED RINGERS 1,000 ML IV ONE; +LIDOCAINE 1% (10MG/ML) FOR IV START INTRADERMA PRN; -PROPOFOL 10 MG/ML 20 ML VIAL IV ONE
[2023-02-13] MEDS ORDERED: LACTATED RINGERS 1,000 ML IV ONE (10:29)
[2023-02-13 10:42] LABS: Glucose,Whole Blood 111 mg/dL (70-110)
[2023-02-13 10:43] VITALS: TEMP 97
[2023-02-13] MEDS ORDERED: LIDOCAINE 2% INJ 20 MG/ML (2 ML VIAL) ONE (11:00)
[2023-02-13] MEDS ORDERED: PROPOFOL 10 MG/ML 20 ML VIAL IV ONE (11:00)
--- NOTE | 2023-02-13 11:07 | P.GSHP ---
History of Present Illness H&P Date: 02/13/23 Chief Complaint: Aspiration, malnutrition 77-year-old male here for gastrostomy tube replacement. Patient has had this catheter placed for the last 2 years or so. Has had increased breakdown of the tube itself. Still using on a daily basis although patient states he would like to discuss further with speech pathology. Past Medical History Past Medical History: Coronary Artery Disease (CAD), Cancer, CVA/TIA, GERD/Reflux, Hyperlipidemia, Hypertension, Myocardial Infarction ([place]), Osteoarthritis (OA), Pneumonia, Prostate Disorder Additional Past Medical History / Comment(s): having difficulty swallowing/ aspirating w/fluids and food,hx Cancer of head, neck, throat-resolved, had radiation 1999, hypotension (BP fluctuates a lot) has been better with pump feeding, has home care through [facility]. g tube. treated for pneumonia in [facility] end november begining of December of 2022 Last Myocardial Infarction Date:: 2019 History of Any Multi-Drug Resistant Organisms: None Reported Past Surgical History: Heart Catheterization With Stent Additional Past Surgical History / Comment(s): had a carotid stent placed during CA treatment. 42 lymph nodes removed- SURGERY FOR CANCER OF THE NECK , peg tub placement Past Anesthesia/Blood Transfusion Reactions: No Reported Reaction Date of Last Stent Placement:: 04/03/21 Smoking Status: Never smoker - Past Family History Father Family Medical History: Coronary Artery Disease (CAD), Myocardial Infarction ([place]) Additional Family Medical History / Comment(s): heart disease Mother Family Medical History: No Reported History Additional Family Medical History / Comment(s): heart disease Medications and Allergies Home Medications Medication Instructions Recorded Confirmed Type Aspirin 325 mg PEG/G-TUBE DAILY 10/27/21 02/09/23 History Atorvastatin [Lipitor] 40 mg PEG/G-TUBE DAILY 10/27/21 02/09/23 History Fludrocortisone [Florinef] 0.1 mg PEG/G-TUBE BID 12/23/21 02/09/23 History Cetirizine HCl [Zyrtec] 10 mg PEG/G-TUBE DAILY 02/09/23 02/09/23 History Magnesium Oxide [Magnesium] 500 mg PEG/G-TUBE DAILY 02/09/23 02/09/23 History Allergies Allergy/AdvReac Type Severity Reaction Status Date / Time morphine AdvReac Confusion Verified 02/09/23 10:16 Surgical - Exam Vital Signs Temp Pulse Resp BP Pulse Ox 97 F L 78 18 151/83 97 02/13/23 10:32 02/13/23 10:32 02/13/23 10:32 02/13/23 10:32 02/13/23 10:32 Physical exam: General: Well-developed, well-nourished HEENT: Normocephalic, sclerae nonicteric Abdomen: Nontender, nondistended Extremities: No edema Neuro: Alert and oriented Results - Labs Abnormal Lab Results - Last 24 Hours (Table) 02/13/23 Range/Units 10:41 POC Glucose (mg/dL) 111 H (70-110) mg/dL Assessment and Plan (1) Dysphagia Narrative/Plan: 77-year-old male with aspiration and malnutrition. We'll proceed with EGD and PEG tube replacement. Current Visit: No Status: Acute Code(s): R13.10 - DYSPHAGIA, UNSPECIFIED SNOMED Code(s): 41597037
--- NOTE | 2023-02-13 11:19 | P.PCN ---
Date of Procedure: 02/13/23 Procedure(s) Performed: PREOPERATIVE DIAGNOSIS: Malnutrition, aspiration POSTOPERATIVE DIAGNOSIS: Same PROCEDURE: EGD with PEG tube replacement SURGEON: Julissa EBL: Minimal ANESTHESIA: Sedation COMPLICATIONS: None OPERATIVE PROCEDURE: The patient was placed in the supine position on the endoscopy table. The patient was sedated per anesthesia that time. The Olympus gastroscope was inserted into the oropharynx and passed under direct visualization to the region of the duodenum. No obstruction was seen. The pylorus was widely patent. The stomach was carefully inspected. The previous PEG tube was noted. This was a non-balloon catheter. Attempts at removing the non-balloon catheter were actually surprisingly unsuccessful as the non-balloon portion of the catheter was not coming through the abdominal wall. A Dotson net was used to grab the catheter. The catheter was then cut externally. The Dotson net and the inner portion of the gastrostomy tube was removed from the oropharynx at that time. A 20-Maori 20 mL balloon replacement catheter was placed without difficulty. We do not have any non-balloon catheters apparently at this time. The balloon was filled to 20 mL. No bleeding was seen. The esophagus was inspected. There was a small hiatal hernia. Esophagus was otherwise normal. DISPOSITION: Stable to recovery room
[2023-02-13 11:50] VITALS: BP 160/83; PULSE 76; RESP 16
== END 2023-02-13 12:12 | disposition home or self-care (01) ==
LOC: ORWHC2ENDO 09:21
PROVIDERS: ATTEND Surgery
DX: E46 Unspecified protein-calorie malnutrition (principal); I25.10 Atherosclerotic heart disease of native coronary artery without angina pectoris; I25.2 Old myocardial infarction; I10 Essential (primary) hypertension; E78.5 Hyperlipidemia, unspecified; M19.90 Unspecified osteoarthritis, unspecified site; Z98.890 Other specified postprocedural states; Z82.49 Family history of ischemic heart disease and other diseases of the circulatory system; Z79.82 Long term (current) use of aspirin; Z88.5 Allergy status to narcotic agent; Z79.899 Other long term (current) drug therapy
CPT/HCPCS: 43246; J2704; J2001

== ENCOUNTER → 2023-04-02 | Outpatient (CLI) | payer MEDICARE, BC ==
--- NOTE | 2023-04-02 11:35 | FL ---
EXAMINATION TYPE: FL barium swallow w video DATE OF EXAM: 04/02/2023 MODIFIED SWALLOW / DEGLUTITION STUDY CLINICAL HISTORY: Dysphagia. History of throat cancer. TECHNIQUE: Deglutition study is performed utilizing thin liquid barium, honey and nectar thick liqui d barium, and barium thick pudding. Total dose area product (DAP) in uGy*m?, mGy*cm? (or similar): n /a. There was 68 seconds of fluoroscopic time utilized during procedure. There are 0 spot images save d. COMPARISON: None. FINDINGS: The oral and pharyngeal phases show satisfactory initiation and propagation with all modali ties tested. There is aspiration with all modalities tested. No improvement with chin tuck procedure. [id number] pharyngeal residue was appreciated. IMPRESSION: Aspiration remains present with multiple modalities. Please refer to speech therapist no ann for further details if necessary.
== END | disposition home or self-care (01) ==
LOC: RADFLMAIN 10:43
PROVIDERS: ATTEND Otolaryngology
DX: R13.13 Dysphagia, pharyngeal phase (principal)
CPT/HCPCS: 74230

== ENCOUNTER 2023-10-13 18:48 | Emergency (ER) | payer BC, MEDICARE ==
[2023-10-13 19:03] VITALS: TEMP 97.8
--- NOTE | 2023-10-13 19:22 | ED ---
General Adult HPI - General Chief complaint: Recheck/Abnormal Lab/Rx Stated complaint: feeding tube fell out Time Seen by Provider: 10/13/23 18:58 Source: patient Mode of arrival: ambulatory Limitations: no limitations - History of Present Illness Initial comments: It is a pleasant 78-year-old gentleman who has a PEG tube in place for 2-1/2 years due to recurrent aspiration pneumonia. Patient reports that he was just sitting watching television with his PEG tube fell out approximately 5:30 PM today so he came to the hospital. No other complaints no pain. Last tube exchange was January of this year - Related Data Home Medications Medication Instructions Recorded Confirmed Aspirin 325 mg PEG/G-TUBE DAILY 10/27/21 02/09/23 Atorvastatin [Lipitor] 40 mg PEG/G-TUBE DAILY 10/27/21 02/09/23 Fludrocortisone [Florinef] 0.1 mg PEG/G-TUBE BID 12/23/21 02/09/23 Cetirizine HCl [Zyrtec] 10 mg PEG/G-TUBE DAILY 02/09/23 02/09/23 Magnesium Oxide [Magnesium] 500 mg PEG/G-TUBE DAILY 02/09/23 02/09/23 Allergies Allergy/AdvReac Type Severity Reaction Status Date / Time morphine AdvReac Confusion Verified 10/13/23 18:51 Review of Systems ROS Statement: Those systems with pertinent positive or pertinent negative responses have been documented in the HPI. ROS Other: All systems not noted in ROS Statement are negative. Past Medical History Past Medical History: Coronary Artery Disease (CAD), Cancer, CVA/TIA, GERD/Reflux, Hyperlipidemia, Hypertension, Myocardial Infarction ([place]), Osteoarthritis (OA), Pneumonia, Prostate Disorder Additional Past Medical History / Comment(s): having difficulty swallowing/aspirating w/fluids and food,hx Cancer of head, neck, throat- resolved, had radiation 1999, hypotension (BP fluctuates a lot) has been be tter with pump feeding, has home care through [facility]. g tube. treated for pneumonia in [facility] end of November begining of December of 2022 Last Myocardial Infarction Date:: 2019 History of Any Multi-Drug Resistant Organisms: None Reported Past Surgical History: Heart Catheterization With Stent Additional Past Surgical History / Comment(s): had a carotid stent placed during CA treatment. 42 lymph nodes removed- SURGERY FOR CANCER OF THE NECK , peg tub placement Past Anesthesia/Blood Transfusion Reactions: No Reported Reaction Date of Last Stent Placement:: 04/03/21 Past Psychological History: No Psychological Hx Reported Smoking Status: Never smoker Past Alcohol Use History: None Reported Past Drug Use History: None Reported - Past Family History Father Family Medical History: Coronary Artery Disease (CAD), Myocardial Infarction ([place]) Additional Family Medical History / Comment(s): heart disease Mother Family Medical History: No Reported History Additional Family Medical History / Comment(s): heart disease General Exam - General Exam Comments Initial Comments: Physical Exam GENERAL: Patient is well-developed and well-nourished Patient is nontoxic and well-hydrated and is in no distress HENT: Normocephalic, Atraumatic. EYES: PERRL, EOMI PULMONARY: Unlabored respirations. CARDIOVASCULAR: RRR Warm and well perfused extremities ABDOMEN: Soft, Non-distended there is a well established PEG tube tract, a 20-Moroccan PEG tube was placed without difficulty SKIN: No rashes or bruising : Deferred NEUROLOGIC: Alert and oriented Normal speech Normal gait MUSCULOSKELETAL: Moving all extremities with no apparent injury PSYCHIATRIC: No SI/HI Limitations: no limitations Course Vital Signs 10/13/23 18:51 Temperature 97.8 F Pulse Rate 74 Respiratory 16 Rate Blood Pressure 168/83 O2 Sat by Pulse 99 Oximetry Medical Decision Making - Medical Decision Making Was pt. sent in by a medical professional or institution ([facility], [facility] [employer], urgent care, hospital, or retirement...) When possible be specific @ -No Did you speak to anyone other than the patient for history (EMS, parent, family, police, friend...)? What history was obtained from this source @ - Did you review nursing and triage notes (agree or disagree)? Why? @ -I reviewed and agree with nursing and triage notes Were old charts reviewed (outside hosp., previous admission, EMS record, old EKG, old radiological studies, urgent care reports/EKG's, retirement records)? Report findings @ -No old charts were reviewed Differential Diagnosis (chest pain, altered mental status, abdominal pain women, abdominal pain men, vaginal bleeding, weakness, fever, dyspnea, syncope, headache, dizziness, GI bleed, back pain, seizure, CVA, palpatations, mental health)? @ -not applicable EKG interpreted by me (3pts min.). @ -As above X-rays interpreted by me (1pt min.). @ Contrast in the bowel indicative of PEG tube in place CT interpreted by me (1pt min.). @ -None done U/S interpreted by me (1pt. min.). @ -None done What testing was considered but not performed or refused? (CT, X-rays, U/S, labs)? Why? @ -None What meds were considered but not given or refused? Why? @ -None Did you discuss the management of the patient with other professionals (professionals i.e. , PA, ST[employer]ER [employer], lab, RT, psych nurse, social work case manager, eastern philosophy professor, teacher, legal officer, dependency case manager)? Give summary @ -No Was smoking cessation discussed for >3mins.? @ -No Was critical care preformed (if so, how long)? @ -No Were there social determinants of health that impacted care today? How? (Homelessness, low income, unemployed, alcoholism, drug addiction, transportation, low edu. Level, literacy, decrease access to med. care, [facility], rehab)? @ -No Was there de-escalation of care discussed even if they declined (Discuss DNR or withdrawal of care, Hospice)? DNR status @ -No What co-morbidities impacted this encounter? (DM, HTN, Smoking, COPD, CAD, Cancer, CVA, ARF, Chemo, Hep., AIDS, mental health diagnosis, sleep apnea, morbid obesity)? @ -None Was patient admitted / discharged? Hospital course, mention meds given and route, prescriptions, significant lab abnormalities, going to OR and other pertinent info. @ Discharge The patient was seen and evaluated, history is obtained from the patient and at bedside. Patient has well established tract for his PEG tube. 20- Moroccan PEG tube was placed in a tract without difficulty. X-ray with contrast was performed and undressed is in the lumen of the bowel indicating the PEG tube is in good position. Patient be discharged home in stable condition. Undiagnosed new problem with uncertain prognosis? @ -No Drug Therapy requiring intensive monitoring for toxicity (Heparin, Nitro, Insulin, Cardizem)? @ -No Were any procedures done? @ -No Diagnosis/symptom? @ PEG tube dysfunction Acute, or Chronic, or Acute on Chronic? @ -default Uncomplicated (without systemic symptoms) or Complicated (systemic symptoms)? @ -default Side effects of treatment? @ -No Exacerbation, Progression, or Severe Exacerbation? @ -No Poses a threat to life or bodily function? How? (Chest pain, [place], [place], pneumonia, PE, COPD, DKA, ARF, appy, cholecystitis, CVA, Diverticulitis, Homicidal, Suicidal, threat to staff... and all critical care pts) @ -No Disposition Clinical Impression: PEG tube malfunction Disposition: HOME SELF-CARE Condition: Stable Is patient prescribed a controlled substance at d/c from ED?: No Referrals: Gerald Nguyen MD [Primary Care Provider] - 1-2 days
--- NOTE | 2023-10-13 20:05 | XR ---
EXAMINATION TYPE: XR KUB DATE OF EXAM: 10/13/2023 7:40 PM CLINICAL INDICATION:Male, 78 years old with history of PEG tube placement - with contrast; [facility] COMPARISON: 11/21/2022. TECHNIQUE: Contrast injected through indwelling gastrostomy tube partially fills the lumen of the sto mach and duodenum. The abdominal bowel gas pattern is nonobstructive. No dilated bowel or air-fluid levels. Mild/moderat e stool in the colon. No visible pneumoperitoneum. Clustered radiodensities again seen in a linear ar ray towards the right lung base, again suggest calcifications. Osseous structures appear grossly inta ct as seen, with multilevel thoracolumbar degenerative disc disease noted. IMPRESSION: Gastrostomy tube in place. No definite evidence of extra luminal contrast.
[2023-10-13 20:09] VITALS: BP 152/84; PULSE 88; RESP 18
== END 2023-10-13 19:59 | disposition home or self-care (01) ==
LOC: EC 18:48
DX: K94.23 Gastrostomy malfunction (principal); I10 Essential (primary) hypertension; I25.10 Atherosclerotic heart disease of native coronary artery without angina pectoris; I25.2 Old myocardial infarction; E78.5 Hyperlipidemia, unspecified; Z79.82 Long term (current) use of aspirin; Z79.899 Other long term (current) drug therapy; Z86.73 Personal history of transient ischemic attack (TIA), and cerebral infarction without residual deficits; Z88.5 Allergy status to narcotic agent; Z95.5 Presence of coronary angioplasty implant and graft
CPT/HCPCS: 43762; 99283; 74018; Q9967

== ENCOUNTER 2023-10-16 09:17 | Emergency (ER) | payer MEDICARE, BC ==
--- NOTE | 2023-10-16 13:01 | ED ---
General Adult HPI - General Chief complaint: Recheck/Abnormal Lab/Rx Stated complaint: feeding tube complication Time Seen by Provider: 10/16/23 10:23 Source: patient, RN notes reviewed Mode of arrival: ambulatory - History of Present Illness Initial comments: 78-year-old male with no significant past medical history presents the emergency department with a chief complaint of PEG tube problem. Patient reports that the tubing is stuck to his PEG tube instrument. He has attempted to pull out without success. He reports that the tube is still functioning properly. He any fevers, pain or redness at the site. - Related Data Home Medications Medication Instructions Recorded Confirmed Aspirin 325 mg PEG/G-TUBE DAILY 10/27/21 02/09/23 Atorvastatin [Lipitor] 40 mg PEG/G-TUBE DAILY 10/27/21 02/09/23 Fludrocortisone [Florinef] 0.1 mg PEG/G-TUBE BID 12/23/21 02/09/23 Cetirizine HCl [Zyrtec] 10 mg PEG/G-TUBE DAILY 02/09/23 02/09/23 Magnesium Oxide [Magnesium] 500 mg PEG/G-TUBE DAILY 02/09/23 02/09/23 Allergies Allergy/AdvReac Type Severity Reaction Status Date / Time morphine AdvReac Confusion Verified 10/16/23 09:37 Review of Systems ROS Statement: Those systems with pertinent positive or pertinent negative responses have been documented in the HPI. ROS Other: All systems not noted in ROS Statement are negative. Past Medical History Past Medical History: Coronary Artery Disease (CAD), Cancer, CVA/TIA, GERD/Reflux, Hyperlipidemia, Hypertension, Myocardial Infarction ([place]), Osteoarthritis (OA), Pneumonia, Prostate Disorder Additional Past Medical History / Comment(s): having difficulty swallowing/aspirating w/fluids and food,hx Cancer of head, neck, throat- resolved, had radiation 1999, hypotension (BP fluctuates a lot) has been better with pump feeding, has home care through [facility]. g tube. treated for pneumonia in [facility] end november begining of December of 2022 Last Myocardial Infarction Date:: 2019 History of Any Multi-Drug Resistant Organisms: None Reported Past Surgical History: Heart Catheterization With Stent Additional Past Surgical History / Comment(s): had a carotid stent placed during CA treatment. 42 lymph nodes removed- SURGERY FOR CANCER OF THE NECK , peg tub placement Past Anesthesia/Blood Transfusion Reactions: No Reported Reaction Date of Last Stent Placement:: 04/03/21 Past Psychological History: No Psychological Hx Reported Smoking Status: Never smoker Past Alcohol Use History: None Reported Past Drug Use History: None Reported - Past Family History Father Family Medical History: Coronary Artery Disease (CAD), Myocardial Infarction ([place]) Additional Family Medical History / Comment(s): heart disease Mother Family Medical History: No Reported History Additional Family Medical History / Comment(s): heart disease General Exam - General Exam Comments Initial Comments: General: Alert, in no acute distress Head: atraumatic normocephalic. Eyes PERRL, EOMI intact, mucous membranes moist Respiratory: Lungs clear to auscultation bilaterally Cardiovascular: Regular rate and rhythm Abdominal: Soft without guarding or rebound, PEG tube site to the left upper abdomen without erythema, purulent discharge from the site. Extremities: Normal inspection with full range of motion and normal capillary refill Neuroogic: alert and oriented 3, CN II-XII intact, able to ambulate with steady gait Skin: warm dry and intact with normal color Course Vital Signs 10/16/23 10/16/23 09:35 13:13 Temperature 97.6 F 97.9 F Pulse Rate 79 78 Respiratory 18 16 Rate Blood Pressure 129/80 121/78 O2 Sat by Pulse 100 99 Oximetry - Reevaluation(s) Reevaluation #1: 10/16/23 12:01 and evaluated. Patient able to have peg tube flushed without difficulty. Agreeable with the plan for discharge home. Medical Decision Making - Medical Decision Making Was pt. sent in by a medical professional or institution ([facility], COLOR DRUM WORKER, urgent care, hospital, or usp...) When possible be specific @ -[No] Did you speak to anyone other than the patient for history (EMS, parent, family, police, friend...)? What history was obtained from this source @ -[No] Did you review nursing and triage notes (agree or disagree)? Why? @ -[I reviewed and agree with nursing and triage notes] Were old charts reviewed (outside hosp., previous admission, EMS record, old EKG, old radiological studies, urgent care reports/EKG's, usp records)? Report findings @ -[No old charts were reviewed] Differential Diagnosis (chest pain, altered mental status, abdominal pain women, abdominal pain men, vaginal bleeding, weakness, fever, dyspnea, syncope, headache, dizziness, GI bleed, back pain, seizure, CVA, palpatations, mental health, musculoskeletal)? @ -[not applicable] EKG interpreted by me (3pts min.). @ -[As above] X-rays interpreted by me (1pt min.). @ -[None done] CT interpreted by me (1pt min.). @ -[None done] U/S interpreted by me (1pt. min.). @ -[None done] What testing was considered but not performed or refused? (CT, X-rays, U/S, labs)? Why? @ -[None] What meds were considered but not given or refused? Why? @ -[None] Did you discuss the management of the patient with other professionals (professionals i.e. , PA, COLOR DRUM WORKER, lab, RT, psych nurse, social media coordinator, president mortgage company, teacher, strike warfare/missile systems officer, case mgr)? Give summary @ -[No] Was smoking cessation discussed for >3mins.? @ -[No] Was critical care preformed (if so, how long)? @ -[No] Were there social determinants of health that impacted care today? How? (Homelessness, low income, unemployed, alcoholism, drug addiction, transportation, low edu. Level, literacy, decrease access to med. care, group home, rehab)? @ -[No] Was there de-escalation of care discussed even if they declined (Discuss DNR or withdrawal of care, Hospice)? DNR status @ -[No] What co-morbidities impacted this encounter? (DM, HTN, Smoking, COPD, CAD, Cancer, CVA, ARF, Chemo, Hep., AIDS, mental health diagnosis, sleep apnea, morbid obesity)? @ -[None] Was patient admitted / discharged? Hospital course, mention meds given and route, prescriptions, significant lab abnormalities, going to OR and other pertinent info. @ -Discharged. This is a pleasant 78-year-old male who presents the emergency department with a chief complaint PEG tube problem. Patient had a thorough history and physical exam performed. Connection to med was changed out. Patient able to have a PEG tube flushed without difficulty. He tolerated well. Audible abdominal sounds heard status post flushing. Patient agreeable with the plan discharge home. Denise Agarwal, case mgr to follow up with patient tomorrow to ensure proper function of PEG tube. Return precautions were discussed at length. Discharge stable condition. Case is discussed with Dr. Potts, ED attending who agrees with plan of care Undiagnosed new problem with uncertain prognosis? @ -[No] Drug Therapy requiring intensive monitoring for toxicity (Heparin, Nitro, Insulin, Cardizem)? @ -[No] Were any procedures done? @ -[No] Diagnosis/symptom? @ -Peg- Tube Malfunction Acute, or Chronic, or Acute on Chronic? @ -Acute Uncomplicated (without systemic symptoms) or Complicated (systemic symptoms)? @ -Uncomplicated Side effects of treatment? @ -[No] Exacerbation, Progression, or Severe Exacerbation? @ -[No] Poses a threat to life or bodily function? How? (Chest pain, [place], [place], pneumonia, PE, COPD, DKA, ARF, appy, cholecystitis, CVA, Diverticulitis, Homicidal, Suicidal, threat to staff... and all critical care pts) @ -Low likelihood Disposition Clinical Impression: PEG tube malfunction Disposition: HOME SELF-CARE Condition: Stable Instructions (If sedation given, give patient instructions): How to Use and Care for Your PEG Tube (ED) Additional Instructions: Please monitor symptoms closely Return to the nearest emergency department if worsening symptoms Is patient prescribed a controlled substance at d/c from ED?: No Referrals: Gerald Nguyen MD [Primary Care Provider] - 1-2 days Time of Disposition: 13:00
[2023-10-16 13:39] VITALS: BP 121/78; PULSE 78; RESP 16; TEMP 97.9
== END 2023-10-16 13:15 | disposition home or self-care (01) ==
LOC: EC 09:17
DX: K94.23 Gastrostomy malfunction (principal); I25.10 Atherosclerotic heart disease of native coronary artery without angina pectoris; E78.5 Hyperlipidemia, unspecified; I10 Essential (primary) hypertension; I25.2 Old myocardial infarction; M19.90 Unspecified osteoarthritis, unspecified site; Z86.73 Personal history of transient ischemic attack (TIA), and cerebral infarction without residual deficits; Z88.5 Allergy status to narcotic agent; Z79.82 Long term (current) use of aspirin; Z79.899 Other long term (current) drug therapy
CPT/HCPCS: 99283

== ENCOUNTER 2023-11-27 07:18 | Day surgery (SDC) | payer MEDICARE, BC ==
[2023-11-26 09:41] VITALS: BMI 23.5
[2023-11-27 08:18] VITALS: TEMP 96.7
[2023-11-27] MEDS ORDERED: LIDOCAINE 1% INJ 10MG/ML (20 ML MDV) ONE (08:23)
[2023-11-27] MEDS ORDERED: PROPOFOL 10 MG/ML 20 ML VIAL IV ONE (08:23)
--- NOTE | 2023-11-27 08:42 | P.PCN ---
Date of Procedure: 11/27/23 Procedure(s) Performed: Preoperative Dx: Dysphagia, malnutrition, malfunctioning PEG tube Postoperative Dx: Same Procedure: EGD with PEG tube replacement Anesthesia: Sedation Endoscopist: Dr. Costa Specimens: None Endoscopic Procedure: The patient was on the endoscopy table in the left decubitus position. The Olympus gastroscope was inserted into the oropharynx and passed under direct visualization to the region of the third portion of the duodenum. From that point the scope was slowly withdrawn inspecting all surfaces carefully. There were no neoplastic inflammatory or polypoid lesions throughout the duodenum. The pylorus was widely patent. The stomach was carefully inspected. There was mild gastritis present. The patient's balloon replacement tube was noted in the distal body of the stomach. The balloon was deflated. It was then removed. A new 20 Bel[place]an nonballoon replacement was used to replace the existing catheter. This was advanced without difficulty. The feeding adapter was applied. Retroflexion revealed a small hiatal hernia. The esophagus was then carefully examined. There were no neoplastic inflammatory or polypoid lesions throughout the visualized esophagus. The patient was then taken to the recovery room in stable condition per anesthesia guidelines. Recommendations: Resume diet. Resume tube feeds. Replace catheter approximately 1 year.
[2023-11-27 09:18] VITALS: BP 117/70; PULSE 71
[2023-11-27 09:19] VITALS: RESP 18
== END 2023-11-27 09:29 | disposition home or self-care (01) ==
LOC: ORWHC2ENDO 07:18
PROVIDERS: ATTEND Surgery
DX: E46 Unspecified protein-calorie malnutrition (principal); K94.23 Gastrostomy malfunction; K44.9 Diaphragmatic hernia without obstruction or gangrene; K21.9 Gastro-esophageal reflux disease without esophagitis; I25.10 Atherosclerotic heart disease of native coronary artery without angina pectoris; I10 Essential (primary) hypertension; I25.2 Old myocardial infarction; M19.90 Unspecified osteoarthritis, unspecified site; N42.9 Disorder of prostate, unspecified; Z95.5 Presence of coronary angioplasty implant and graft; Z98.890 Other specified postprocedural states; Z79.82 Long term (current) use of aspirin; Z79.899 Other long term (current) drug therapy; Z88.5 Allergy status to narcotic agent
CPT/HCPCS: 43246; J2001; J2704; B4087

== ENCOUNTER 2024-12-23 07:38 | Day surgery (SDC) | payer MEDICARE, BC ==
[2024-12-23] MEDS: LACTATED RINGERS 1,000 ML IV SCH (09:10)
[2024-12-23 09:13] VITALS: RESP 16; TEMP 97.6
[2024-12-23] MEDS: IV FLUID CONTINUATION 1,000 ML IV ONE (09:16)
[2024-12-23] MEDS ORDERED: PROPOFOL 10 MG/ML 20 ML VIAL IV ONE (09:18)
--- NOTE | 2024-12-23 09:20 | P.GSHP ---
History of Present Illness H&P Date: 12/23/24 Chief Complaint: Malnutrition, aspiration 79-year-old male here for EGD with PEG tube replacement. The patient's catheter has a leak in it. Otherwise doing fine. Still using the catheter. Past Medical History Past Medical History: Coronary Artery Disease (CAD), Cancer, CVA/TIA, GERD/Reflux, Hyperlipidemia, Hypertension, Myocardial Infarction ([place]), Osteoarthritis (OA), Pneumonia Additional Past Medical History / Comment(s): having difficulty swallowing/aspirating w/fluids and food,hx Cancer of head, neck, throat- resolved, had radiation 1999, hypotension (BP fluctuates a lot) has been better with pump feeding, . treated for pneumonia in [facility] end november begining of December of 2022 Last Myocardial Infarction Date:: 2019 History of Any Multi-Drug Resistant Organisms: None Reported Past Surgical History: Heart Catheterization With Stent Additional Past Surgical History / Comment(s): had a carotid stent , placed during CA treatment. 42 lymph nodes removed- SURGERY FOR CANCER OF THE NECK , peg tub placement, states 3 heart stents Past Anesthesia/Blood Transfusion Reactions: No Reported Reaction Additional Past Anesthesia/Blood Transfusion Reaction / Comment(s): no blood transfusion Date of Last Stent Placement:: 04/03/21 Smoking Status: Never smoker - Past Family History Father Family Medical History: Coronary Artery Disease (CAD), Myocardial Infarction ([place]) Additional Family Medical History / Comment(s): heart disease Mother Family Medical History: No Reported History Additional Family Medical History / Comment(s): heart disease Medications and Allergies Home Medications Medication Instructions Recorded Confirmed Type Aspirin 325 mg PEG/G-TUBE DAILY 10/27/21 12/19/24 History Atorvastatin [Lipitor] 40 mg PEG/G-TUBE DAILY 11/26/23 12/23/24 History Famotidine 20 mg PEG/G-TUBE DAILY 11/26/23 12/23/24 History Allergies Allergy/AdvReac Type Severity Reaction Status Date / Time morphine AdvReac Confusion Verified 12/23/24 08:50 Surgical - Exam Vital Signs Temp Pulse Resp BP Pulse Ox 97.6 F 78 16 171/83 98 12/23/24 09:05 12/23/24 09:05 12/23/24 09:05 12/23/24 09:05 12/23/24 09:05 Physical exam: General: Well-developed, well-nourished HEENT: Normocephalic, sclerae nonicteric Abdomen: Nontender, nondistended, PEG tube left upper quadrant Extremities: No edema Neuro: Alert and oriented Assessment and Plan (1) Dysphagia Narrative/Plan: Will proceed with EGD and PEG tube replacement at this time. Current Visit: No Status: Acute Code(s): R13.10 - DYSPHAGIA, UNSPECIFIED SNOMED Code(s): 64289195
--- NOTE | 2024-12-23 09:33 | P.PCN ---
Date of Procedure: 12/23/24 Procedure(s) Performed: Preoperative Dx: Malfunctioning PEG tube, aspiration, dysphagia Postoperative Dx: EGD with PEG tube replacement Procedure: EGD with Bx Anesthesia: Sedation Endoscopist: Dr. Costa Specimens: None Endoscopic Procedure: The patient was on the endoscopy table in the left decubitus position. The Olympus gastroscope was inserted into the oropharynx and passed under direct visualization to the region of the third portion of the duodenum. From that point the scope was slowly withdrawn inspecting all surfaces carefully. There were no neoplastic inflammatory or polypoid lesions throughout the duodenum. The pylorus was widely patent. The stomach was carefully inspected. There was the PEG tube present in the antrum. This was a previously placed [place] nonballoon catheter. The inner hub of the catheter was pulling out of the stomach with a ulceration there. Because of this a 20 [place]ankan balloon catheter was utilized. The old PEG tube was removed. A new 20 [place]an 10 cc balloon was placed. The balloon was filled. This kept the catheter nicely seated in the stomach lumen. The patient had a small hiatal hernia. Otherwise the study was normal. The patient was then taken to the recovery room in stable condition per anesthesia guidelines. Recommendations: Resume diet. Consider repeat PEG tube replacement with nonballoon catheter later this year.
[2024-12-23 09:51] VITALS: BP 137/82; PULSE 82
== END 2024-12-23 10:05 | disposition home or self-care (01) ==
LOC: ORWHC2ENDO 07:38
PROVIDERS: ATTEND Surgery
DX: K94.23 Gastrostomy malfunction (principal); K21.9 Gastro-esophageal reflux disease without esophagitis; K44.9 Diaphragmatic hernia without obstruction or gangrene; C76.0 Malignant neoplasm of head, face and neck; I25.10 Atherosclerotic heart disease of native coronary artery without angina pectoris; I25.2 Old myocardial infarction; I10 Essential (primary) hypertension; E78.5 Hyperlipidemia, unspecified; M19.90 Unspecified osteoarthritis, unspecified site; Z86.73 Personal history of transient ischemic attack (TIA), and cerebral infarction without residual deficits; Z95.5 Presence of coronary angioplasty implant and graft; Z82.49 Family history of ischemic heart disease and other diseases of the circulatory system; Z88.5 Allergy status to narcotic agent; Z79.82 Long term (current) use of aspirin; Z79.02 Long term (current) use of antithrombotics/antiplatelets; Z79.899 Other long term (current) drug therapy
CPT/HCPCS: 43246; J2704